=== PATIENT | female | born 1970 | race Caucasian/White ===

== ENCOUNTER → 2018-06-28 06:48 | Outpatient (CLI) | payer OTHER, SELFPAY ==
[2018-04-17 06:26] VITALS: BMI 39.7
--- NOTE | 2018-06-28 06:52 | CT_ITS ---
STUDY: CT ABDOMEN AND PELVIS WITH AND WITHOUT CONTRAST REASON FOR EXAM: Female, 47 years old. Microscopic hematuria for several years, negative bladder cystoscopy. RADIATION DOSAGE (If Supplied By Facility): CTDIvol = ( 20.19 ) mGy, DLP = ( 1966.22 ) mGycm TECHNIQUE: Transaxial images were obtained from the dome of the diaphragm to the symphysis pubis without oral contrast. 100CC ml of Isovue 300 contrast was administered following noncontrast imaging of the abdomen. Sagittal and coronal images were reconstructed. Individualized dose optimization techniques were used for this CT. COMPARISON: None. FINDINGS: The visualized lung bases are unremarkable. The visualized portions of the heart are within normal limits. Normal liver. There are surgical clips in the gallbladder fossa consistent with a prior cholecystectomy. Normal spleen. Normal pancreas. Normal bilateral adrenal glands. Normal right kidney. Normal left kidney. Normal visualized stomach. Normal small intestine. Normal colon. The appendix is visualized and appears normal. Normal abdominal aorta. Normal inferior vena cava. Normal retroperitoneum. Normal urinary bladder. There is a metallic density in the right posterior pelvis that may be related to prior tubal ligation. Of note, there is a surgical clip in the left upper abdomen (image 32) dictated represent a dislodged fallopian tube ligation clip (or sequela other surgery. The uterus is enlarged with a 3.6 x 1.9 cm slightly hypodense mass along the anterior uterine body compatible with a myometrial fibroid. There is mild fluid distention of the upper endometrial canal (image 91). There is a small umbilical hernia containing fat. Normal osseous structures. CT/CT Abd/Pelvis W/WO Contrast IMPRESSION: 1. No solid renal masses or hydronephrosis. No urinary tract calcifications. 2. Uterine fibroid. Upper endometrial canal indistinctness and fluid, limited detail on CT. Further evaluation with ultrasound and/or MRI may be useful. In the setting of vaginal bleeding, endometrial hyperplasia/neoplasm should be considered. 3. Surgical surgical clip in the left upper abdomen (and posterior hemipelvis) could represent dislodged fallopian tube ligation clips (or sequela of other surgery). Correlation with surgical history suggested. 4. Cholecystectomy. Electronically Signed: Jarod De Leon MD at 22:28 EST , Service support ,
== END ==
PROVIDERS: Family Provider Family Medicine; PCP Family Medicine; Referring Provider Urology; Visit Provider Urology
DX: R31.0 Gross hematuria (principal)
CPT/HCPCS: 74178; Q9967

== ENCOUNTER → 2018-07-03 16:53 | Outpatient (CLI) | payer OTHER, SELFPAY ==
--- NOTE | 2018-07-03 | EMB_PTH ---
PATIENT: NESSA CUMMINGS LOC: [facility] U#:[id number] AGE/SX: 54/F ROOM: RE07/03/[address]: Dr. Tina Bridges MD : 1970 BED: DIS: SPEC #: [id number] RECD: 07/03/18 16:51 STATUS: FRANDY DARIANA #: [id number] IMTIAZ: 07/03/18 00:[address]: Tina Bridges DEPT: SURGICAL PATHOLOGY RECD BY: Joseph Recinos ENTERED: 07/04/18 11:47 SP TYPE: ENDOM BX/C SPRING DR: Dr. Pato Rodriguez MD Tissues: Endometrium, NOS Procedures: Surgery Specimen Level IV HEADER OPERATION: Endometrial biopsy PRE-OP DIAGNOSIS: Abnormal uterine bleeding TISSUE SUBMITTED: Endometrial biopsy MICROSCOPIC DIAGNOSIS Endometrium, biopsy: Proliferative endometrium with focal glandular breakdown. Mild chronic endometritis. AM:miquel 07/05/18 MICROSCOPIC DESCRIPTION Slides are reviewed. GROSS DESCRIPTION Received in fixative is one container labeled with the patient's name and designated endometrial biopsy. The specimen consists of multiple fragments of hemorrhagic soft tissue that in aggregate measure 2.5 x 2 x 0.2 cm. The specimen is totally submitted in one cassette. / SJ:miquel 07/04/18 TC:3 CPT: 17776
[2018-07-03 10:58] VITALS: BMI 39.7
[2018-07-09 04:08] LABS: HPV Genotype 16, Aptima Negative (Negative)
[2018-07-10 11:04] LABS: HPV APTIMA, High Risk Positive (Negative); HPV Genotype 18,45 Aptima Negative (Negative)
== END ==
PROVIDERS: Family Provider Family Medicine; PCP Family Medicine; Referring Provider Obstetrics & Gynecology; Visit Provider Obstetrics & Gynecology
DX: Z12.4 Encounter for screening for malignant neoplasm of cervix (principal); N93.9 Abnormal uterine and vaginal bleeding, unspecified
CPT/HCPCS: 87624; 88175; 88305; G0145

== ENCOUNTER → 2018-07-11 07:25 | Outpatient (CLI) | payer OTHER, SELFPAY ==
[2018-07-03 10:58] VITALS: BMI 39.7
[2018-07-08 09:29] VITALS: BMI 39.7
--- NOTE | 2018-07-11 07:00 | BI_ITS ---
MAMMOGRAPHY - BILATERAL SCREENING REASON FOR EXAM: Female, 47 years old. Routine annual screening examination. PERTINENT HISTORY: Non-contributory. Comparison is made with prior study dated June 20, 2012 and May 03, 2011. TECHNIQUE: Digital bilateral breast juan diego (3D mammographic acquisition) in the CC and MLO projections. 2-D mediolateral oblique (MLO) and craniocaudad (CC) views of both breasts were obtained. CAD: Full Field Digital Mammography with Computer Added Detection was performed. COMPARISON: . Comparison is made with prior study dated June 20, 2012 and May 03, 2011. FINDINGS: Breast Composition: There are scattered areas of fibroglandular density. There are no dominant masses or suspicious calcifications. Stable small bilateral axillary lymph nodes. No other significant abnormalities are identified. There has been no significant change since the prior study. BI/SCREEN MAMM (CAD) W/JUAN DIEGO BILAT IMPRESSION: Stable bilateral screening mammogram. Yearly follow-up mammogram recommended. (A) ASSESSMENT CATEGORY: BIRADS Category 2: Benign. A letter regarding these results will be sent to the patient by the facility within 30 days. Approximately 10% of breast cancers are not detected by mammography. A normal mammogram should not delay biopsy of a clinically suspicious abnormality. [id number] Electronically Signed: Arslan Carreon MD at 8:54 EST , Service support ,
== END ==
PROVIDERS: Family Provider Family Medicine; PCP Family Medicine; Referring Provider Obstetrics & Gynecology; Visit Provider Obstetrics & Gynecology
DX: Z12.31 Encounter for screening mammogram for malignant neoplasm of breast (principal)
CPT/HCPCS: 77063; 77067

== ENCOUNTER → 2018-07-17 07:47 | Outpatient (CLI) | payer OTHER, SELFPAY ==
[2018-07-03 10:58] VITALS: BMI 39.7
[2018-07-08 09:29] VITALS: BMI 39.7
--- NOTE | 2018-07-17 07:49 | US_ITS ---
STUDY: ULTRASOUND OF THE FEMALE PELVIS - COMPLETE REASON FOR EXAM: Female, 47 years old. Pelvic pain. LMP: June 21, 2018. TECHNIQUE: Transabdominal and Transvaginal TECHNICAL QUALITY: Adequate. COMPARISON: CT of the abdomen and pelvis, June 28, 2018. FINDINGS: The uterus is anteverted and is in a midline position. The uterus measures 13.8 x 7.1 x 5.4 cm. Normal uterine cervix. The endometrium measures 15.6 mm in thickness, and is . There is no demonstrated endometrial mass. There is a 5.1 x 4.7 x 4.6 cm fibroid in the right anterior lower uterine segment. There is a 2.4 x 2.9 x 1.9 cm fibroid in the posterior left fundus. I.U.D. - The patient does not have an I.U.D. The right ovary is visualized. The right ovary measures 2.7 x 2.2 x 1.0 cm. There is no right ovarian cyst or ovarian mass. There is no visualized right adnexal mass or complex lesion. There is normal arterial and normal venous vascularity. The left ovary is visualized. The left ovary measures 2.7 x 2.3 x 1.9 cm. There is a 1.3 cm dominant follicle versus small cyst. There is no visualized left adnexal mass or complex lesion. There is normal arterial and normal venous vascularity. There is no fluid in the cul-de-sac. The pre void volume of the bladder was ml. The post void volume of the bladder was ml. Polycystic ovary disease: No. US/Pelvic (Non ) IMPRESSION: 1. Fibroid uterus. Largest fibroid correlates with that seen on CT. 2. Prominent endometrium. Correlate with menstrual cycle. 3. Normal ovaries. Electronically Signed: Abelardo Galvan DO at 18:10 EST Tel [phone], Service support ,
--- NOTE | 2018-07-17 07:49 | US_ITS ---
STUDY: ULTRASOUND OF THE FEMALE PELVIS - COMPLETE REASON FOR EXAM: Female, 47 years old. Pelvic pain. LMP: June 21, 2018. TECHNIQUE: Transabdominal and Transvaginal TECHNICAL QUALITY: Adequate. COMPARISON: CT of the abdomen and pelvis, June 28, 2018. FINDINGS: The uterus is anteverted and is in a midline position. The uterus measures 13.8 x 7.1 x 5.4 cm. Normal uterine cervix. The endometrium measures 15.6 mm in thickness, and is . There is no demonstrated endometrial mass. There is a 5.1 x 4.7 x 4.6 cm fibroid in the right anterior lower uterine segment. There is a 2.4 x 2.9 x 1.9 cm fibroid in the posterior left fundus. I.U.D. - The patient does not have an I.U.D. The right ovary is visualized. The right ovary measures 2.7 x 2.2 x 1.0 cm. There is no right ovarian cyst or ovarian mass. There is no visualized right adnexal mass or complex lesion. There is normal arterial and normal venous vascularity. The left ovary is visualized. The left ovary measures 2.7 x 2.3 x 1.9 cm. There is a 1.3 cm dominant follicle versus small cyst. There is no visualized left adnexal mass or complex lesion. There is normal arterial and normal venous vascularity. There is no fluid in the cul-de-sac. The pre void volume of the bladder was ml. The post void volume of the bladder was ml. Polycystic ovary disease: No. US/Transvaginal Non- IMPRESSION: 1. Fibroid uterus. Largest fibroid correlates with that seen on CT. 2. Prominent endometrium. Correlate with menstrual cycle. 3. Normal ovaries. Electronically Signed: Abelardo Galvan DO at 18:10 EST Tel [phone], Service support ,
== END ==
PROVIDERS: Family Provider Family Medicine; PCP Family Medicine; Referring Provider Obstetrics & Gynecology; Visit Provider Obstetrics & Gynecology
DX: R10.2 Pelvic and perineal pain (principal)
CPT/HCPCS: 76830; 76856; 93976

== ENCOUNTER 2018-07-25 06:29 | Day surgery (SDC) | payer OTHER, SELFPAY ==
[2018-07-03 10:58] VITALS: BMI 39.7
[2018-07-18 15:48] VITALS: BMI 39.7
[2018-07-22 09:47] LABS: Thyroid Stim Hormone (TSH) 1.95 uIU/mL (0.358-3.74)
[2018-07-22 12:24] LABS: Hematocrit 36.3 % (37-47); Mean Corpuscular Volume 80.5 fL (81-99); Red Blood Count 4.51 M/mm3 (4.2-5.4); White Blood Count 8.4 K/mm3 (4.4-11.0)
[2018-07-22 12:25] LABS: Mean Corp Hgb Conc 30.3 g/gl (32-36); Mean Corpuscular Hgb 24.4 pg (27.0-32.0); Mean Platelet Vol. 9.9 fl (6.2-12.0); Platelet Count 326 K/mm3 (150-450); RBC Distribution Width CV 16.2 % (11.6-14.6); RBC Distribution Width SD 47.6 fl (35.1-43.9)
[2018-07-22 12:30] LABS: Basophil% 0.1 % (0-1); Eosinophils% 1.3 % (0-5); Lymphocyte % 22.5 % (19-41); Monocyte% 3.2 % (0-10); Neutrophil % 72.8 % (47-70); POSITIVE COUNT NO; POSITIVE DIFFERENTIAL NO; POSITIVE MORPHOLOGY NO
--- NOTE | 2018-07-24 10:51 | HP.PCM_ITS ---
- Problem List (1) Abnormal uterine bleeding Status: Acute Comment: discussed options, bloodwork and US ordered, EMB, plan LAVH BS cysto History and Physical Date of Admission: 07/25/18 Intake Vital Signs 07/03/18 Body Mass Index (BMI) 39.7 07/03/18 Height 5 ft 4 in 07/03/18 Weight: 230 lb 07/03/18 Body Mass Index (BMI) 39.4 07/03/18 Blood Pressure 108/72 Intake Visit Reasons: annual Chief Complaint: NEW annual Manager [employer] Required: No Is patient in pain?: Yes Allergies meperidine [From Demerol] Allergy (Verified 07/03/18 10:52) Swelling morphine Allergy (Verified 07/03/18 10:52) Swelling promethazine [From Phenergan] Allergy (Verified 07/03/18 10:52) Swelling Medications mirabegron ER 50 mg tablet,extended release 24 hr 50 mg PO DAILY 07/03/18 [History Confirmed 07/03/18] Is last menstrual period known: No Post menopausal: No Patient : No : No [facility] Medical History History of rheumatic fever (Acute) Surgical History delivery delivered (Acute) H/O tubal ligation (Acute) History of cholecystectomy (Acute) brain tumor removed (Acute) Family History Father CAD (coronary artery disease) PVD (peripheral vascular disease) Bladder cancer Mother Colon cancer Cancer uterine Other Diabetes Social History Smoking Status: Never smoker alcohol intake: never substance use type: does not use caffeine: Yes what type of physical activity do you participate in: walking seatbelt use: always do you feel safe at home: Yes additional social history: Naty Michelle 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 Date Name GA/Weeks Outcome Route Bth Weight Infant Gen Labor Lgth Anesthesia Del Locatn Provider FOB Unknown 1996 Forrest live - full term Unknown 2001 Martinez live - full term HPI annual: Details: NESSA CUMMINGS is a 47 year old who presents for annual exam. she has been having irregular bleeding. she has had bleeding most days. she has seen lakesha jordan for urinary issues- mixed incontiennce and pelvic floor weakness. Last PAP: due History of abnormal PAP: no Last mammogram: due Female Reproductive History Cycle Length: <21 Bleeding Duration: 10 Menopausal Symptoms: No hot flashes, No night sweats, No weight change, No mood changes, No difficulty concentrating, No sleep problems, No change in libido ROS Const Constitutional: Denies night sweats Cardio Card: Denies chest pain Resp Resp: Denies cough or dyspnea GI GI: Reports as per HPI; denies abdominal pain, bloating, constipation, nausea or vomiting : Denies hot flashes or nipple discharge Skin Skin/Breast: Denies changing lesions, breast lump, breast pain, breast skin changes or nipple discharge Psych Psych: Denies change in sex drive or difficulty concentrating Exam Const General: cooperative, healthy appearing, comfortable, no acute distress, well developed, well groomed [facility] Head: normal to inspection, normocephalic Ears: hearing grossly normal bilaterally, external ears normal Nose: external nose normal Face and sinus: normal facial exam Neck Neck: normal visual inspection, full ROM, no lymphadenopathy Thyroid: thyroid normal Chest Chest palpation & inspection: normal inspection of the chest Breast inspection: normal inspection of the breasts, normal inspection of the axillae Breast palpation: normal palpation of the breasts, normal palpation of the axillae, no axillary lymphadenopathy Resp Effort & Inspection: normal respiratory effort GI Inspection: normal to inspection, non-distended Palpation: soft, no hepatosplenomegaly, no guarding General: bladder normal to palpation External Female Exam: normal external appearance, normal appearance of the urethra, no lesions Urethra: normal appearance of the urethra, normal palpation Speculum Exam - Vagina: normal appearance of the vagina, normal vaginal discharge Speculum Exam - Cervix: normal appearance of the cervix, no cervical discharge, no lesions, nontender Bimanual Exam- Vagina & Uterus: normal bimanual exam, uterine size normal, bladder normal to palpation, No cervical tenderness, uterine mobility normal, uterine consistency normal, uterus non-tender, no cervical motion tenderness Bimanual Exam- Adnexa, other: normal adnexae, no adnexal masses, adnexae non- tender Skin General: no rashes or lesions noted Neuro General: alert, moves all extremities, no focal motor deficits Extrem General: normal to inspection, no pedal edema Psych Appearance: grossly normal Mental Status: mental status grossly normal Affect: normal affect Speech and Movement: speech and movement normal Attitude: cooperative Office Procedures Endometrial Biopsy Endometrial Biopsy Test: Yes declined Consent Signed: Yes Time out checklist: patient, procedure, site marked/identified, positioning of patient, supplies available, allergies confirmed, team agrees on procedure Time out time: 15:00 tenaculum used: Yes dilator used: No Details: Cervix prepped with betadine and pipelle inserted into uterus without complication. Specimen obtained and sent to lab for analysis. All instruments removed from vagina without complications. Excellent hemostasis noted. Assessment & Plan Problems 1. Abnormal uterine bleeding N93.9 discussed options, bloodwork and US ordered, EMB, plan LAVH BS cysto 2. Intramural leiomyoma of uterus D25.1 discussed options, bloodwork and US ordered, EMB, plan LAVH BS cysto Plan see problem list. emb done. discussed surgical risks including risks of anesthesia, infection, bleeding, injury to bowel, bladder or blood vessels, and patient wishes to proceed with surgery. Orders Orders: PAP IG HPV APTIMA /18,45 07/03/18 Endometrial Biopsy 07/03/18 R10.2 SCREEN MAMM (CAD) W/JUAN DIEGO BILAT 07/03/18 Thyroid Stim Hormone (TSH) 07/03/18 H66.90 CBC W/Diff, Automated 07/03/18 R10.2 Pelvic (Non ) 07/03/18 R10.2 Transvaginal Non- 07/03/18 R10.2 Coding Level of Care Code Off vis,new,prev 40-64yrs Diagnoses Abnormal uterine bleeding N93.9 Intramural leiomyoma of uterus D25.1 ??Uterine leiomyoma location: intramural Additional Codes Endometrial Biopsy (98166) UPDATE- I have seen the patient and performed any clinically relevant updates to the history and physical exam. Tina Bridges MD
[2018-07-25] VITALS (11 sets, daily range): BP systolic 96–124; BP diastolic 60–88; PULSE 65–83; RESP 14–18; TEMP 36.4–36.8; O2SAT 94–100; BMI 39.5
[2018-07-25] MEDS: Bupivacaine 0.25% 30 ML Vial (06:50)
[2018-07-25 06:55] LABS: Bedside Glucose 68 mg/dL (70-110)
[2018-07-25] MEDS: Phenazopyridine 95 MG Tablet 190 MG PO (06:57)
[2018-07-25] MEDS: Scopolamine 1mg/72hr Patch 1 PATCH TRANSDERM. (06:58)
[2018-07-25] MEDS: Celecoxib 200 MG Capsule 400 MG PO (06:58)
[2018-07-25] MEDS: Acetaminophen 500 MG Tablet 1000 MG PO ×2 (06:58→14:34)
[2018-07-25] MEDS: Enoxaparin 40 MG/0.4 ML Syringe SC (06:59)
[2018-07-25] MEDS: Gabapentin 600 MG Tablet PO ×2 (06:59)
[2018-07-25] MEDS: Lactated Ringers 1,000 ML 40 ML IV (07:24)
[2018-07-25] MEDS: Magnesium Sulfate 4gm/100mL 4 GM/100 ML IV.SOLN. IV (07:27)
--- NOTE | 2018-07-25 08:30 | HYST_PTH ---
PATIENT: NESSA CUMMINGS LOC: [facility] [place] U#:[id number] AGE/SX: 48/F ROOM: RE07/25/[address]: Dr. Tina Bridges MD : 1970 BED: DIS: 07/25/2018 SPEC #: [id number] RECD: 07/25/18 14:10 STATUS: FRANDY DARIANA #: [id number] IMTIAZ: 07/25/18 08:[address]: Tina Bridges DEPT: SURGICAL PATHOLOGY RECD BY: Joseph Recinos ENTERED: 07/25/18 14:42 SP TYPE: HYSTERECT OTHR DR: Dr. Pato Rodriguez MD Tissues: Uterus, NOS Procedures: Surgery Specimen Level V HEADER OPERATION: Total laparoscopic hysterectomy, bilateral salpingectomy PRE-OP DIAGNOSIS: Intramural leiomyoma of uterus TISSUE SUBMITTED: Uterus, cervix, bilateral tubes MICROSCOPIC DIAGNOSIS Uterus, hysterectomy: Cervix - nabothian cysts. Endometrial polyp - simple hyperplasia without atypia. Endometrium - mildly disordered proliferative endometrium. Myometrium - leiomyomas and focal superficial adenomyosis. Right fallopian tube - benign paratubal cysts. Left fallopian tube - no pathologic change. AM:miquel 07/26/18 MICROSCOPIC DESCRIPTION Slides are reviewed. GROSS DESCRIPTION Received in fixative is one container labeled with the patient's name and designated uterus. The specimen consists of a uterus with attached cervix, detached right fallopian tube and attached left fallopian tube. The uterus with cervix measures 11 x 7.5 x 6.5 cm and weighs 238 gm. The ectocervix is oval in contour and free of mass lesions. The endocervical canal measures 4 cm in length and is grossly unremarkable. The triangular endometrial cavity measures 5.5 x 3.5 cm. The posterior endometrial surface contains a smooth, glistening, fleshy polyp measuring 3 cm in greatest dimension. The myometrium immediately beneath the polyp is not indurated. The myometrium measures 2.3 cm in average thickness and contains two rubbery nodules ranging in size from 1 to 4.5 cm. The nodules are intramural in location. On cut sections, the nodules have a whorled appearance without areas of cyst formation, necrosis or hemorrhage. The right and left fallopian tubes are similar in appearance. The right fallopian tube measures 4 cm in length and left fallopian tube measures 6 cm in length. The soft tissue adjacent to the mid portion of the right fallopian tube contains a smooth, glistening cyst measuring 1.5 cm in greatest dimension and containing clear fluid. Needle Setter sections are submitted in 13 cassettes as follows: 1 - anterior cervix, 2 - posterior cervix, 3 & 4 - endometrial polyp, 5 & 6 - anterior uterine wall, 7 & 8 - posterior uterine wall, 9 - smaller myometrial mass, 10 & 11 - largest myometrial mass, 12 - right fallopian tube and paratubal cyst, 13 - left fallopian tube. / AM:miquel 07/25/18 TC:1 CPT: 56478
[2018-07-25] MEDS: Lubricating Jelly 60 GM Tube 30 GM TOPICAL (08:39)
--- NOTE | 2018-07-25 08:46 | OP.PCM_ITS ---
Problem List (1) Abnormal uterine bleeding Status: Acute Comment: discussed options, bloodwork and US ordered, EMB, plan [facility] BS cysto Report of Operation Date of Procedure: 07/25/18 Pre-Operative Diagnosis: aub Post-Operative Diagnosis: same Surgery/Procedure Performed:: h bs cysto Description of Surgical Findings:: enlarged uterus with fibroid and limited vaginal access minimal uterine descent box toe maker: Yaneth Rae Type of Anesthesia:: General Special Medications: none Specimen's removed: uterus tubes Drains: cruz Estimated Blood Loss (mL): 350 Fluids Replaced: crystalloid Description of Procedure: Patient received preoperative antibiotics and SCDs were on preoperatively. Patient was taken back to the operating room and placed in the dorsal lithotomy position. General anesthesia was induced and patient was prepped and draped in normal sterile fashion. Uterine manipulator was placed inside the uterus and Cruz catheter placed in the bladder. The umbilicus was grasped with towel clamps and an intraumbilical incision was made after injecting with quarter percent Marcaine and a Veress needle entered into the abdomen confirmed to be intra-abdominal with a low opening pressure. Abdomen was insufflated with CO2 gas and the Veress needle removed and the 5 mm trocar was placed under direct visualization without complication. Right and left lower quadrants were transilluminated and injected with quarter percent Marcaine and 5 mm ports placed under direct visualization. Pelvis was well visualized see operative findings for additional information. Bilateral fallopian tubes were identified and transected with the LigaSure device across the mesosalpinx to the level of the utero-ovarian ligament which was also transected with the LigaSure device. The broad ligament was opened up by transecting the round ligament bilaterally and skeletonizing the uterine vessels bilaterally and creating a bladder flap using the LigaSure device. The uterine arteries were transected bilaterally with good visualization of the bladder and the ureters were seen to be inferior lateral to the operative area. Attention was then paid to the vaginal portion of the procedure and the cervix was grasped with Emerita clamps and very minimal descent and limited uterine axis was noted so the decision to convert to a total laparoscopic hysterectomy was made. A different uterine manipulator was inserted into the uterus with the vaginal ring for manipulation. Attention was then paid to the microscopic portion again and the anterior and posterior colpotomies were made with monopolar scissors and carried through bilaterally to detach the uterus from the vaginal cuff with good visualization of lateralization of the ureters. Attention was then paid to the vaginal portion of the procedure and after the uterus was removed without complication the vaginal mucosa was reapproximated incorporating the posterior peritoneum. This was reapproximated using 0 Vicryl [id number] sutures. Excellent hemostasis was noted. The cystoscopy was then performed and bilateral ureteral strong spray was noted and the bladder was noted to have no abnormality or lesions seen. Cruz catheter was replaced and then attention paid to the abdominal portion of the procedure again. The pelvis and cul-de-sac was well visualized and no significant active bleeding noted but some raw areas were seen on the peritoneum and therefore Kelly was applied. Pressure was taken down and the areas visualized and noted of excellent hemostasis. All ports were removed under direct visualization without complication and the abdomen was desufflated of air. The instruments removed from the abdomen and the vagina vaginal sweep was negative. Port sites on the abdomen were closed with 4-0 Monocryl interrupted sutures and Steri's and windows were applied. She was awoken and taken recovery in stable condition. Grafts/Implants Used: none - Complications none - Admit VTE Documentation VTE Present on Admission: No VTE Mechan Device Prophylaxis: SCD's VTE Pharm Prophylaxis ordered?: Yes
--- NOTE | 2018-07-25 08:49 | PCM.DC.VHY ---
Discharge Diet: No Restrictions Discharge Activity: Return to Normal Activity, May Not Drive, May Shower May resume sexual activity in: 6-8 weeks Call your doctor if your incision/area has: Continuous Slow Oozing, Sudden Increased Bleeding, Increased Pain/ Swelling, Increased Redness, Foul Smelling Discharge Call your doctor if you observe: Fever of 101 or Higher, Inability to urinate, Inability to have a bowel movement, Using more than one pad per hour Allergies/Adverse Reactions: Allergies meperidine [From Demerol] Allergy (Verified 07/18/18 15:48) Swelling morphine Allergy (Verified 07/18/18 15:48) Swelling promethazine [From Phenergan] Allergy (Verified 07/18/18 15:48) Swelling oxycodone [From Percocet] Adverse Reaction (Severe, Verified 07/18/18 15:48) Nausea/Vom/Diarrhea Medications to take at Discharge mirabegron ER 50 mg tablet,extended release 24 hr 50 mg PO DAILY 07/03/18 Escitalopram Oxalate [Lexapro] 10 mg PO DAILY 07/18/18 Hydrocodone/Acetaminophen [[place] 5-325 Tablet] 1 each PO Q4H PRN PRN 4 Days #15 tablet 07/25/18 Ibuprofen [Motrin] 600 mg PO Q6H PRN PRN #30 tablet 07/25/18 The following prescriptions were given: Hydrocodone/Acetaminophen [[place] 5-325 Tablet] 1 each PO Q4H PRN PRN 4 Days #15 tablet PRN Reason: Pain Ibuprofen [Motrin] 600 mg PO Q6H PRN PRN #30 tablet PRN Reason: Pain Primary Care Physician: Pato Rodriguez MD [Primary Care Provider] - Test Results: Test results from this visit will be discussed in further detail at your follow-up appointment, if applicable. Please Follow Up With: Tina Bridges MD - [phone]
[2018-07-25] MEDS: Lactated Ringers 1,000 ML 70 ML IV (11:47)
[2018-07-25] MEDS: Ketorolac 30 MG/ML Syringe IV (12:08)
[2018-07-25] MEDS: Lactated Ringers 1,000 ML 100 ML IV (12:12)
[2018-07-25] MEDS: Docusate Sodium 100 MG Capsule PO (14:34)
--- NOTE | 2018-07-25 17:29 | PCM.PN.OB ---
Subjective: doing wll no cp sob n v tolerating po ambulating, needs to void more - Physical Exam General: Alert, Oriented x3 Vital Signs Temp Pulse Resp BP Pulse Ox 98 F 83 16 103/69 98 07/25/18 16:26 07/25/18 16:26 07/25/18 16:26 07/25/18 16:26 07/25/18 16:30 Oxygen Flow Rate (L/min) 2 Oxygen Delivery Method Room Air Weight: 230 lb 9.656 oz Body Mass Index (BMI) 39.5 Intake and Output for Last 24 Hours 07/23/18 07/24/18 07/25/18 23:59 23:59 23:59 Intake Total 2656 / 2656 Output Total 740 / 740 Balance 1916 / 1916 POC Glucose 07/25/18 06:52 POC Glucose 68 L Medical Necessity - Tobacco Use Smoking Status: Never smoker Tobacco Use: Non-smoker Assessment/Plan All Active Problems (Last Reviewed 07/18/18 @ 15:48 by Cristiana Navarro) HPV test positive (Acute) Abnormal uterine bleeding (Acute) Otitis media (Acute) Uterine fibroid (Resolved) s/p TLH BS cysto ready for dc home when voiding
== END 2018-07-25 18:17 | disposition home or self-care (01) ==
LOC: SDC 06:30 → AC 06:31 → MS3 09:13
PROVIDERS: Family Provider Family Medicine; PCP Family Medicine; Referring Provider Obstetrics & Gynecology; Visit Provider Obstetrics & Gynecology
PROC: 0UT9FZZ Resection of Uterus, Via Natural or Artificial Opening With Percutaneous Endoscopic Assistance (ICD-10-PCS; CPT 58571; principal; 2018-07-25 08:05)
DX: N93.9 Abnormal uterine and vaginal bleeding, unspecified (principal); D25.1 Intramural leiomyoma of uterus; N88.8 Other specified noninflammatory disorders of cervix uteri; N84.0 Polyp of corpus uteri; N80.0 Endometriosis of uterus; N83.8 Other noninflammatory disorders of ovary, fallopian tube and broad ligament; Z90.49 Acquired absence of other specified parts of digestive tract; N32.81 Overactive bladder
CPT/HCPCS: 00840; 58571; 36415; 82962; 84443; 85025; 86850; 86900; 88307; J7120; J2405

== ENCOUNTER → 2018-12-17 07:42 | Outpatient (CLI) | payer SELFPAY ==
[2018-09-10 13:45] VITALS: BMI 39.5
--- NOTE | 2018-12-17 07:52 | CT_ITS ---
STUDY: CARDIAC CALCIUM SCORING - CT CHEST REASON FOR EXAM: Female, 48 years old. Family history of heart disease. Rheumatic fever as a child. RADIATION DOSAGE (If Supplied By Facility): CTDIvol = ( 12.19 ) mGy, DLP = ( 170.66 ) mGycm TECHNIQUE: Axial non-enhanced images were acquired through the heart for the sole purpose of measuring coronary artery calcium. Individualized dose optimization techniques were used for this CT. COMPARISON: None. FINDINGS: This portion of the report is being generated solely for the evaluation of noncoronary artery structures which have been assessed on plain another report. The visualized lungs are well-expanded and free of mass or infiltrate. Normal heart. Normal pericardium. Bilateral mediastinum and mansi. Normal pulmonary arteries. There is minimal atherosclerotic changes of the visualized thoracic aorta. There are degenerative changes of the thoracic spine. Splenomegaly. CT/Limited Chest CT w/CCTA IMPRESSION: 1. Minimal atherosclerotic changes of the aortic arch. 2. Degenerative changes of the thoracic spine. 3. Splenomegaly. Electronically Signed: Abelardo Galvan DO at 22:27 EDT Tel [phone], Service support ,
[2018-12-17 07:56] VITALS: BP 115/82; PULSE 70; RESP 16; O2SAT 99; BMI 38.9
--- NOTE | 2018-12-17 12:31 | CA.SCORE ---
Calcium Scoring Date of Study:: 12/17/18 Coronary Calcium Scoring: High-resolution Computed Tomographic imaging of the chest was performed on [12/17/2018], with particular attention paid to the coronary arteries. Images from the examination were analyzed for the presence and extent of coronary artery calcification , using coronary calcium quantification software. The patient tolerated the procedure well and there were no complications. The results of the coronary calcification analysis are provided below. - Findings Left Main (LM): 0 Left Anterior Descending (LAD): 0 Left Circumflex (LCX): 0 Right Coronary Artery (RCA): 0 Total Agatston Score: 0 Percentile Rankin - Conclusion Calcium Scoring Interpretation: 0 No identifiable atherosclerotic plaque. Very low cardiovascular disease risk. <5% chance of presence coronary artery disease A Negative Examination 1-10 Minimal Plaque burden. Significant coronary artery disease very unlikely. 11-100 Mild plaque burden. Likely mild or minimal coronary atherosclerosis. 101-400 Moderate plaque burden Moderate non-obstructive coronary artery disease highly likely. Over 400 Extensive plaque burden. High likelihood of at least one significant coronary stenosis (>50% diameter) Calcium Score: 0 Negative Examination - The above suggests no evidence of atherosclerotic plaquing. A full evaluation of cardiac risk should include assessment of all conventional risk factors, and the scores and percentiles reported herein should be evaluated in this context.
== END ==
PROVIDERS: Family Provider Family Medicine; PCP Family Medicine; Referring Provider Internal Medicine Cardiovascular Disease; Visit Provider Internal Medicine Cardiovascular Disease
DX: Z82.49 Family history of ischemic heart disease and other diseases of the circulatory system (principal); Z86.19 Personal history of other infectious and parasitic diseases
CPT/HCPCS: 75571; 76380

== ENCOUNTER → 2019-06-13 14:22 | Outpatient (CLI) | payer OTHER, BC, SELFPAY ==
[2019-06-11 16:14] VITALS: BMI 39.1
--- NOTE | 2019-06-13 14:23 | RAD_ITS ---
STUDY: X-RAY - LEFT KNEE REASON FOR EXAM: Female, 48 years old. PATIENT FELT A PAIN AND A POP IN KNEE 4 DAYS AGO TECHNIQUE: 4 view(s) of the knee. COMPARISON: None. FINDINGS: Normal visualized distal femur. Normal visualized proximal tibia and fibula. Normal proximal tibiofibular articulation. There is mild degenerative arthrosis of the medial femorotibial compartment. There is mild degenerative arthrosis of the lateral femorotibial compartment. There is mild degenerative arthrosis of the patellofemoral articulation. There is a soft tissue prominence in the suprapatellar region suggesting a small volume joint effusion. The soft tissue structures are unremarkable. RAD/Knee 4 or More Views IMPRESSION: Degenerative arthrosis with effusion. Electronically Signed: Harry Madrigal MD at 15:22 EST Tel , Service support ,
== END ==
PROVIDERS: PCP Family Medicine; Referring Provider Physician Assistant; Visit Provider Physician Assistant
DX: M25.562 Pain in left knee (principal)
CPT/HCPCS: 73564

== ENCOUNTER → 2019-06-19 12:36 | Outpatient (CLI) | payer OTHER, BC, SELFPAY ==
[2019-06-13 14:35] VITALS: BMI 39.1
--- NOTE | 2019-06-19 12:38 | MRI_ITS ---
STUDY: MRI LEFT KNEE REASON FOR EXAM: Left knee pain 1.5 weeks, question tibial plateau injury. TECHNIQUE: Standardized fat and water weighted pulse sequences were obtained in all 3 orthogonal planes. COMPARISON: Radiographs 06/13/2019. FINDINGS: Normal medial meniscus. There is arthrosis of the medial femorotibial compartment with small marginal osteophytes and partial thickness chondral loss of the medial femoral condyle (T2 sagittal image 9). Normal medial femoral condyle and tibial plateau. Normal medial collateral ligamentous complex (MCL). Normal distal semimembranosus, gracilis and semitendinosus tendons. Normal lateral meniscus. There is mild arthrosis of the lateral femorotibial compartment with mild irregularity of the articular cartilage of the lateral femoral condyle (T2 sagittal image 19). Normal lateral femoral condyle and tibial plateau. Normal proximal tibiofibular articulation. Normal lateral collateral (fibular) ligament. Normal popliteus tendon. Normal biceps femoris tendon. Normal anterior cruciate ligament (ACL). Normal posterior cruciate ligament (PCL). Normal congruent patellofemoral articulation. There is arthrosis of the patellofemoral compartment with partial thickness chondral loss (T2 sagittal image 13). Normal medial and lateral patellar retinaculum. Normal visualized quadriceps tendon. Normal patellar tendon. Normal Hoffa''s fat pad. There is a small joint effusion. There is an intra-articular body posterior to the distal posterior cruciate ligament (proton density sagittal images 18, 19) measuring 1 cm in length. There is mild edema in the subcutis adipose space. There is mild cystic change in the proximal tibia near the insertion site of the posterior cruciate ligament. MRI/Lower Ext Joint Only (Routine) IMPRESSION: Tricompartmental arthrosis. Small joint effusion. Posterior intra-articular body. No demonstrated tibial plateau fracture. Electronically Signed: Zac Whittington MD at 13:44 EST Tel , Service support ,
== END ==
PROVIDERS: PCP Family Medicine; Referring Provider Physician Assistant; Visit Provider Physician Assistant
DX: M23.92 Unspecified internal derangement of left knee (principal)
CPT/HCPCS: 73721

== ENCOUNTER → 2019-12-05 09:42 | Outpatient (CLI) | payer OTHER, BC, SELFPAY ==
[2019-12-05 06:13] VITALS: BMI 39.1
== END ==
PROVIDERS: PCP Family Medicine; Referring Provider Physician Assistant Surgical; Visit Provider Physician Assistant Surgical
DX: J02.9 Acute pharyngitis, unspecified (principal)
CPT/HCPCS: 87070

== ENCOUNTER → 2020-01-19 06:02 | Outpatient (CLI) | payer OTHER, BC, SELFPAY ==
[2019-12-05 06:13] VITALS: BMI 39.1
[2020-01-19 07:47] LABS: Ferritin 41 ng/mL (8-252); Iron Binding Capacity,Total 364 ug/dL (250-450)
== END ==
PROVIDERS: PCP Family Medicine; Referring Provider Family Medicine; Visit Provider Family Medicine
DX: D64.9 Anemia, unspecified (principal)
CPT/HCPCS: 36415; 82728; 83550

== ENCOUNTER 2020-03-30 06:56 | Day surgery (SDC) | payer OTHER, BC, SELFPAY ==
[2020-02-27 13:11] VITALS: BMI 39.1
--- NOTE | 2020-03-30 | COLBX_PTH ---
PATIENT: NESSA CUMMINGS LOC: EN U#:[id number] AGE/SX: 49/F ROOM: RE03/30/[address]: Dr. Ed Douglas MD : 1970 BED: DIS: 03/30/2020 SPEC #: [id number] RECD: 03/30/20 10:58 STATUS: FRANDY WESTBROOK #: [id number] IMTIAZ: 03/30/20 00:[address]: Ed Douglas DEPT: SURGICAL PATHOLOGY RECD BY: Trent Bonilla ENTERED: 03/30/20 10:59 SP TYPE: COLON BX OTHR DR: Dr. Ptao Longoria MD Tissues: Transverse colon Procedures: Surgery Specimen Level IV HEADER OPERATION: Colonoscopy (MAC) PRE-OP DIAGNOSIS: Screen for colon cancer Z12.11 TISSUE SUBMITTED: Transverse polyp MICROSCOPIC DIAGNOSIS Transverse colon polyp, biopsy: Fragments of tubulovillous adenoma. SJ:miquel 11/11/20 MICROSCOPIC DESCRIPTION Slides are reviewed. GROSS DESCRIPTION Received in fixative is one container labeled with the patient's name and designated transverse polyp. The specimen consists of a piece of penny-pink polyp measuring 1 x 1 x 0.8 cm. This piece is bisected. Also present in the container are multiple pieces of penny-pink soft tissue measuring in aggregate 2 x 1 x 0.3 cm. The entire specimen is submitted in one cassette. / SJ:miquel 03/30/20 TC:1 CPT: 91368
--- NOTE | 2020-03-30 06:00 | HP_ITS ---
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 The patient reports her last colonoscopy was over 10 years ago. She does have a family history of colon cancer in her mother at age under 60. Patient is not having any abdominal pain or blood in her stool. Her last colonoscopy was normal. ROS General General: No weight change or fatigue Cardio Cardiovascular: No murmur, pacemaker, heart disease, atrial fibrillation, high blood pressure, heart attack, heart stent, palpitations, shortness of breat with exertion or chest pain Psych Psychiatric: Yes depression; no anxiety Resp Respiratory: No shortness of breath, No sleep apnea, No cough, No COPD, No asthma, No emphysema, No wheezing Gastro Gastrointestinal: No abdominal pain, No nausea or vomiting, No diarrhea, Yes constipation, No blood in stool, Yes acid reflux, No hemorrhoids, No ulcers, No gallbladder problem, No black,tarry stools Alex Hematologic: No blood thinners, Yes anemia Exam Const General: cooperative Orientation: alert, oriented x3 Resp Effort & Inspection: normal respiratory effort Auscultation: clear to auscultation bilaterally Cardio Rate: regular rate Rhythm: regular rhythm Heart Sounds: no murmurs GI Inspection: non-distended Palpation: soft, nontender Assessment & Plan Problems 1. Family history of malignant neoplasm of colon in first degree relative diagnosed when younger than 60 years of age Z80.0 2. Screen for colon cancer Z12.11 Plan Patient requires screening colonoscopy. Her family member was diagnosed with colon cancer under age 60 so I would recommend that she has them every 5 years instead of 10. I explained endoscopy in detail to the patient. I explained the risks including but not limited to stroke or heart attack with anesthesia, perforation of the GI tract, bleeding, infection. I explained that any of these could necessitate further emergency surgery. The patient understands and all questions were answered sufficiently. The patient wishes to proceed with procedure. We discussed the current risks associated with COVID-19. While it is understood that there is a community spread of COVID-19, the risk of chuy COVID-19 while at [facility] ([facility]) is very low; however, the risk cannot be completely mitigated because of the community spread of the disease. We discussed in detail the risk of exposure to and/or potential harm posed by the COVID-19 virus with having a surgery/procedure at this time versus the risk of delaying the surgery/procedure. It is not possible to know either the risk of delaying the surgery or procedure or chance of getting an infection with perfect accuracy, but a joint decision was made to proceed at this time with the scheduled surgery/procedure as indicated on the consent form. Patient was notified that we will need to comply with any screening or testing [facility] wishes to perform or that surgery may be delayed for any positive results. Ed Douglas MD Pager: [facility] [address] [place] [address], [address] [place] [address] Office: Orders Orders: Colonoscopy Today Z12.11 Coding Level of Care Code Off vis,new,level 3 Diagnoses Family history of malignant neoplasm of colon in first degree relative diagnosed when younger than 60 years of age Z80.0 Screen for colon cancer Z12.11 I have re-examined the patient. There are no clinical changes since date of exam.
[2020-03-30 07:34] VITALS: BP 139/70; PULSE 75; RESP 18; TEMP 36.5; O2SAT 99; BMI 44.0
[2020-03-30] MEDS: Lactated Ringers 1,000 ML 100 ML IV (07:46)
--- NOTE | 2020-03-30 08:44 | OP.COLON_ITS ---
Patient Name: Yasmeen Jiménez Procedure Date: 03/30/2020 8:14 AM Date of : 1970 Age: 49 Procedure: Colonoscopy Indications: Screening for colorectal malignant neoplasm Providers: Ed Douglas MD Referring MD: Pato Longoria Md Medicines: Monitored Anesthesia Care Patient Profile: This is a 49 year old female. Refer to note in patient chart for documentation of history and physical. Last Colonoscopy: several years ago. Complications: No immediate complications. Estimated blood loss: Minimal. Procedure: Pre-Anesthesia Assessment: - Prior to the procedure, a History and Physical was performed, and patient medications and allergies were reviewed. The patient's tolerance of previous anesthesia was also reviewed. The risks and benefits of the procedure and the sedation options and risks were discussed with the patient. All questions were answered, and informed consent was obtained. Prior Anticoagulants: The patient has taken no previous anticoagulant or antiplatelet agents. After reviewing the risks and benefits, the patient was deemed in satisfactory condition to undergo the procedure. After I obtained informed consent, the scope was passed under direct vision. Throughout the procedure, the patient's blood pressure, pulse, and oxygen saturations were monitored continuously. The pediatric colonoscope was introduced through the anus and advanced to the cecum, identified by appendiceal orifice and ileocecal valve. The colonoscopy was performed without difficulty. The patient tolerated the procedure well. The quality of the bowel preparation was good. Scope In: 8:22:22 AM Scope Withdrawal Time 0 hours 6 minutes 17 seconds Scope Out: 8:41:10 AM Total Procedure Duration Time 0 hours 18 minutes 48 seconds Findings: A medium polyp was found in the transverse colon. The polyp was pedunculated. The polyp was removed with a hot snare. Resection and retrieval were complete. Verification of patient identification for the specimen was done. The exam was otherwise without abnormality on direct and retroflexion views. Impression: - One medium polyp in the transverse colon, removed with a hot snare. Resected and retrieved. - The examination was otherwise normal on direct and retroflexion views. Recommendation: - Await pathology results. - Repeat colonoscopy in 3 years for surveillance based on pathology results. - Discharge patient to home. - Resume previous diet. - Continue present medications. Procedure Code(s): --- Professional --- 35752, Colonoscopy, flexible; with removal of tumor(s), polyp(s), or other lesion(s) by snare technique Diagnosis Code(s): --- Professional --- Z12.11, Encounter for screening for malignant neoplasm of colon D12.3, Benign neoplasm of transverse colon (hepatic flexure or splenic flexure) CPT copyright 2017 [employer]. All rights reserved. The codes documented in this report are preliminary and upon powertrain calibration engineer review may be revised to meet current compliance requirements. Ed Douglas MD 03/30/2020 8:44:00 AM This report has been signed electronically. Number of Addenda: 0 Note Initiated On: 03/30/2020 8:14 AM
--- NOTE | 2020-03-30 08:44 | OP.CCLET_ITS ---
03/30/2020 Pato Longoria Md Re : Colonoscopy procedure for Yasmeen Jiménez Dear Von This procedure was performed on Monday, March 30, 2020. My impressions and recommendations are as follows: Impressions : - One medium polyp in the transverse colon, removed with a hot snare. Resected and retrieved. - The examination was otherwise normal on direct and retroflexion views. Recommendations : - Await pathology results. - Repeat colonoscopy in 3 years for surveillance based on pathology results. - Discharge patient to home. - Resume previous diet. - Continue present medications. My findings are described in the full procedure note, which is enclosed. If I can be of further assistance, please feel free to contact me at Doctor phone number(s): , Work: . Sincerely, Ed Douglas MD 03/30/2020 8:44:00 AM This report has been signed electronically.
[2020-03-30 08:45] VITALS: BP 114/83; PULSE 83; RESP 20; TEMP 36.5; O2SAT 97
[2020-03-30 08:50] VITALS: BP 112/86; BP 114/83; PULSE 79; RESP 16; O2SAT 97
[2020-03-30 08:55] VITALS: BP 114/83; BP 124/91; PULSE 74; RESP 16; O2SAT 99
[2020-03-30 09:00] VITALS: BP 114/83; BP 126/92; PULSE 70; RESP 16; TEMP 36.1; O2SAT 97
[2020-03-30 09:28] VITALS: BP 114/83
== END 2020-03-30 09:30 | disposition home or self-care (01) ==
LOC: EN 06:56 → AC 06:56
PROVIDERS: PCP Family Medicine; Referring Provider Family Medicine; Visit Provider Surgery
PROC: 0DJD8ZZ Inspection of Lower Intestinal Tract, Via Natural or Artificial Opening Endoscopic (ICD-10-PCS; CPT 45378; principal; 2020-03-30 08:25)
DX: Z12.11 Encounter for screening for malignant neoplasm of colon (principal); D12.3 Benign neoplasm of transverse colon; Z80.0 Family history of malignant neoplasm of digestive organs; Z88.5 Allergy status to narcotic agent; Z88.8 Allergy status to other drugs, medicaments and biological substances
CPT/HCPCS: 45385; 87426; 88305; C9803; J7120

== ENCOUNTER → 2020-09-03 10:49 | Outpatient (CLI) | payer OTHER, BC, SELFPAY ==
[2020-09-03 12:34] LABS: Hematocrit 41.1 % (37-47); Hemoglobin 12.4 g/dL (12.0-15.0); Mean Corp Hgb Conc 30.2 g/dL (32-36); Mean Corpuscular Hgb 25.9 pg (27.0-32.0); Mean Corpuscular Volume 85.8 fL (81-99); Mean Platelet Vol. 9.9 fl (6.2-12.0); Platelet Count 367 K/mm3 (150-450); RBC Distribution Width SD 43.5 fl (35.1-43.9); Red Blood Count 4.79 M/mm3 (4.2-5.4); White Blood Count 8.5 K/mm3 (4.4-11.0)
[2020-09-03 12:48] LABS: ALB/GLOB Ratio 0.8 RATIO (0.9-2.4); AST(SGOT) 14 U/L (15-37); Alanine Aminotransfer ALT/SGPT 29 U/L (13-56); Albumin, Serum 3.3 g/dL (3.2-5.0); Alkaline Phosphatase 105 U/L (45-117); Anion Gap 5 (5-15); BUN 10 mg/dL (7-18); BUN/Creat Ratio 13.1 RATIO (10-20); Calcium,Total 8.9 mg/dL (8.5-10.1); Chloride 104 mmol/L (98-107); Cholesterol 209 mg/dL (200); Creatinine, Serum 0.77 mg/dL (0.55-1.02); EST Glomerular Filtration Rate 85 mL/min (>60); Est Glom Filt Rate - Afr Amer 102 mL/min (>60); Globulin 4.2 g/dL (2.2-4.2); Glucose 100 mg/dL (74-106); High Density Lipoprotein 46 mg/dL; Potassium 3.8 mmol/L (3.5-5.1); Protein, Total 7.5 g/dL (6.4-8.2); Sodium Level 140 mmol/L (136-145); Triglycerides 204 mg/dL; Very Low Density Lipoprotein 41 mg/dL (5-40)
[2020-09-03 12:50] LABS: Mucous, Urine 0 SEEN /hpf (<or=2+); Red Blood Cells-Urine 0 SEEN /hpf (0-5); White Blood Cells 0 SEEN /hpf (0-5)
[2020-09-03 13:07] LABS: Color, Urine Yellow (Yellow); Glucose, Dipstick Normal (Normal); Ketone-Dipstick Negative (Negative); Leukocyte Esterase-Dipstick Negative /ul (Negative); Nitrite-Dipstick Negative (Negative); Occult Blood-Urine Negative /ul (Negative); Protein-Dipstick Negative (Negative); Specific Gravity, Urine 1.015 (1.002-1.030); Urine Bilirubin Dipstick Negative (Negative); Urine Clarity Clear (Clear); Urine Urobilinogen Normal (Normal)
[2020-09-03 13:13] LABS: Bacteria 1+ /hpf (None Seen); Squamous Epithelial Cells - UA 0-5 SEEN /hpf (5-10)
== END ==
PROVIDERS: PCP Family Medicine; Referring Provider Family Medicine; Visit Provider Family Medicine
DX: R10.9 Unspecified abdominal pain (principal); E66.9 Obesity, unspecified
CPT/HCPCS: 36415; 80053; 80061; 81001; 85027; 87086; 87088

== ENCOUNTER → 2020-11-17 12:09 | Outpatient (CLI) | payer OTHER, BC, SELFPAY ==
--- NOTE | 2020-11-17 12:12 | RAD_ITS ---
STUDY: X-RAY - LEFT SHOULDER REASON FOR EXAM: Female, 50 years old. PAIN TECHNIQUE: 5 view(s) of the shoulder. COMPARISON: None. FINDINGS: Normal glenohumeral articulation. Normal acromioclavicular joint. Normal acromion. Normal humeral head and visualized proximal humerus. The soft tissue structures are unremarkable. There is no demonstrated fracture. Normal visualized pulmonary apex. RAD/Shoulder min 2 Views IMPRESSION: Normal x-ray examination of the shoulder. Electronically Signed: Joshua Hilario MD at 23:59 EDT , Service support ,
== END ==
PROVIDERS: PCP Family Medicine; Referring Provider Family Medicine; Visit Provider Family Medicine
DX: M25.512 Pain in left shoulder (principal)
CPT/HCPCS: 73030

== ENCOUNTER → 2021-01-25 11:02 | Outpatient (CLI) | payer OTHER, BC, SELFPAY ==
--- NOTE | 2021-01-25 11:13 | RAD_ITS ---
STUDY: X-RAY - CERVICAL SPINE REASON FOR EXAM: Female, 50 years old. neck pain TECHNIQUE: 3 view(s) of the cervical spine were obtained. COMPARISON: None FINDINGS: Normal anterior atlantoaxial articulation. Normal odontoid process. Normal cervical lordosis. Normal vertebral bodies and endplates. Normal disc space heights. The soft tissue structures are unremarkable. There is no demonstrated fracture of the cervical spine. RAD/Cerv Spine 2 or 3 Views IMPRESSION: Unremarkable x-ray examination of the visualized cervical spine. Electronically Signed: Adela Langley MD at 0:24 EDT , Service support ,
== END ==
PROVIDERS: PCP Family Medicine; Referring Provider Chiropractor; Visit Provider Chiropractor
DX: M99.01 Segmental and somatic dysfunction of cervical region (principal)
CPT/HCPCS: 72040

== ENCOUNTER → 2021-04-11 12:39 | Outpatient (CLI) | payer OTHER, BC, SELFPAY ==
--- NOTE | 2021-04-11 12:43 | CT_ITS ---
INDICATION: ABD PAIN EXAMINATION: CT ABDOMEN AND PELVIS WITH CONTRAST - CT Abdomen And Pelvis W/ Contrast Injection TECHNIQUE: Helically acquired images were obtained of the abdomen and pelvis following IV contrast. A radiation dose optimization technique was used for this scan. Oral contrast: Enteric contrast administered. COMPARISON: None. FINDINGS: LOWER CHEST: Lung bases are clear. LIVER: Homogeneous. No focal mass. GALLBLADDER AND BILIARY TREE: Patient is status post cholecystectomy. There is mild prominence of central intrahepatic ducts likely postcholecystectomy distention. PANCREAS: No focal cystic or solid mass. SPLEEN: Normal size without focal cystic or solid mass. ADRENAL GLANDS: No nodules. KIDNEYS AND URETERS: Normal renal size and position. No hydronephrosis. PERITONEUM: No ascites or free air. No other fluid collection. BOWEL: No evidence of acute appendicitis. There is soft tissue attenuation at the cecum and ascending colon which extends along a craniocaudal length of 5.4 cm. This could represent incomplete distention. There is no surrounding inflammatory stranding to suggest colitis. The referring surgeon had performed a colonoscopy within the year which was reported normal. Tiny hiatal hernia. LYMPH NODES: No enlarged mesenteric or retroperitoneal lymph nodes. VESSELS: Aorta is non-dilated. URINARY BLADDER: Unremarkable. REPRODUCTIVE ORGANS: Ovaries within normal limits. Uterus is not visualized. ABDOMINAL WALL: Fat-containing umbilical hernia noted. BONES: Moderate degenerative changes at the facets lower lumbar spine. CT/Abdomen/Pelvis WITH Contrast IMPRESSION: No CT evidence for appendicitis. There is soft tissue attenuation along the wall of the descending colon could relate to incomplete distention as there is no surrounding inflammatory change and there is reported normal colonoscopy within the year. Tiny hiatal hernia noted. Tiny fat-containing ventral hernia at the umbilicus. Electronically Signed: Reji Harley MD at 15:49 EST Tel , Service support ,
[2021-04-11 15:10] LABS: Absolute Lymphocyte Count 1.68 X10^3/uL (0.83-4.51); Absolute Neutrophil Count 6.4 X10^3/uL (2.0-7.7); Basophil# 0.01 X10^3/uL; Basophil% 0.1 % (0-1); Eosinophil# 0.04 X10^3/uL; Eosinophils% 0.5 % (0-5); Hematocrit 44.5 % (37-47); Hemoglobin 13.9 g/dL (12.0-15.0); Lymphocyte # 1.68 X10^3/ul (0.83-4.51); Mean Corp Hgb Conc 31.2 g/dL (32-36); Mean Corpuscular Hgb 26.5 pg (27.0-32.0); Mean Corpuscular Volume 84.8 fL (81-99); Mean Platelet Vol. 9.9 fl (6.2-12.0); Monocyte% 3.6 % (0-10); NRBC Flagged by Analyzer 0 % (0-5); Neutrophil # 6.36 X10^3/uL (2.7-7.7); Neutrophil % 75.6 % (47-70); Platelet Count 373 K/mm3 (150-450); RBC Distribution Width CV 13.2 % (11.6-14.6); RBC Distribution Width SD 41.1 fl (35.1-43.9); Red Blood Count 5.25 M/mm3 (4.2-5.4); White Blood Count 8.4 K/mm3 (4.4-11.0)
[2021-04-11 15:24] LABS: ALB/GLOB Ratio 0.7 RATIO (0.9-2.4); AST(SGOT) 14 U/L (15-37); Alanine Aminotransfer ALT/SGPT 25 U/L (13-56); Albumin, Serum 3.5 g/dL (3.2-5.0); Alkaline Phosphatase 95 U/L (45-117); Anion Gap 6 (5-15); BUN 10 mg/dL (7-18); BUN/Creat Ratio 10.1 RATIO (10-20); Calcium,Total 9.7 mg/dL (8.5-10.1); Chloride 100 mmol/L (98-107); Creatinine, Serum 0.99 mg/dL (0.55-1.02); EST Glomerular Filtration Rate 63 mL/min (>60); Est Glom Filt Rate - Afr Amer 76 mL/min (>60); Globulin 4.9 g/dL (2.2-4.2); Glucose 87 mg/dL (74-106); Lipase 76 U/L (73-393); Potassium 3.8 mmol/L (3.5-5.1); Protein, Total 8.4 g/dL (6.4-8.2); Sodium Level 136 mmol/L (136-145)
== END ==
PROVIDERS: PCP Family Medicine; Referring Provider Family Medicine; Visit Provider Family Medicine
DX: R10.9 Unspecified abdominal pain (principal)
CPT/HCPCS: 36415; 74177; 80053; 83690; 85025; Q9967; A4216

== ENCOUNTER 2021-04-11 15:12 | Emergency (ER) | payer OTHER, BC, SELFPAY ==
[2021-04-11 15:12] VITALS: BP 158/99; PULSE 69; RESP 14; TEMP 36.4; O2SAT 99; BMI 40.8
--- NOTE | 2021-04-11 16:05 | EDS_ITS ---
HPI HPI - GI History of Present Illness Chief Complaint: Abd Pain Informant: patient Narrative Narrative: Patient presents with abdominal pain nausea and vomiting. She went out to eat on Sunday night. Her mother ate the same thing and has never had symptoms. At about 3 AM she awoke with pain around the umbilicus. The pain has started and stayed there. It has not moved. At about 10 in the morning she started with nausea vomiting. No hematemesis. No fever. Since then she really has not been able to keep anything down. The pain has stayed in the exact same spot. She has had constipation problems in the past but this does not at all feel like that. No fevers or chills. No back or flank pain. No urinary symptoms. She has had cholecystectomy, hysterectomy and tubal ligation. No appendectomy. She was seen prior to arrival here. She has outpatient blood work and a CT scan that was just completed. I have reviewed this information. I have brought up the images myself also. [facility] History History of arm fracture History of frequent headaches History of rheumatic fever Home Medications escitalopram oxalate 10 mg PO DAILY 07/18/18 [History Last Taken Unknown] hydrocodone-acetaminophen 1 tab PO Q6H PRN 3 Days #10 tab 04/11/21 [Rx Last Taken Unknown] ondansetron 4 mg PO Q8H PRN #10 tab 04/11/21 [Rx Last Taken Unknown] Allergy/AdvReac Type Severity Reaction Status Date / Time meperidine [From Demerol] Allergy Swelling Verified 04/11/21 15:15 morphine Allergy Swelling Verified 04/11/21 15:15 promethazine [From Phenergan] Allergy Swelling Verified 04/11/21 15:15 oxycodone [From Percocet] AdvReac Severe Nausea/Vom/ Verified 04/11/21 15:15 Diarrhea Family History Father CAD (coronary artery disease) PVD (peripheral vascular disease) Bladder cancer Heart disease Mother Colon cancer Cancer uterine Arthritis Other Diabetes Surgical History brain tumor removed delivery delivered H/O tubal ligation History of cholecystectomy S/P laparoscopic assisted vaginal hysterectomy ([facility]) (~07/25/18) Social History Smoking Status: Never smoker alcohol intake: never substance use type: does not use caffeine: Yes what type of physical activity do you participate in: walking seatbelt use: always do you feel safe at home: Yes additional social history: Anthonyeileen Michelle 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 is [employer]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 [employer] on [employer] ROS ROS ED Constitutional Constitutional ED: Denies chills or fever(s) ENT ENT ED: Denies rhinorrhea or sore throat Cardiovascular Cardiovascular: Denies chest pain Respiratory/Chest Respiratory/Chest: Denies cough or dyspnea Gastrointestinal Gastrointestinal: Reports abdominal pain, nausea and vomiting; Denies diarrhea Genitourinary Genitourinary ED: Denies dysuria, hematuria or urinary frequency Musculoskeletal Musculoskeletal: Denies back pain or myalgias Integumentary Denies rash Neurologic Neurologic: Denies headache(s) Endocrine Endocrinology: Denies polydipsia or polyuria Hematologic/Lymphatic Hematologic/Lymphatic: Denies easy bleeding or easy bruising Allergic/Immunologic Allergic/Immunologic ED: Denies mouth swelling or urticaria EXAM Physical Exam Const Vital Signs: 04/11/21 15:12 Temperature 97.6 F L Temperature Source Temporal Pulse Rate 69 Respiratory Rate 14 Blood Pressure 158/99 H Blood Pressure Mean 118 Pulse Ox 99 Oxygen Delivery Method Room Air Positive well nourished and well developed General Appearance ED: well developed and NAD HEENT Reports dry mucous membranes Mouth ED: Yes dry mucous membranes Mouth: dry mucous membranes Eyes General Eye ED: Negative for pale conjunctiva or scleral icterus Neck no JVD Cardio regular rate, regular rhythm and no murmurs GI non-distended GI Narrative: Patient does have some mild tenderness with deeper palpation around the umbilicus. But soft focal palpation does not hurt. Although there is a small hernia with fat on the scan, I do not feel herniation. When I have her sit up and strain I do not feel a change in herniation. There is no erythema or skin changes. Auscultation: normoactive bowel sounds Palpation: soft Extremity General Extremety ED: Negative for edema or tenderness General Extremity: Negative for edema Neuro Sensorium / Orientation: alert; Negative for confused or lethargic Psych mental status grossly normal Skin Lesions: no lesions Rashes: no rashes MDM MDM MDM Narrative Medical decision making narrative: I reviewed the patient's labs done prior to her visit. I also looked at her CT images and the CT reading. Patient got minimal improvement with Toradol. Although the nausea was improved with Zofran. Urine shows no sign of acute process. We then gave her some Vicodin. She s eemed to be resting quieter but still has discomfort. I did not talk to her about options. She would like to go home. I will write her for some meds for pain and nausea. I did do online prescribing report. I feel this patient has true discomfort and is not at all seeking pain meds. We did talk about returning. Even though her studies look normal now, things can change and if she has worsening symptoms, change in symptoms, fever or any other concerns she should return. Lab Data Attestation: I reviewed the patient's lab results. Labs: Laboratory Results - last 24 hr 04/11/21 17:25 Urine Color Yellow Urine Clarity Clear Urine pH 6.5 Ur Specific [place] 1.005 Urine Protein 15 H Urine Glucose (UA) Normal Urine Ketones 15 H Urine Occult Blood Negative Urine Nitrite Negative Urine Bilirubin Negative Urine Urobilinogen Normal Ur Leukocyte Esterase Negative Urine RBC 0 SEEN Urine WBC 0 SEEN Ur Squamous Epith Cells 0 SEEN Urine Bacteria RARE Urine Mucus 0 SEEN Discharge Plan Triage Chief Complaint: Abd Pain ED Provider: Akira Olmos Dx/Rx/DC Orders Clinical Impression: Abdominal pain, Nausea & vomiting Instructions: Abdominal Pain Prescriptions: New ondansetron 4 mg tablet,disintegrating 4 mg PO Q8H PRN (Reason: nausea and vomiting) Qty: 10 RF: 0 hydrocodone-acetaminophen 5-325 mg tablet 1 tab PO Q6H PRN (Reason: pain) 3 Days Qty: 10 RF: 0 No Action escitalopram oxalate 10 MG tablet 10 mg PO DAILY RF: 0 Primary Care Provider: Donta Negrete Referrals: Donta Negrete MD [Primary Care Provider] - 1-2 Days if not improving Disposition Disposition: Home, Self Care
[2021-04-11] MEDS: Ondansetron 4 MG/2 ML Vial IV (16:26)
[2021-04-11] MEDS: 0.9% Normal Saline 1,000 ML 1000 ML IV (16:26)
[2021-04-11] MEDS: Ketorolac 15 MG/ML Vial IV (16:27)
[2021-04-11 17:34] LABS: Mucous, Urine 0 SEEN /hpf (<or=2+); Red Blood Cells-Urine 0 SEEN /hpf (0-5); Squamous Epithelial Cells - UA 0 SEEN /hpf (5-10); White Blood Cells 0 SEEN /hpf (0-5)
[2021-04-11 17:42] LABS: Color, Urine Yellow (Yellow); Glucose, Dipstick Normal (Normal); Ketone-Dipstick 15 mg/dl (Negative); Leukocyte Esterase-Dipstick Negative /ul (Negative); Nitrite-Dipstick Negative (Negative); Occult Blood-Urine Negative /ul (Negative); Protein-Dipstick 15 mg/dl (Negative); Specific Gravity, Urine 1.005 (1.002-1.030); Urine Bilirubin Dipstick Negative (Negative); Urine Clarity Clear (Clear); Urine Urobilinogen Normal (Normal); Urine pH 6.5 (5.0 - 8.0)
[2021-04-11 17:54] LABS: Bacteria RARE /hpf (None Seen)
[2021-04-11] MEDS: HYDROcodone Bitartrate/Apap 5/325 Tablet PO (18:03)
[2021-04-11 19:11] VITALS: BP 145/89; PULSE 67; RESP 16; O2SAT 100
== END 2021-04-11 19:13 | disposition home or self-care (01) ==
PROVIDERS: Emergency Provider Emergency Medicine; PCP Family Medicine
DX: R10.33 Periumbilical pain (principal); R11.2 Nausea with vomiting, unspecified
CPT/HCPCS: 81001; 96361; 96374; 96375; 99284; J7030; J2405

== ENCOUNTER → 2022-02-06 | Outpatient (CLI) | payer OTHER, SELFPAY ==
[2022-02-06 08:16] LABS: Hemoglobin A1c 5.6 % (3.8-5.6)
[2022-02-06 08:27] LABS: Ferritin 50 ng/mL (8-252); Thyroid Stim Hormone (TSH) 3.45 uIU/mL (0.358-3.74)
[2022-02-06 08:38] LABS: Vitamin B12 516 pg/mL (211-911); Vitamin D,25 Hydroxy 18.9 ng/mL
== END | disposition home or self-care (01) ==
PROVIDERS: PCP Family Medicine; Visit Provider Family Medicine
DX: R53.83 Other fatigue (principal)
CPT/HCPCS: 36415; 82306; 82607; 82728; 83036; 84443

== ENCOUNTER → 2023-02-02 | Outpatient (CLI) | payer OTHER, SELFPAY ==
[2023-02-02 09:04] LABS: Absolute Lymphocyte Count 2.54 X10^3/uL (0.83-4.51); Absolute Neutrophil Count 4.7 X10^3/uL (2.0-7.7); Basophil# 0.03 X10^3/uL; Basophil% 0.4 % (0-1); Eosinophil# 0.08 X10^3/uL; Eosinophils% 1.1 % (0-5); Hematocrit 38.8 % (37-47); Lymphocyte # 2.54 X10^3/ul (0.83-4.51); Lymphocyte % 33.4 % (19-41); Mean Corp Hgb Conc 30.9 g/dL (32-36); Mean Corpuscular Hgb 26.8 pg (27.0-32.0); Mean Corpuscular Volume 86.8 fL (81-99); Mean Platelet Vol. 9.8 fl (6.2-12.0); Monocyte# 0.24 X10^3/uL; Monocyte% 3.2 % (0-10); NRBC Flagged by Analyzer 0 % (0-5); Neutrophil # 4.67 X10^3/uL (2.7-7.7); Neutrophil % 61.4 % (47-70); Platelet Count 356 K/mm3 (150-450); RBC Distribution Width CV 13.2 % (11.6-14.6); RBC Distribution Width SD 41.6 fl (35.1-43.9); Red Blood Count 4.47 M/mm3 (4.2-5.4); White Blood Count 7.6 K/mm3 (4.4-11.0)
[2023-02-02 10:08] LABS: Vitamin D,25 Hydroxy 25.9 ng/mL
[2023-02-02 10:12] LABS: ALB/GLOB Ratio 0.8 RATIO (0.9-2.4); AST(SGOT) 14 U/L (15-37); Alanine Aminotransfer ALT/SGPT 25 U/L (13-56); Albumin, Serum 3.4 g/dL (3.2-5.0); Alkaline Phosphatase 98 U/L (45-117); Anion Gap 4 (5-15); BUN 18 mg/dL (7-18); BUN/Creat Ratio 23.9 RATIO (10-20); Calcium,Total 9.1 mg/dL (8.5-10.1); Chloride 106 mmol/L (98-107); Cholesterol 202 mg/dL (200); Creatinine, Serum 0.75 mg/dL (0.55-1.02); EST Glomerular Filtration Rate 86 mL/min (>60); Est Glom Filt Rate - Afr Amer 103 mL/min (>60); Globulin 4.1 g/dL (2.2-4.2); Glucose 101 mg/dL (74-106); High Density Lipoprotein 51 mg/dL; Potassium 4.5 mmol/L (3.5-5.1); Protein, Total 7.5 g/dL (6.4-8.2); Sodium Level 138 mmol/L (136-145); Thyroid Stim Hormone (TSH) 1.76 uIU/mL (0.358-3.74); Triglycerides 80 mg/dL; Very Low Density Lipoprotein 16 mg/dL (5-40)
== END | disposition home or self-care (01) ==
LOC: LAB 08:19
PROVIDERS: PCP Family Medicine; Referring Provider Family Medicine; Visit Provider Family Medicine
DX: Z00.00 Encounter for general adult medical examination without abnormal findings (principal); E78.5 Hyperlipidemia, unspecified; Z13.1 Encounter for screening for diabetes mellitus; E55.9 Vitamin D deficiency, unspecified
CPT/HCPCS: 36415; 80053; 80061; 82306; 84443; 85025

== ENCOUNTER → 2023-03-20 | Outpatient (CLI) | payer OTHER, SELFPAY ==
--- NOTE | 2023-03-20 15:40 | RAD_ITS ---
INDICATION: Right knee pain EXAMINATION/TECHNIQUE: X-RAY - RIGHT XR Knee Complete 4 Views or More COMPARISON: None. FINDINGS: No acute fracture or malalignment. Severe, patellofemoral compartment predominant, tricompartmental joint space narrowing and osteophytosis. Small joint effusion. The soft tissues are unremarkable. RAD/Knee 4 or More Views IMPRESSION: Severe, patellofemoral compartment predominant, tricompartmental degenerative arthrosis of the knee. Small joint effusion. Electronically Signed: Pineda Fontaine MD at 23:22 EDT ,
== END | disposition home or self-care (01) ==
LOC: RAD 15:34
PROVIDERS: PCP Family Medicine; Referring Provider Family Medicine; Visit Provider Family Medicine
DX: M25.561 Pain in right knee (principal)
CPT/HCPCS: 73564

== ENCOUNTER → 2023-04-05 | Outpatient (CLI) | payer OTHER, SELFPAY ==
--- NOTE | 2023-04-05 16:11 | BI_ITS ---
MAMMOGRAPHY - BILATERAL SCREENING REASON FOR EXAM: Female, 52 years old. Routine annual screening examination. PERTINENT HISTORY: Non-contributory. TECHNIQUE: Digital bilateral breast juan [place]go (3D mammographic acquisition) in the CC and MLO projections. 2-D mediolateral oblique (MLO) and craniocaudad (CC) views of both breasts were obtained. CAD: Full Field Digital Mammography with Computer Added Detection was performed. COMPARISON: Comparison is made with prior study dated July 11, 2018 and June 20, 2012. FINDINGS: Breast Composition: There are scattered areas of fibroglandular density. There are no dominant masses or suspicious calcifications. Stable small benign-appearing bilateral axillary lymph nodes. No other significant abnormalities are identified. There has been no significant change since the prior study. BI/SCRN MAMM (CAD)W/JUAN DIEGO BILAT IMPRESSION: Stable bilateral screening mammogram. Yearly follow-up mammogram recommended. (A) ASSESSMENT CATEGORY: BIRADS Category 2: Benign. A letter regarding these results will be sent to the patient by the facility within 30 days. Approximately 10% of breast cancers are not detected by mammography. A normal mammogram should not delay biopsy of a clinically suspicious abnormality. [id number] Electronically Signed: Arslan Carreon MD at 8:42 EST ,
== END | disposition home or self-care (01) ==
LOC: OPBI 16:10
PROVIDERS: PCP Family Medicine; Referring Provider Family Medicine; Visit Provider Family Medicine
DX: Z12.31 Encounter for screening mammogram for malignant neoplasm of breast (principal)
CPT/HCPCS: 77063; 77067

== ENCOUNTER → 2024-05-01 | Outpatient (CLI) | payer OTHER, SELFPAY ==
--- NOTE | 2024-05-01 12:13 | BI_ITS ---
MAMMOGRAPHY - BILATERAL SCREENING REASON FOR EXAM: Female, 53 years old. Routine annual screening examination. PERTINENT HISTORY: Non-contributory. TECHNIQUE: Digital bilateral breast jua ndiego (3D mammographic acquisition) in the CC and MLO projections. 2-D mediolateral oblique (MLO) and craniocaudad (CC) views of both breasts were obtained. CAD: Full Field Digital Mammography with Computer Added Detection was performed. COMPARISON: Comparison is made with prior study dated April 05, 2023 and July 11, 2018. FINDINGS: Breast Composition: There are scattered areas of fibroglandular density. There are no dominant masses or suspicious calcifications. Stable small benign-appearing bilateral axillary lymph nodes. No other significant abnormalities are identified. There has been no significant change since the prior study. BI/SCRN MAMM (CAD)W/JUAN DIEGO BILAT IMPRESSION: Stable bilateral screening mammogram. Yearly follow-up mammogram recommended. (A) ASSESSMENT CATEGORY: BIRADS Category 2: Benign. A letter regarding these results will be sent to the patient by the facility within 30 days. Approximately 10% of breast cancers are not detected by mammography. A normal mammogram should not delay biopsy of a clinically suspicious abnormality. [id number] Electronically Signed: Arslan Carreon MD at 12:44 EST ,
== END | disposition home or self-care (01) ==
LOC: OPBI 12:11
PROVIDERS: PCP Family Medicine; Referring Provider Family Medicine; Visit Provider Family Medicine
DX: Z12.31 Encounter for screening mammogram for malignant neoplasm of breast (principal)
CPT/HCPCS: 77063; 77067

== ENCOUNTER → 2025-02-02 | Outpatient (CLI) | payer OTHER, SELFPAY ==
--- OUTSIDE RECORDS SUMMARY | 2025-02-02 06:52 | XMS RPT_ITS | CCD ---
Author Organization [facility] Care Team Providers Care Chimney Sweeper Name Role Phone Dr. Donta Negrete Primary Care Provider Dr. Donta Negrete Referring Provider PARIS Lopez Attending Provider DO Janine Miranda Referring Provider Dr. Giovanni Interiano Attending Provider MD Alfie Laura Primary Care Provider [phone] Valentín ANDERS, Alfie Primary Care Provider Valentín ANDERS, Alfie Referring Provider [phone] Leland Lopez Attending Provider Valentín, Chalon Primary Care Unavailable Leland Lopez Attending Unavailable Valentín, Chalon Referring Unavailable Assessment, Health Risk Attending Unavaila ble Assessment, Health Risk Referring Unavaila ble Valentín, Chalon Primary Care Unavailable Valentín, Chalon Primary Care Unavailable Migel Merchant Attending Unavailable Valentín, Chalon Referring Unavailable Leland Lopez Attending Unavailable Valentín, Chalon Referring Unavailable Valentín, Chalon Primary Care Unavailable Valentín, Chalon Primary Care Unavailable Migel Merchant Attending Unavailable Valentín, Chalon Referring Unavailable Valentín, Chalon Primary Care Unavailable Valentín, Chalon Attending Unavailable Valentín, Chalon Referring Unavailable Allergies Allergy Classification Reported Allergen(s) Allergy Type Date of Onset Reaction(s) Facility (6 sources) Meperidine Drug Allergy 1 Swelling [facility] (6 sources) Morphine Drug Allergy 1 [facility] (6 sources) oxyCODONE Drug Allergy 1 Nausea/Vom/Diar munir [facility] (6 sources) Promethazine Drug Allergy 1 Swelling [facility] (1 source) Meperidine Drug Allergy 5 [facility] (1 source) Morphine Drug Allergy 5 [facility] (1 source) oxyCODONE Drug Allergy 5 [facility] (1 source) Promethazine Drug Allergy 5 [facility] Medications Current Medications Medication Drug Class(es) Dates Sig (Normalized) Sig (Original) benzonatate 200 mg oral capsule (2 sources) Non-narcotic Antitussive Start: 5 take 1 capsule by mouth three times daily as needed for cough Benzonatate 200 mg capsule Active 200 mg PO THREE TIMES A DAY as needed for cough January 26, 2025 12:00am ergocalciferol 1.25 mg oral capsule (3 sources) Provitamin D2 Compound Start: 3 Ergocalciferol (Vitamin D2) (Vitamin D2) 1,250 mcg (50,000 unit) capsule Active PO April 02, 2023 1:00am escitalopram 10 mg oral tablet (6 sources) Serotonin Reuptake Inhibitor Start: 9 take 1 tablet by mouth once daily Escitalopram Oxalate 10 MG tablet Active 10 mg PO DAILY July 18, 2018 1:00am methylPREDNISolone 4 mg oral tablet (2 sources) Corticosteroid Start: 5 take 1 tablet by mouth once Methylprednisolone (Medrol (Sidney)) 4 mg tablets,dose pack Active 0 PO per package directions 21 January 26, 2025 12:00am PO PER PKG DIR Completed/Discontinued Medications Medication Drug Class(es) Dates Sig (Normalized) Sig (Original) acetaminophen 325 mg / HYDROcodone bitartrate 5 mg oral tablet (12 sources) Opioid Agonist Start: 04-11-2021 End: 04-02-2023 Hydrocodone-Acetami nophen 5-325 mg tablet Discontinued 1 {tbl} PO EVERY 6 HOURS as needed for pain 10 3 0 April 11, 2021 April 02, 2023 3:56pm Abdominal pain Unspecified abdominal pain Start: 04-11-2021 End: 04-02-2023 take 1 tablet by mouth every six hours Hydrocodone-Acetaminophen Discontinued 1 TABLET PO EVERY 6 HOURS 10 3 April 11, 2021 April 02, 2023 2:56pm Start: 07-25-2018 End: 07-29-2018 Hydrocodone-Acetaminophen (N orco 5-325 Tablet) 1 EACH tablet Discontinued 1 NMA PO EVERY 4 HOURS NEEDED as needed for Pain 15 4 0 July 25, 2018 1:00am July 28, 2018 1:00am July 29, 2018 12:10am Other acute postprocedural pain amoxicillin 500 mg oral capsule (12 sources) Penicillin-class Antibacterial Start: 03-27-2019 End: 04-06-2019 take 2 capsules by mouth twice daily Amoxicillin 500 mg capsule Discontinued 1000 mg PO TWICE A DAY 40 10 March 27, 2019 1:00am April 05, 2019 1:00am April 06, 2019 1:08am recommend not starting until 04/01/2019, and only if still symptomatic at that time Start: 03-27-2019 End: 04-06-2019 take 1000 mg by mouth twice daily Amoxicillin Discontinued 1000 MG PO TWICE A DAY 40 March 27, 2019 12:00am April 06, 2019 12:08am recommend not starting until 04/01/2019, and only if still symptomatic at that time Start: 04-17-2018 End: 04-27-2018 take 2 capsules by mouth twice daily Amoxicillin 500 mg capsule Discontinued 1000 mg PO TWICE A DAY 40 10 April 17, 2018 1:00am April 26, 2018 1:00am April 27, 2018 1:16am Start: 04-17-2018 End: 04-27-2018 take 1000 mg by mouth twice daily Amoxicillin Discontinued 1000 MG PO TWICE A DAY 40 April 17, 2018 12:00am April 27, 2018 12:16am amoxicillin 875 mg / clavulanate 125 mg oral tablet (6 sources) Penicillin-class Antibacterial Start: 12-05-2019 End: 12-15-2019 Amoxicillin-Pot Clavulanate (Augmentin) 875-125 mg tablet Discontinued 1 {tbl} PO Q12H 20 10 December 05, 2019 12:00am December 14, 2019 12:00am December 15, 2019 12:02am Acute sinusitis, unspecified cyclobenzaprine hydrochloride 10 mg oral tablet (6 sources) Muscle Relaxant Start: 01-30-2017 End: 04-17-2018 take 1 tablet by mouth three times daily as needed for muscle spasms Cyclobenzaprine 10 MG tablet Discontinued 10 mg PO THREE TIMES A DAY as needed for Muscle Spasm 20 0 January 30, 2017 12:00am April 17, 2018 7:27am dexamethasone 6 mg oral tablet (2 sources) Corticosteroid Start: 06-26-2024 End: 01-26-2025 take 1 tablet by mouth once daily Dexamethasone 6 mg tablet Discontinued 6 mg PO DAILY 7 0 June 26, 2024 1:00am January 26, 2025 7:17am ibuprofen 600 mg oral tablet (6 sources) Nonsteroidal Anti-inflammatory Drug Start: 07-25-2018 End: 08-07-2018 take 1 tablet by mouth every six hours as needed for pain Ibuprofen 600 MG tablet Discontinued 600 mg PO EVERY 6 HOURS NEEDED as needed for Pain 30 0 July 25, 2018 1:00am August 07, 2018 8:30am 24 hr mirabegron 50 mg extended release oral tablet (6 sources) beta3-Adrenergic Agonist Start: 07-03-2018 End: 02-27-2020 take 1 tablet by mouth once daily Mirabegron (Myrbetriq) 50 mg tablet extended release 24 hr Discontinued 50 mg PO DAILY July 03, 2018 1:00am February 27, 2020 1:10pm naproxen 500 mg oral tablet (6 sources) Nonsteroidal Anti-inflammatory Drug Start: 01-30-2017 End: 04-17-2018 take 1 tablet by mouth twice daily Naproxen 500 MG tablet Discontinued 500 mg PO TWICE A DAY January 30, 2017 12:00am April 17, 2018 7:28am ondansetron 4 mg disintegrating oral tablet (6 sources) Serotonin-3 Receptor Antagonist Start: 04-11-2021 End: 04-02-2023 take 1 tablet by mouth every eight hours as needed for nausea and vomiting Ondansetron 4 mg tablet,disintegrati ng Discontinued 4 mg PO Q8H as needed for nausea and vomiting 10 April 11, 2021 1:00am April 02, 2023 3:57pm phentermine hydrochloride 37.5 mg oral capsule (9 sources) Sympathomimetic Amine Anorectic Start: 04-02-2023 End: 08-08-2023 take 1 capsule by mouth once daily 30 minutes after breakfast Phentermine (Adipex-P) 37.5 mg capsule Discontinued 37.5 mg PO DAILY April 02, 2023 1:00am March 20th, 2024 2:03pm must administer 30 minutes before or 1-2 hours after breakfast Start: 09-10-2018 End: 02-27-2020 take 1 tablet by mouth once daily Phentermine (Adipex-P) 37.5 mg tablet Discontinued 37.5 mg PO daily 30 0 September 10, 2018 12:00am February 27, 2020 1:10pm Problems Active Problems Problem Classification Problem Date Documented Da te Episodic/Chronic Abdominal pain (6 sources) Abdominal pain; Translations: [Unspecified abdominal pain] 04-19-2021 Episodic Benign neoplasm of uterus (6 sources) Uterine leiomyoma; Translations: [Leiomyoma of uterus, unspecified] 07-25-2018 Episodic Comment on above: discussed options, b loodwork and US ordered, EMB, plan LAVH BS cysto Genitourinary symptoms and ill-defined conditions (6 sources) Genuine stress incontinence; Translations: [Stress incontinence (female) (male)] 07-04-2019 Chronic Nausea and vomiting (6 sources) Nausea and vomiting; Translations: [Nausea with vomiting, unspecified] 04-19-2021 Episodic Osteoarthritis (3 sources) Unilateral primary osteoarthritis, right knee; Translations: [Osteoarthrosis, unspecified whether generalized or localized, lower leg] 04-02-2023 Chronic Other bone disease and musculoskeletal deformities (20 sources) Segmental and somatic dysfunction; Translations: [Segmental and somatic dysfunction of cervical region] 01-18-2021 Episodic Other female genital disorders (6 sources) Abnormal uterine bleeding; Translations: [Abnormal uterine and vaginal bleeding, unspecified] 07-25-2018 Chronic Comment on above: discussed options, b loodwork and US ordered, EMB, plan LAVH BS cysto Other nutritional; endocrine; and metabolic disorders (6 sources) Body mass index 30+ - obesity; Translations: [Obesity, unspecified] 09-10-2018 Chronic Comment on above: beach body with coac h, adipex, [address], 1m-, 2m- Other upper respiratory infections (6 sources) Sinusitis; Translations: [Chronic sinusitis, unspecified] 03-27-2019 Chronic Other upper respiratory infections (12 sources) Upper respiratory infection; Translations: [Acute upper respiratory infection, unspecified] 03-27-2019 Episodic Otitis media and related conditions (6 sources) Otitis media; Translations: [Otitis media, unspecified, unspecified ear] 07-25-2018 Episodic Residual codes; unclassified (6 sources) Positive measurement finding; Translations: [Positive test for human papillomavirus (HPV)] 07-25-2018 Episodic Residual codes; unclassified (2 sources) History of headache 01-18-2021 Episodic Spondylosis; intervertebral disc disorders; other back problems (6 sources) Neck pain; Translations: [Cervicalgia] 01-18-2021 Episodic Sprains and strains (6 sources) Shoulder strain; Translations: [Strain of unspecified muscle, fascia and tendon at shoulder and upper arm level, right arm, initial encounter] 01-31-2017 Episodic Unclassified (4 sources) History of headache; Translations: [History of frequent headaches] 01-18-2021 Viral infection (2 sources) Disease caused by 2019-nCoV; Translations: [COVID-19] 06-26-2024 Episodic Viral infection (1 source) COVID-19; Translations: [COVID-19] Onset: 06-26-2024 Past or Other Problems Problem Classification Problem Date Documented Da te Episodic/Chronic Other screening for suspected conditions (not mental disorders or infectious disease) (1 source) Encounter for screening mammogram for malignant neoplasm of breast; Translations: [Encounter for screening mammogram for malignant neoplasm of breast] Onset: 06-03-2024 Episodic Unclassified (6 sources) brain tumor removed 12-07-2021 Comment on above: age 2 Results Test Name Value Interpretation Reference Range Facility Urgent Care Visit Reporton 0 01-26-2025 Urgent Care Visit Report [facility] [address], [address] [place] [id number] OFFICE VISIT Date of Service: 01/26/25 MR#: [id number] Acct: [id number] Name: NESSA CUMMINGS Rep #: [id number] : 1970 Provider: PARIS Borden Age/Sex: 54/F Location: [facility] Status: Signed Intake Vital Signs 08/08/23 14:02 01/26/25 07:17 Height 5 ft 4 in 5 ft 4 in Weight: 239 lb BMI 41.0 BP 116/82 H Blood Pressure Location Lt brachial Position Sitting Pulse 104 H Pulse Source Monitor Temp 98.3 F Temp Source Oral Pulse Oximetry (%) 98 Oxygen Delivery Method room air Intake Visit Reasons: SORE THROAT, FEVER, COUGH, ACHES Chief Complaint: Sore Throat, fever, cough Accompanied by: Self Allergies meperidine (From Demerol) Allergy (Verified 01/26/25 07:17) Swelling morphine Allergy (Verified 01/26/25 07:17) Swelling promethazine (From Phenergan) Allergy (Verified 01/26/25 07:17) Swelling oxycodone (From Percocet) Adverse Reaction (Severe, Verified 01/26/25 07:17) Nausea/Vom/Diarrhea Medications ???Medication ???Instructions ???Recorded ???Confirmed ???Type escitalopram oxalate 10 mg tablet 10 mg PO DAILY 07/18/18 01/26/25 History ergocalciferol (vitamin D2) 1,250 PO 04/02/23 01/26/25 History mcg (50,000 unit) capsule (Vitamin D2) benzonatate 200 mg capsule 200 mg PO TID PRN cough #20 caps 0 01/26/25 01/26/25 Rx methylprednisolone 4 mg tablets in See Rx Instructions PO PER PKG D IR 01/26/25 01/26/25 Rx a dose pack (Medrol (Isdney)) #21 tabs Nurse's Note: sore throat, fever, body aches, cough. X 4 days [facility] Medical History History of arm fracture History of frequent headaches History of rheumatic fever Surgical History brain tumor removed delivery delivered H/O tubal ligation History of cholecystectomy S/P laparoscopic assisted vaginal hysterectomy (LAVH) ( 07/25/18) Family History Father CAD (coronary artery disease) PVD (peripheral vascular disease) Bladder cancer Heart disease Mother Colon cancer Cancer uterine Arthritis Other Diabetes Social History Smoking Status: Never smoker alcohol intake: never substance use type: does not use caffeine: Yes what type of physical activity do you participate in: walking seatbelt use: always do you feel safe at home: Yes additional social history: Naty Michelle 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 Patient notes no complaints of chest pain or shortness of breath or dyspnea on exertion. Several close contacts recently dx???d w/ similar URI complaints. No lqlv-[id number] taken to assist. No other associated symptoms and no other alleviating/aggravat ing factors. ROS Const Constitutional: No other (As above) Exam Const General: cooperative, healthy appearing and no acute distress Orientation: alert, awake and oriented x3 HENMT Head: normal to inspection Ears: hearing grossly normal bilaterally, external ears normal, TM's normal bilaterally and EAC's normal Nose: external nose normal, nares normal, septum normal and no nasal discharge Face and sinus: normal facial exam, sinuses nontender and face symmetric Mouth: oral mucosae normal, lip normal, tongue normal and oropharynx normal Throat: posterior oropharynx trace erythema without exudate or hypertrophy, uvula midline and no postnasal drainage Eyes General: appearance normal, both eyes and all related structures Neck Neck: normal visual inspection, full ROM, no lymphadenopathy, no meningeal signs and supple Neck mass: No Thyroid: thyroid normal Lymphatic: no lymphadenopathy noted Chest Chest palpation inspection: normal inspection of the chest Resp Effort Inspection: normal respiratory effort, able to speak in complete sentences and cough Quality of cough: wet (nonproductive in office today) Auscultation: Bilateral: Clear to Auscultation Cardio Palpation: normal PMI Rate: tachycardic Rhythm: regular rhythm Heart Sounds: S1 normal, S2 normal, no gallops, no murmurs and no rubs Pulses: radial pulses present Skin General: no rashes or lesions noted Neuro General: patient alert, patient awake and patient oriented x3 Cognition: normal cognition Speech: speech normal Psych Appearance: grossly normal Mental Status: me (more content not included)... 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 COVID/ [facility] Chief Complaint: ST, fever, JAMA, BA Allergies meperidine (From Demerol) Allergy (Verified 06/26/24 10:14) Swelling morphine Allergy (Verified 06/26/24 10:14) Swelling promethazine (From Phenergan) Allergy (Verified 06/26/24 10:14) Swelling oxycodone (From Percocet) Adverse Reaction (Severe, Verified 06/26/24 10:14) Nausea/Vom/Diarrhea Office Procedures [facility] Billing Sheet Covid Covid Swab-Rapid: Yes Results POC CEPH COV,FluAB,RSV PCR CEPHEID COVID PCR DETECTED Last Edit by Tanisha Centeno on 06/26/24 10:50 CEPHEID FLU AB PCR NOT DETECTED FLU A B Last Edit by Tanisha Centeno on 06/26/24 10:50 CEPHEID RSV PCR NOT DETECTED Last Edit by Tanisha Centeno on 06/26/24 10:50 Assessment and Plan Plan Details Goals Barriers: Goals Decrease spasm Decrease inflammation Reduce pain 11/06/24 0812 Date Migel Joseph Signature: Date (if applicable) CC: Normal [facility] Office Visit Reporton 2024 Office Visit Report [facility] [address] [place] [address] OFFICE VISIT Date of Service: 06/26/24 MR#: [id number] Acct: [id number] Patient: NESSA CUMMINGS Rep #: [id number] : 1970 Provider: PARIS Fernandez Age/Sex: 53/F Location: [facility] Status: Signed Employer Purchased Covid Test Note: Patient here today for Covid Testing, requested by their Employer. Assessment and Plan Assessment and Plan Orders: Orders POC Cepheid Covid, FluAB, RSV Today Plan Details Goals Barriers: Goals Decrease spasm Decrease inflammation Reduce pain 06/26/24 1024 Date Migel TOLEDO Cosigner Signature: Date (if applicable) CC: Normal [facility] Urgent Care Visit Reporton 0 06-26-2024 Urgent Care Visit Report [facility] [address], [address] [place] [address] OFFICE VISIT Date of Service: 06/26/24 MR#: [id number] Acct: [id number] Name: NESSA CUMMINGS Rep #: [id number] : 1970 Provider: PARIS Fernandez Age/Sex: 53/F Location: [facility] Status: Signed Intake Vital Signs 08/08/23 14:02 06/26/24 10:13 Height 5 ft 4 in Weight: 216 lb 4 oz BMI 37.0 BP 130/84 H Blood Pressure Location Lt brachial Position Sitting Respiration 16 Pulse 88 Pulse Source NIBP Temp 99.3 F H Temp Source Oral Pulse Oximetry (%) 98 Oxygen Delivery Method room air Intake Visit Reasons: SORE THROAT, FEVER Chief Complaint: ST, fever, JAMA, 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 denies cough, congestion. concern for URI or sinus infection PFSH Medical History History of arm fracture History of frequent headaches History of rheumatic fever Surgical History brain tumor removed delivery delivered H/O tubal ligation History of cholecystectomy S/P laparoscopic assisted vaginal hysterectomy (LAVH) ( 07/25/18) Family History Father CAD (coronary artery disease) PVD (peripheral vascular disease) Bladder cancer Heart disease Mother Colon cancer Cancer uterine Arthritis Other Diabetes Social History Smoking Status: Never smoker alcohol intake: never substance use type: does not use caffeine: Yes what type of physical activity do you participate in: walking seatbelt use: always do you feel safe at home: Yes additional social history: Naty Michelle 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 Patient reports a fever with a Tmax of 101.5 ???F. No nausea, vomiting or diarrhea. No hemoptysis, shortness of breath or difficulty breathing. No loss of taste or smell. No other associated symptoms or alleviating/aggravat ing factors. ROS Const Constitutional: No other (6 system ROS completed with pertinent findings in the HPI otherwise normal.) Exam Const General: cooperative and well developed HENOK Head: normal to inspection and atraumatic Ears: hearing grossly normal bilaterally Nose: nasal discharge clear Face and sinus: normal facial exam Mouth: oral mucosae normal Throat: abnormal tonsil bilaterally hypertrophy 1+ Resp Effort Inspection: normal respiratory effort and no audible wheezes Auscultation: Bilateral: Clear to Auscultation Cardio Palpation: normal PMI Rate: regular rate Rhythm: regular rhythm Neuro General: patient alert and CN's II-XI intact bilaterally Psych Appearance: grossly normal Mental Status: mental status grossly normal Results POC CEPH COV,FluAB,RSV PCR CEPHEID COVID PCR DETECTED Last Edit by Tanisha Centeno on 06/26/24 10:50 CEPHEID FLU AB PCR NOT DETECTED FLU A B Last Edit by Tanisha Centeno on 06/26/24 10:50 CEPHEID RSV PCR NOT DETECTED Last Edit by Tanisha Centeno on 06/26/24 10:50 Coding Level of Care Code Off vis,new,level 3 Diagnoses COVID-19 U07.1 Assessment and Plan Assessment and Plan (1) COVID-19: Status: Acute Plan: Patient tested positive for COVID in the office today. Decadron as prescribed today. Encouraged to get plenty of rest, drink lots of clear liquids, and use Tylenol or Ibuprofen (unless contraindicated) for fever and comfort. Patient also educated on other symptomatic management techniques. To be seen in 7-10 days if no improvement; sooner if worsening of symptoms. Patient advised of potential red flags and when appropriate to report to the ED. Patient verbalized understanding and agreement with all the above. Orders: Orders POC Cepheid Covid, FluAB, RSV Today Medications: New dexamethasone 6 mg PO DAILY 7 tabs 0RF Plan Details Goals Barriers: Goals Decrease spasm Decrease inflammation Reduce pain Clinical Quality Measures Falls Risk Screening/Assistive Devices Have you fallen in the pas (more content not included)... Normal [facility] SCRN MAMM (CAD)W/JUAN DIEGO BILATo n 05-01-2024 SCRN MAMM (CAD)W/JUAN DIEGO BILAT [facility] Imaging Services [address], [place] [id number] SCRN MAMM (CAD)W/JUAN DIEGO BILAT MR#: [id number] Acct: [id number] Name: NESSA CUMMINGS Rep #: [id number] : 1970 F 53 From: Arslan wyatt MD PCP: Dr. Alfie Laura MD Status: REG CLI Study: SCRN MAMM (CAD)W/JUAN DIEGO BILAT Date of Exam: 04/20 07/14 Exam# [id number] Ordering Dr: Alfie Laura MD [id number] MAMMOGRAPHY - BILATERAL SCREENING REASON FOR EXAM: Female, 53 years old. Routine annual screening examination. PERTINENT HISTORY: Non-contributory. TECHNIQUE: Digital bilateral breast juan diego (3D mammographic acquisition) in the CC and MLO projections. 2-D mediolateral oblique (MLO) and craniocaudad (CC) views of both breasts were obtained. CAD: Full Field Digital Mammography with Computer Added Detection was performed. COMPARISON: Comparison is made with prior study dated April 05, 2023 and July 11, 2018. FINDINGS: Breast Composition: There are scattered areas of fibroglandular density. There are no dominant masses or suspicious calcifications. Stable small benign-appearing bilateral axillary lymph nodes. No other significant abnormalities are identified. There has been no significant change since the prior study. BI/SCRN MAMM (CAD)W/JUAN DIEGO BILAT IMPRESSION: Stable bilateral screening mammogram. Yearly follow-up mammogram recommended. (A) ASSESSMENT CATEGORY: BIRADS Category 2: Benign. A letter regarding these results will be sent to the patient by the facility within 30 days. Approximately 10% of breast cancers are not detected by mammography. A normal mammogram should not delay biopsy of a clinically suspicious abnormality. [id number] Electronically Signed: Arslan Carreon MD at 12:44 EST , CC: Dr. Alfie Laura MD Web Content Director: Signed Normal [facility] 02-25-2024 Absolute Lymph 2.66 X10 3/uL Normal 0.83-4.51 [facility] [facility] Comment on above: Performed By: #### L 100.0200, L500.2900, L400.0100 #### [facility] [address] [place], [address] Absolute Neut 5.4 X10 3/uL Normal 2.0-7.7 [facility] Comment on above: Performed By: #### L 100.0200, L500.2900, L400.0100 #### [facility] [address] [place], [address] Basophils/100 WBC (Bld) 0.2 % Normal 0-1 [facility] Comment on above: Performed By: #### L 100.0200, L500.2900, L400.0100 #### [facility] [address] [place], [address] Eosinophils/100 WBC (Bld) 1.1 % Normal 0-5 [facility] Comment on above: Performed By: #### L 100.0200, L500.2900, L400.0100 #### [facility] [address] [place], [address] Erythrocyte distribution width (RBC) [Ratio] 12.8 % Normal 11.6-14.6 [facility] Comment on above: Performed By: #### L 100.0200, L500.2900, L400.0100 #### [facility] [address] [place], [address] Hematocrit (Bld) [Volume fraction] 40.1 % Normal 37-47 [facility] Comment on above: Performed By: #### L 100.0200, L500.2900, L400.0100 #### [facility] [address] [place], [address] Hemoglobin (Bld) [Mass/Vol] 12.5 g/dL Normal 12.0-15.0 [facility] Comment on above: Performed By: #### L 100.0200, L500.2900, L400.0100 #### [facility] [address] [place], [address] Lymphocytes/100 WBC (Bld) 31.3 % Normal 19-41 [facility] Comment on above: Performed By: #### L 100.0200, L500.2900, L400.0100 #### [facility] [address] [place], [address] MCH (RBC) [Entitic mass] 27.6 pg Normal 27.0-32.0 [facility] Comment on above: Performed By: #### L 100.0200, L500.2900, L400.0100 #### [facility] [address] [place], [address] MCHC (RBC) [Mass/Vol] 31.2 g/dL Low 32-36 [facility] Comment on above: Performed By: #### L 100.0200, L500.2900, L400.0100 #### [facility] [address] [place], [address] MCV (RBC) [Entitic vol] 88.5 fL Normal 81-99 [facility] Comment on above: Performed By: #### L 100.0200, L500.2900, L400.0100 #### [facility] [address] [place], [address] Monocytes/100 WBC (Bld) 3.6 % Normal 0-10 [facility] Comment on above: Performed By: #### L 100.0200, L500.2900, L400.0100 #### [facility] [address] [place], [address] Neutrophils/100 WBC (Bld) 63.4 % Normal 47-70 [facility] Comment on above: Performed By: #### L 100.0200, L500.2900, L400.0100 #### [facility] [address] [place], [address] NRBC # 0.00 10 3/uL Normal 0-5 [facility] Comment on above: Performed By: #### L 100.0200, L500.2900, L400.0100 #### [facility] [address] [place], [address] Nucleated RBC (Bld) [#/Vol] 0 10*3/uL Normal 0-5 [facility] Comment on above: Performed By: #### L 100.0200, L500.2900, L400.0100 #### [facility] [address] [place], [address] Platelet mean volume (Bld) [Entitic vol] 9.7 fL Normal 6.2-12.0 [facility] Comment on above: Performed By: #### L 100.0200, L500.2900, L400.0100 #### [facility] [address] [place], [address] Platelets (Bld) [#/Vol] 327 10*3/uL Normal 150-450 [facility] Comment on above: Performed By: #### L 100.0200, L500.2900, L400.0100 #### [facility] [address] [place], [address] RBC (Bld) [#/Vol] 4.53 10*6/uL Normal 4.2-5.4 [facility] Comment on above: Performed By: #### L 100.0200, L500.2900, L400.0100 #### [facility] [address] [place], [address] RDW SD 41.7 fl Normal 35.1-43.9 [facility] Comment on above: Performed By: #### L 100.0200, L500.2900, L400.0100 #### [facility] [address] [place], [address] WBC (Bld) [#/Vol] 8.5 10*3/uL Normal 4.4-11.0 [facility] Comment on above: Performed By: #### L 100.0200, L500.2900, L400.0100 #### [facility] [address] [place], [address] [employer] 4 Albumin [Mass/Vol] 3.5 g/dL Normal 3.2-5.0 [facility] Comment on above: Performed By: #### L 100.0200, L500.2900, L400.0100 #### [facility] [address] [place], [address] Albumin/Globulin [Mass ratio] 0.9 {ratio} Normal 0.9-2.4 [facility] Comment on above: Performed By: #### L 100.0200, L500.2900, L400.0100 #### [facility] [address] [place], [address] ALK P 95 U/L Normal 45-117 [facility] Comment on above: Performed By: #### L 100.0200, L500.2900, L400.0100 #### [facility] [address] [place], [address] ALT [Catalytic activity/Vol] 17 U/L Normal 13-56 [facility] Comment on above: Performed By: #### L 100.0200, L500.2900, L400.0100 #### [facility] [address] [place], [address] AST [Catalytic activity/Vol] 15 U/L Normal 15-37 [facility] Comment on above: Performed By: #### L 100.0200, L500.2900, L400.0100 #### [facility] [address] [place], [address] Bilirubin [Mass/Vol] 0.70 mg/dL Normal 0.20-1.00 [facility] Comment on above: Result Comment: For patients on eltrombopag therapy, use of Dimension [place] TBIL is not recommended. Performed By: #### L 100.0200, L500.2900, L400.0100 #### [facility] [address] [place], [address] Bilirubin.direct [Mass/Vol] 0.13 mg/dL Normal 0.00-0.30 [facility] Comment on above: Performed By: #### L 100.0200, L500.2900, L400.0100 #### [facility] [address] [place], [address] BUN/CRE 21.3 RATIO High 10-20 [facility] Comment on above: Performed By: #### L 100.0200, L500.2900, L400.0100 #### [facility] [address] [place], [address] CA,Total 9.3 mg/dL Normal 8.5-10.1 [facility] Comment on above: Performed By: #### L 100.0200, L500.2900, L400.0100 #### [facility] [address] [place], [address] Chloride [Moles/Vol] 104 mmol/L Normal 98-107 [facility] Comment on above: Performed By: #### L 100.0200, L500.2900, L400.0100 #### [facility] [address] [place], [address] CHOL:HDL 3.70 Normal [facility] Comment on above: Performed By: #### L 100.0200, L500.2900, L400.0100 #### [facility] [address] [place], [address] Cholesterol [Mass/Vol] 196 mg/dL Normal 200 [facility] Comment on above: Result Comment: <200 mg/dL Desirable 200-240 mg/dL Borderline >240 mg/dL High Risk Performed By: #### L 100.0200, L500.2900, L400.0100 #### [facility] [address] [place], [address] Cholesterol in HDL [Mass/Vol] 53 mg/dL Normal [facility] Comment on above: Result Comment: The drugs N-Acetylcysteine and Metamizole may falsely depress this assay. Reference Range HDL <40 mg/dL Low HDL Cholesterol HDL >or= 60 mg/dL High HDL Cholesterol Performed By: #### L 100.0200, L500.2900, L400.0100 #### [facility] [address] [place], [address] Cholesterol in LDL [Mass/Vol] 119 mg/dL Normal 0-130 [facility] Comment on above: Performed By: #### L 100.0200, L500.2900, L400.0100 #### [facility] [address] [place], [address] Cholesterol in VLDL [Mass/Vol] 24 mg/dL Normal 5-40 [facility] Comment on above: Performed By: #### L 100.0200, L500.2900, L400.0100 #### [facility] [address] [place], [address] CO2 [Moles/Vol] 30.0 mmol/L Normal 21.0-32.0 [facility] Comment on above: Performed By: #### L 100.0200, L500.2900, L400.0100 #### [facility] [address] [place], [address] Creatinine [Mass/Vol] 0.75 mg/dL Normal 0.55-1.02 [facility] Comment on above: Result Comment: The validity of the calculated GFR GFRAA in patients over 70 years has not been determined. Clinical correlation is essential. Performed By: #### L 100.0200, L500.2900, L400.0100 #### [facility] [address] [place], [address] EST GFR - AA 103 mL/min Normal >60 [facility] Comment on above: Result Comment: Afri can [place] GFR Calc Performed By: #### L 100.0200, L500.2900, L400.0100 #### [facility] [address] [place], [address] GAP 6 Normal 5-15 [facility] Comment on above: Performed By: #### L 100.0200, L500.2900, L400.0100 #### [facility] [address] [place], [address] GFR/1.73 sq M.predicted among non-blacks MDRD (S/P/Bld) [Vol rate/Area] 85 mL/min/{1.73_m2} Normal >60 [facility] Comment on above: Result Comment: Non- GFR Calc Performed By: #### L 100.0200, L500.2900, L400.0100 #### [facility] [address] [place], [address] Globulin (S) [Mass/Vol] 3.9 g/dL Normal 2.2-4.2 [facility] Comment on above: Performed By: #### L 100.0200, L500.2900, L400.0100 #### [facility] [address] [place], [address] Glucose [Mass/Vol] 94 mg/dL Normal 74-106 [facility] Comment on above: Performed By: #### L 100.0200, L500.2900, L400.0100 #### [facility] [address] [place], [address] LDH 170 U/L Normal 84-246 [facility] Comment on above: Performed By: #### L 100.0200, L500.2900, L400.0100 #### [facility] [address] [place], [address] Phosphate [Mass/Vol] 3.6 mg/dL Normal 2.5-4.9 [facility] Comment on above: Performed By: #### L 100.0200, L500.2900, L400.0100 #### [facility] [address] [place], [address] Potassium [Moles/Vol] 3.7 mmol/L Normal 3.5-5.1 [facility] Comment on above: Performed By: #### L 100.0200, L500.2900, L400.0100 #### [facility] [address] [place], [address] Sodium [Moles/Vol] 140 mmol/L Normal 136-145 [facility] Comment on above: Performed By: #### L 100.0200, L500.2900, L400.0100 #### [facility] [address] [place], [address] T PROT 7.4 g/dL Normal 6.4-8.2 [facility] Comment on above: Performed By: #### L 100.0200, L500.2900, L400.0100 #### [facility] [address] [place], [address] Triglyceride [Mass/Vol] 120 mg/dL Normal [facility] Comment on above: Result Comment: The drugs N-Acetylcysteine and Metamizole may falsely depress this assay. Serum Triglycerides Reference Interval Normal <150 mg/dL Borderline high 150 - 199 mg/dL High 200 - 499 mg/dL Very High > or = 500 mg/dL Performed By: #### L 100.0200, L500.2900, L400.0100 #### [facility] [address] [place], [address] Urea nitrogen [Mass/Vol] 16 mg/dL Normal 7-18 [facility] Comment on above: Performed By: #### L 100.0200, L500.2900, L400.0100 #### [facility] [address] [place], [address] URIC 4.3 mg/dL Normal 2.6-6.0 [facility] Comment on above: Result Comment: The drugs N-Acetylcysteine and Metamizole may falsely depress this assay. Performed By: #### L 100.0200, L500.2900, L400.0100 #### [facility] [address] [place], [address] Urinalysis, Employeeon 02-24 LEUK ESTERASE Negative Normal Negative [facility] Comment on above: Order Comment: CLEAN CATCH Performed By: #### L 100.0200, L500.2900, L400.0100 #### [facility] [address] [place], [address] BILIRUBIN URINE Negative Normal Negative [facility] Comment on above: Order Comment: CLEAN CATCH Performed By: #### L 100.0200, L500.2900, L400.0100 #### [facility] [address] [place], [address] Clarity (U) Clear Normal Clear [facility] Comment on above: Order Comment: CLEAN CATCH Performed By: #### L 100.0200, L500.2900, L400.0100 #### [facility] [address] [place], [address] Color (U) Yellow Normal Yellow [facility] Comment on above: Order Comment: CLEAN CATCH Performed By: #### L 100.0200, L500.2900, L400.0100 #### [facility] [address] [place], [address] GLUCOSE, UR Normal Normal Normal [facility] Comment on above: Order Comment: CLEAN CATCH Performed By: #### L 100.0200, L500.2900, L400.0100 #### [facility] [address] [place], [address] KETONE UR Negative Normal Negative [facility] Comment on above: Order Comment: CLEAN CATCH Performed By: #### L 100.0200, L500.2900, L400.0100 #### [facility] [address] [place], [address] Nitrite Ql (U) Negative Normal Negative [facility] Comment on above: Order Comment: CLEAN CATCH Performed By: #### L 100.0200, L500.2900, L400.0100 #### [facility] [address] [place], [address] OCCULT BLOOD-UR Negative Normal Negative [facility] Comment on above: Order Comment: CLEAN CATCH Performed By: #### L 100.0200, L500.2900, L400.0100 #### [facility] [address] [place], [address] pH UR 6.0 Normal 5.0 - 8.0 [facility] Comment on above: Order Comment: CLEAN CATCH Performed By: #### L 100.0200, L500.2900, L400.0100 #### [facility] [address] [place], [address] PROT DIPSTX Negative Normal Negative [facility] Comment on above: Order Comment: CLEAN CATCH Performed By: #### L 100.0200, L500.2900, L400.0100 #### [facility] [address] [place], [address] SP.GR. DIPSTX 1.010 Normal 1.002-1.030 [facility] Comment on above: Order Comment: CLEAN CATCH Performed By: #### L 100.0200, L500.2900, L400.0100 #### [facility] [address] [place], [address] UROBILI Normal Normal Normal [facility] Comment on above: Order Comment: CLEAN CATCH Performed By: #### L 100.0200, L500.2900, L400.0100 #### [facility] [address] [place], [address] Absolute lymphocyte countOrd ered By: Janine Miranda on 02-02-2023 Lymphocytes Auto (Unsp spec) [#/Vol] 2.54 10*3/uL 0.83-4.51 [facility] Basophil percentageOrdered B y: Janine Miranda on 02-02-2023 Basophils/100 WBC (Bld) 0.4 % 0-1 [facility] Bilirubin [Mass/Vol] 0.50 mg/dL 0.20-1.00 [facility] Comment on above: For patients on eltr ombopag therapy, use of Dimension [place] TBIL is not recommended. Chloride [Moles/Vol] 106 mmol/L 98-107 [facility] Cholesterol [Mass/Vol] 202 mg/dL <200 [facility] Comment on above: <200 mg/dL Desirable 200-240 mg/dL Borderline >240 mg/dL High Risk Eosinophils/100 WBC (Bld) 1.1 % 0-5 [facility] Glucose [Mass/Vol] 101 mg/dL 74-106 [facility] Comment on above: Fasting Glucose resu lt from 100 to 125 mg/dL suggests IMPAIRED HOMEOSTASIS per A.D.A. criteria. Neutrophils (Bld) [#/Vol] 4.7 10*3/uL 2.0-7.7 [facility] Neutrophils/100 WBC (Bld) 61.4 % 47-70 [facility] Potassium [Moles/Vol] 4.5 mmol/L 3.5-5.1 [facility] Protein [Mass/Vol] 7.5 g/dL 6.4-8.2 [facility] Sodium [Moles/Vol] 138 mmol/L 136-145 [facility] Triglyceride [Mass/Vol] 80 mg/dL <199 [facility] Comment on above: The drugs N-Acetylcy steine and Metamizole may falsely depress this assay.Serum Triglycerides Reference Interval Normal <150 mg/dL Borderline high 150 - 199 mg/dL High 200 - 499 mg/dL Very High > or = 500 mg/dL WBC (Bld) [#/Vol] 7.6 10*3/uL 4.4-11.0 [facility] Blood erythrocytes count (nu mber/volume)Ordered By: Janine Miranda on 02-02-2023 RBC (Bld) [#/Vol] 4.47 10*6/uL 4.2-5.4 [facility] Blood hemoglobin measurement (mass/volume)Ordered By: Janine Miranda on 02-02-2023 Hemoglobin (Bld) [Mass/Vol] 12.0 g/dL 12.0-15.0 [facility] Blood lymphocytes/100 leukoc ytesOrdered By: Janine Miranda on 02-02-2023 Lymphocytes/100 WBC (Bld) 33.4 % 19-41 [facility] Blood monocytes/100 leukocyt esOrdered By: Janine Miranda on 02-02-2023 Monocytes/100 WBC (Bld) 3.2 % 0-10 [facility] Blood platelet mean volumeOr dered By: Janine Miradna on 02-02-2023 Platelet mean volume (Bld) [Entitic vol] 9.8 fL 6.2-12.0 [facility] Determination of erythrocyte mean corpuscular volume (MCV)Ordered By: Janine Miranda on 02-02-2023 MCV (RBC) [Entitic vol] 86.8 fL 81-99 [facility] Hematocrit Auto (Bld) [Volum e fraction]Ordered By: Janine Miranda on 02-02-2023 Hematocrit (Bld) [Volume fraction] 38.8 % 37-47 [facility] - Chemistry and C hemistry - challengeOrdered By: Janine Miranda on 02-02-2023 ALP [Catalytic activity/Vol] 98 U/L 45-117 [facility] ALT [Catalytic activity/Vol] 25 U/L 13-56 [facility] CO2 [Moles/Vol] 28.0 mmol/L 21.0-32.0 [facility] Globulin (S) [Mass/Vol] 4.1 g/dL 2.2-4.2 [facility] Urea nitrogen/Creatinine [Mass ratio] 23.9 mg/mg 10-20 [facility] - Hematology and Cell countsOrdered By: Janine Miranda on 02-02-2023 Erythrocyte distribution width (RBC) [Entitic vol] 41.6 fL 35.1-43.9 [facility] Erythrocyte distribution width (RBC) [Ratio] 13.2 % 11.6-14.6 [facility] Immature granulocytes/100 WBC (Bld) 0.500 % 0.0-0.9 [facility] Comment on above: IG% - Immature Granu locytes (promyelocytes, myelocytes and metamyelocytes) > 1% indicates that a LEFT SHIFT is Present. MCH (RBC) [Entitic mass] 26.8 pg 27.0-32.0 [facility] Nucleated RBC/100 WBC (Bld) [Ratio] 0 % 0-5 [facility] MCHC Auto (RBC) [Mass/Vol]Or dered By: Janine Miranda on 02-02-2023 MCHC (RBC) [Mass/Vol] 30.9 g/dL 32-36 [facility] No Panel InformationOrdered By: Janine Miranda on 02-02-2023 Estimated GFR (MDRD) Amer 103 mL/min >60 [facility] Comment on above: GFR Calc Estimated GFR (MDRD) Non-Af Amer 86 mL/min >60 [facility] Comment on above: Non- GFR Calc Thyroid Stimulating Hormone (TSH) 1.76 uIU/mL 0.358-3.74 [facility] Vitamin D 25-Hydroxy 25.9 ng/mL [facility] Comment on above: Vitamin D 25(OH) Sta tus Range Deficiency <20 ng/mL (50nmol/L) Insufficiency 20 - 30 ng/mL (50 - 75 nmol/L) Sufficiency 30 - 100 ng/mL (75 - 250 nmol/L) Toxicity >100 ng/mL (>250 nmol/L) Platelets bldOrdered By: Kyle Miranda on 02-02-2023 Platelets (Bld) [#/Vol] 356 10*3/uL 150-450 [facility] Serum or plasma albumin crow urement (mass/volume)Ordered By: Janine Miranda on 02-02-2023 Albumin [Mass/Vol] 3.4 g/dL 3.2-5.0 [facility] Serum or plasma albumin/glob ulin mass ratioOrdered By: Janine Miranda on 02-02-2023 Albumin/Globulin [Mass ratio] 0.8 {ratio} 0.9-2.4 [facility] Serum or plasma calcium crow urement (mass/volume)Ordered By: Janine Miranda on 02-02-2023 Calcium [Mass/Vol] 9.1 mg/dL 8.5-10.1 [facility] Serum or plasma cholesterol in HDL measurement (mass/volume)Ordered By: Janine Miranda on 02-02-2023 Cholesterol in HDL [Mass/Vol] 51 mg/dL >40 [facility] Comment on above: The drugs N-Acetylcy steine and Metamizole may falsely depress this assay. Reference Range HDL <40 mg/dL Low HDL Cholesterol HDL >or= 60 mg/dL High HDL Cholesterol Serum or plasma cholesterol in VLDL measurement (mass/volume)Ordered By: Janine Miranda on 02-02-2023 Cholesterol in VLDL [Mass/Vol] 16 mg/dL 5-40 [facility] Serum or plasma creatinine m easurement (mass/volume)Ordered By: Janine Miranda on 02-02-2023 Creatinine [Mass/Vol] 0.75 mg/dL 0.55-1.02 [facility] Comment on above: The validity of the calculated GFR & GFRAA in patients over 70 years has not been determined. Clinical correlation is essential. Serum or plasma low density lipoprotein (LDL) cholesterol measurement (mass/volume)Ordered By: Janine Miranda on 02-02-2023 Cholesterol in LDL [Mass/Vol] 135 mg/dL 0-130 [facility] Serum or plasma urea nitroge n measurement (mass/volume)Ordered By: Janien Miranda on 02-02-2023 Urea nitrogen [Mass/Vol] 18 mg/dL 7-18 [facility] Thin prep Papanicolaou smear with manual screeningOrdered By: Janine Miranda on 02-02-2023 Thin prep Papanicolaou smear with manual screening 14 U/L 15-37 [facility] Thin prep Papanicolaou smear with manual screening 4 5-15 [facility] - Chemistry and C hemistry - challengeon 02-06-2022 Cobalamin (Vitamin B12) [Mass/Vol] 516 pg/mL 211-911 [facility] Work Phone: No Panel Informationon 02-06 Thyroid Stimulating Hormone (TSH) 3.45 uIU/mL 0.358-3.74 [facility] Work Phone: Vitamin D 25-Hydroxy 18.9 ng/mL [facility] Work Phone: Comment on above: Vitamin D 25(OH) Sta tus Range Deficiency <20 ng/mL (50nmol/L) Insufficiency 20 - 30 ng/mL (50 - 75 nmol/L) Sufficiency 30 - 100 ng/mL (75 - 250 nmol/L) Toxicity >100 ng/mL (>250 nmol/L) Serum or plasma ferritin lorena surement (mass/volume)on 02-06-2022 Ferritin [Mass/Vol] 50 ng/mL 8-252 [facility] Work Phone: Whole blood hemoglobin A1c/t otal hemoglobin ratio (mass fraction)on 02-06-2022 HbA1c (Bld) [Mass fraction] 5.6 % 3.8-5.6 [facility] Work Phone: Comment on above: Normal < 5.7 % Predi abetic 5.7 - 6.4 % Diabetic >or= 6.5 % Please note range changes. Absolute lymphocyte counton 01-11-2022 Lymphocytes Auto (Unsp spec) [#/Vol] 2.76 10*3/uL 0.83-4.51 [facility] Work Phone: [phone] Absolute reticulocyte counto n 01-11-2022 Reticulocytes (Bld) [#/Vol] 0.00 10*3/uL 0-5 [facility] Work Phone: [phone] Basophil percentageon 2021 Basophil percentage 3.7 mg/dL 2.5-4.9 [facility] Work Phone: Bilirubin [Mass/Vol] 0.60 mg/dL 0.20-1.00 [facility] Work Phone: [phone] Comment on above: For patients on eltr ombopag therapy, use of Dimension [place] TBIL is not recommended. Chloride [Moles/Vol] 103 mmol/L 98-107 [facility] [facility] Work Phone: Cholesterol [Mass/Vol] 199 mg/dL <200 [facility] Work Phone: Comment on above: <200 mg/dL Desirable 200-240 mg/dL Borderline >240 mg/dL High Risk Glucose [Mass/Vol] 94 mg/dL 74-106 [facility] Work Phone: Neutrophils (Bld) [#/Vol] 5.6 10*3/uL 2.0-7.7 [facility] Work Phone: [phone] Potassium [Moles/Vol] 4.2 mmol/L 3.5-5.1 [facility] Work Phone: Protein [Mass/Vol] 7.8 g/dL 6.4-8.2 [facility] Work Phone: [phone] Sodium [Moles/Vol] 138 mmol/L 136-145 [facility] Work Phone: Triglyceride [Mass/Vol] 81 mg/dL <199 [facility] Work Phone: [phone] Comment on above: The drugs N-Acetylcy steine and Metamizole may falsely depress this assay.Serum Triglycerides Reference Interval Normal <150 mg/dL Borderline high 150 - 199 mg/dL High 200 - 499 mg/dL Very High > or = 500 mg/dL WBC (Bld) [#/Vol] 8.9 10*3/uL 4.4-11.0 [facility] Work Phone: Blood erythrocytes count (nu mber/volume)on 01-11-2022 RBC (Bld) [#/Vol] 4.60 10*6/uL 4.2-5.4 [facility]: Blood hemoglobin measurement (mass/volume)on 01-11-2022 Hemoglobin (Bld) [Mass/Vol] 12.3 g/dL 12.0-15.0 [facility] Work Phone: Blood platelet mean volumeon 01-11-2022 Platelet mean volume (Bld) [Entitic vol] 9.8 fL 6.2-12.0 [facility] Work Phone: Determination of erythrocyte mean corpuscular volume (MCV)on 01-11-2022 MCV (RBC) [Entitic vol] 85.2 fL 81-99 [facility] Work Phone: Direct bilirubinon 2 Bilirubin.direct [Mass/Vol] 0.11 mg/dL 0.00-0.30 [facility] Work Phone: Hematocrit Auto (Bld) [Volum e fraction]on 01-11-2022 Hematocrit (Bld) [Volume fraction] 39.2 % 37-47 [facility] Work Phone: Laboratory - Chemistry and C hemistry - challengeon 01-11-2022 ALP [Catalytic activity/Vol] 96 U/L 45-117 [facility] Work Phone: ALT [Catalytic activity/Vol] 25 U/L 13-56 [facility] Work Phone: Cholesterol.total/Adele sterol in HDL [Mass ratio] 3.60 {ratio} [facility] Work Phone: CO2 [Moles/Vol] 29.0 mmol/L 21.0-32.0 [facility] Work Phone: Globulin (S) [Mass/Vol] 4.4 g/dL 2.2-4.2 [facility] Work Phone: Urea nitrogen/Creatinine [Mass ratio] 17.3 mg/mg 10-20 [facility] Work Phone: Laboratory - Hematology and Cell countson 01-11-2022 Erythrocyte distribution width (RBC) [Entitic vol] 43.2 fL 35.1-43.9 [facility] Work Phone: Erythrocyte distribution width (RBC) [Ratio] 13.9 % 11.6-14.6 [facility] Work Phone: MCH (RBC) [Entitic mass] 26.7 pg 27.0-32.0 [facility] Work Phone: Nucleated RBC/100 WBC (Bld) [Ratio] 0 % 0-5 [facility] Work Phone: MCHC Auto (RBC) [Mass/Vol]on 01-11-2022 MCHC (RBC) [Mass/Vol] 31.4 g/dL 32-36 [facility] Work Phone: No Panel Informationon 01-11 Estimated GFR (MDRD) Amer 104 mL/min >60 [facility] Work Phone: Comment on above: GFR Calc Estimated GFR (MDRD) Non-Af Amer 86 mL/min >60 [facility] Work Phone: Comment on above: Non- GFR Calc Platelets bldon 01-11-2022 Platelets (Bld) [#/Vol] 362 10*3/uL 150-450 [facility] Work Phone: Segmented neutrophils/100 WB C Auto (Bld)on 01-11-2022 Segmented neutrophils/100 WBC (Bld) 63.5 % 47-70 [facility] Work Phone: Serum or plasma albumin crow urement (mass/volume)on 01-11-2022 Albumin [Mass/Vol] 3.4 g/dL 3.2-5.0 [facility] Work Phone: Serum or plasma albumin/glob ulin mass ratioon 01-11-2022 Albumin/Globulin [Mass ratio] 0.8 {ratio} 0.9-2.4 [facility] Work Phone: Serum or plasma calcium crow urement (mass/volume)on 01-11-2022 Calcium [Mass/Vol] 9.1 mg/dL 8.5-10.1 [facility] Work Phone: Serum or plasma cholesterol in HDL measurement (mass/volume)on 01-11-2022 Cholesterol in HDL [Mass/Vol] 55 mg/dL >40 [facility] Work Phone: Comment on above: The drugs N-Acetylcy steine and Metamizole may falsely depress this assay. Reference Range HDL <40 mg/dL Low HDL Cholesterol HDL >or= 60 mg/dL High HDL Cholesterol Serum or plasma cholesterol in VLDL measurement (mass/volume)on 01-11-2022 Cholesterol in VLDL [Mass/Vol] 16 mg/dL 5-40 [facility] Work Phone: Serum or plasma creatinine m easurement (mass/volume)on 01-11-2022 Creatinine [Mass/Vol] 0.75 mg/dL 0.55-1.02 [facility] Work Phone: Comment on above: The validity of the calculated GFR & GFRAA in patients over 70 years has not been determined. Clinical correlation is essential. Serum or plasma low density lipoprotein (LDL) cholesterol measurement (mass/volume)on 01-11-2022 Cholesterol in LDL [Mass/Vol] 128 mg/dL 0-130 [facility] Work Phone: Serum or plasma urea nitroge n measurement (mass/volume)on 01-11-2022 Urea nitrogen [Mass/Vol] 13 mg/dL 7-18 [facility] Work Phone: Serum or plasma uric acid me asurement (mass/volume)on 01-11-2022 Urate [Mass/Vol] 4.7 mg/dL 2.6-6.0 [facility] Work Phone: Comment on above: The drugs N-Acetylcy steine and Metamizole may falsely depress this assay. Thin prep Papanicolaou smear with manual screeningon 01-11-2022 Thin prep Papanicolaou smear with manual screening 17 U/L 15-37 [facility] Work Phone: Thin prep Papanicolaou smear with manual screening 6 5-15 [facility] Work Phone: Thin prep Papanicolaou smear with manual screening 168 U/L 84-246 [facility] Work Phone: Laboratory - Microbiology an d Antimicrobial susceptibilityon 12-08-2021 SARS-CoV-2 (COVID-19) RNA ALENA+probe Ql (Unsp spec) Detected [facility] Work Phone: No Panel Informationon 12-08 POC Nasal Swab Influenza A,B Not detected [facility] Work Phone: POC Nasal Swab RSV Not detected [facility] Work Phone: Vital Signs Date Time Vital Sign Value Performing Clinician Faci lity 01-26-2025 07:17-0400 Body height 162.56 cm Alfie Laura MD Work Phone: [facility] 01-26-2025 07:17-0400 Body mass index (BMI) [Ratio] 41 kg/m2 Alfie Laura MD Work Phone: [facility] 01-26-2025 07:17-0400 Body temperature 98.3 [degF] Alfie Laura MD Work Phone: [facility] 01-26-2025 07:17-0400 Body weight 108.4 kg Alfie Laura MD Work Phone: [facility] 01-26-2025 07:17-0400 Diastolic blood pressure 82 mm[Hg] Alfie Laura MD Work Phone: [facility] 01-26-2025 07:17-0400 Heart rate 104 /min Alfie Laura MD Work Phone: [facility] 01-26-2025 07:17-0400 SaO2% (BldA) [Mass fraction] 98 % Alfie Laura MD Work Phone: [facility] 01-26-2025 07:17-0400 Systolic blood pressure 116 mm[Hg] Alfie Laura MD Work Phone: [facility] 04-02-2023 14:54-0500 Body height 162.56 cm DO Janine Miranda Work Phone: [facility] 04-02-2023 14:54-0500 Body mass index (BMI) [Ratio] 41.3 kg/m2 DO Janine Miranda Work Phone: [facility] 04-02-2023 14:54-0500 Body weight 109.37 kg DO Janine Miranda Work Phone: [facility] Encounters Encounter Date Encounter Type Care Provider Facility Start: 01-26-2025 End: 01-26-2025 Patient encounter procedure [facility]alante [facility] Work Phone: Start: 01-26-2025 End: 01-26-2025 ambulatory Alfie Laura MD [facility] Start: 01-26-2025 End: 01-26-2025 Patient encounter procedure Leland TOLEDO [facility] Work Phone: Start: 01-26-2025 End: 01-26-2025 ambulatory Alfie Laura MD Work Phone: [facility] Start: 06-26-2024 End: 06-26-2024 ambulatory Alfie Laura Facility[place] Start: 05-01-2024 End: 05-01-2024 ambulatory Chalon Valentín Facility:[facility] Start: 02-25-2024 ambulatory Health Risk Assessment Facility:[facility] Start: 04-05-2023 End: 04-05-2023 ambulatory DO Janine Miranda Work Phone: [facility] Work Phone: Start: 04-05-2023 End: 04-05-2023 Patient encounter procedure DO Janine Carnger Work Phone: [facility]-Outpatient Breast Imaging Work Phone: Start: 04-02-2023 End: 04-02-2023 Patient encounter procedure DO Janine Carnger Work Phone: [facility] Work Phone: Start: 03-20-2023 End: 03-20-2023 ambulatory [facility] Work Phone: Start: 03-20-2023 End: 03-20-2023 Patient encounter procedure [facility]iology, [facility] Work Phone: Start: 02-02-2023 End: 02-02-2023 ambulatory [facility] Work Phone: Start: 02-02-2023 End: 02-02-2023 Patient encounter procedure [facility]-Laboratory Work Phone: Start: 02-06-2022 End: 02-06-[address] Donta Negrete Work Phone: [facility] Work Phone: Start: 02-06-2022 End: 02-06-[address] Donta Negrete Work Phone: [facility]Laboratory Start: 01-11-[address] Donta prakash Work Phone: [facility] Start: 12-08-2021 End: 12-08-[address] Donta Negrete Work Phone: [facility] Start: 12-07-[address] Donta prakash Work Phone: [facility] Procedures Date Procedure Procedure Detail Performing Clinician Start: 04-05-2023 Screening mammography D O Janine Miranda Work Phone: Start: 03-20-2023 Radiologic examinati on of knee Viral antigen assay Dr. Donta Negrete Work Phone: Plan of Treatment Date Care Activity Detail Author [facility] Immunizations Immunization Date Immunization Notes Care Provider Stephanie wells 03-06-2024 influenza, seasonal, injectable, preservative free Alfie Laura MD Work Phone: [facility] 03-08-2023 Covid (Spikevax) [facility] 02-15-2023 influenza, injectabl e, quadrivalent, preservative free [facility] 03-08-2022 influenza, injectabl e, quadrivalent, preservative free [facility] 12-02-2021 Covid (Pfizer) Dr. Donta moreira Work Phone: [facility] 03-15-2021 Covid (Moderna) Dr. Donta portillo Work Phone: [facility] 02-23-2021 influenza, injectabl e, quadrivalent, preservative free [facility] 02-23-2021 influenza, seasonal, injectable Dr. Donta Negrete Work Phone: [facility] Work Phone: 06-16-2020 Covid (Moderna) Dr. Donta portillo Work Phone: [facility] 05-19-2020 Covid (Moderna) Dr. Donta portillo Work Phone: [facility] 03-08-2020 influenza, injectabl e, quadrivalent, preservative free [facility] 03-08-2020 influenza, seasonal, injectable Dr. Donta Negrete Work Phone: [facility] Work Phone: 02-13-2019 influenza, injectabl e, quadrivalent, preservative free [facility] 02-13-2019 influenza, seasonal, injectable Dr. Donta Negrete Work Phone: [facility] Work Phone: 02-15-2018 influenza, injectabl e, quadrivalent, preservative free [facility] 02-15-2018 influenza, seasonal, injectable Dr. Donta Negrete Work Phone: [facility] Work Phone: 03-05-2017 influenza, injectabl e, quadrivalent, preservative free [facility] 03-05-2017 influenza, seasonal, injectable Dr. Donta Negrete Work Phone: [facility] Work Phone: 02-17-2016 influenza, injectabl e, quadrivalent, preservative free [facility] 02-17-2016 influenza, seasonal, injectable Dr. Donta Negrete Work Phone: [facility] Work Phone: 03-18-2015 influenza, injectabl e, quadrivalent, preservative free [facility] 03-18-2015 influenza, seasonal, injectable Dr. Donta Negrete Work Phone: [facility] Work Phone: 02-04-2014 influenza, injectabl e, quadrivalent, preservative free [facility] 02-04-2014 influenza, seasonal, injectable Dr. Donta Negrete Work Phone: [facility] Work Phone: 12-01-2013 hepatitis B vaccine, pediatric or pediatric/adolescent dosage Dr. Donta Negrete Work Phone: [facility] 07-01-2013 hepatitis B vaccine, pediatric or pediatric/adolescent dosage Dr. Donta Negrete Work Phone: [facility] Payers Date Payer Category Payer Unknown [id number] 2024 Self-pay [id number] Unknown [id number] [id number] Unknown [id number] [id number] [id number] Unknown [id number] [id number] [id number] Unknown [id number] 2.16.8 [id number] Unknown [id number] 2.16.8 [id number] Unknown [id number] 2.16.8 [id number] Unknown [id number] 2.16.8 [id number] Social History Date Type Detail Facility Start: 04-11-2021 End: 04-02-2023 Tobacco smoking status NHIS Unknown if ever smoked [facility] Start: 03-26-2020 Non-smoker [facility] Start: 1970 Sex Assigned At Female [facility] Start: 08-08-2023 Tobacco smoking stat us NHIS Never smoked tobacco (finding) [facility] Goals Date Patient Goal Desired Activity /State Chief complaint+Reason for visit Narrative Note Date & Type Note Facility Chief complaint+Reason for v isit Narrative [facility] Work Phone: Evaluation note Note Date & Type Note Facility Evaluation note No assessment information availa ble [facility] Work Phone: Evaluation note Note Date & Type Note Facility Evaluation note Diagnosis Onset Date Osteoarthritis of right knee noneactive [facility] Work Phone: Reason for referral (narrative) Note Date & Type Note Facility Reason for referral (narrative) No reason for referral information available [facility] Work Phone: Family History No Family History Records Found Relationship Condition Age at Onset Recorded Date/T tomasa Not Specified Diabetes mellitus Unknown father Coronary artery disease Unknown Peripheral vascular disease Unknown Malignant neoplasm of urinary bladder Unk nown Cardiac disease Unknown mother Malignant neoplasm of colon Unknown Malignant neoplasm Unknown Arthritis Unknown Advance Directives No Advanced Directives Records Found Advance Directive Response Recorded Date/ Time Living Will No April 11 4:28pm Power of Director Investor Relations No April 11, 2021 4:28pm Advance Directive Response Recorded Date/ Time Living Will No April 11 3:28pm Power of Director Investor Relations No April 11, 2021 3:28pm Chief Complaint and Reason for Visit Chief Complaint RIGHT KNEE PAIN Chief Complaint RIGHT KNEE PAIN RIGHT KNEE SCREENING Reason for Visit Osteoarthritis of ri ght knee Chief Complaint Admit Date SORE THROAT, FEVER, COUGH, ACHES Septemb er 2024 7:13am Chief Complaint Admit Date SORE THROAT, FEVER, COUGH, ACHES Septemb er 2024 7:13am 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 Pato Rodriguez MD Family Provider Active Janine Miranda DO Primary Care Provider Active Team Status: Inactive Member Role Status Dates Janine Miranda DO Primary Care Provider Active Alfie Laura MD Attending Provider, Referring Provide r Active Team Status: Active Member Role Status Dates Dr. Pato Rodriguez MD Family Provider Active Alfie Laura MD Primary Care Provider Active Team Status: Inactive Member Role Status Dates Janine Miranda DO Referring Provider Active Dr. Giovanni Interiano DO Attending Provider Active Alfie Laura MD Primary Care Provider Active Team Status: Inactive Member Role Status Dates Alfie Laura MD Primary Care Provide r, Attending Provider, Referring Provider Active Team Status: Active Member Role/Relationship Status Dates Dr. Pato Rodriguez MD Family Provider Active Alfie Laura MD Primary Care Provider Active Team Status: Inactive Member Role/Relationship Status Dates Alfie Laura MD Primary Care Provider Active St art: January 26, 2025 End: January 26, 2025 Alfie Laura MD Referring Provider Active Start : January 26, 2025 End: January 26, 2025 Leland Escalante PA, PA Attending Provider Active Start: January 26, 2025 End: January 26, 2025 Team Status: Inactive Member Role/Relationship Status Dates Alfie Laura MD Primary Care Provider Active St art: January 26, 2025 End: January 26, 2025 Alfie Laura MD Referring Provider Active Start : January 26, 2025 End: January 26, 2025 Leland TOLEDO PA Attending Provider Active Start: January 26, 2025 End: January 26, 2025 INFORMATION SOURCE (unrecogn ized section and content) DATE CREATED AUTHOR 01/27/2025 [facility] FOR RECORDS PERTAINING TO PATIENTS WHO ARE OR HAVE BEEN ENROLLED IN A CHEMICAL DEPENDENCY/SUBSTANCEABUSE PROGRAM, SOME INFORMATION MAY BE OMITTED. This clinical summary was aggregated from multiple sources. Caution should be exercised in using it in the provision of clinical care. This summary normalizes information from multiple sources, and as a consequence, information in this document may materially change the coding, format and clinical context of patient data. In addition, data may be omitted in some cases. CLINICAL DECISIONS SHOULD BE BASED ON THE PRIMARY CLINICAL RECORDS. [employer] provides no warranty or guarantee of the accuracy or completeness of information in this document.
[2025-02-02 08:16] LABS: Follicle Stimulating Hormone 53.9 mIU/mL
[2025-02-03 04:07] LABS: PROGESTERONE 0.3 ng/mL (.)
[2025-02-04 14:08] LABS: Estrogen, Total, Serum 67 pg/mL (40-244)
== END | disposition home or self-care (01) ==
LOC: LAB 06:43
PROVIDERS: PCP Family Medicine; Referring Provider Family Medicine; Visit Provider Family Medicine
DX: R23.2 Flushing (principal)
CPT/HCPCS: 36415; 82672; 83001; 83002; 84144

== ENCOUNTER → 2025-05-20 | Outpatient (CLI) | payer OTHER, SELFPAY ==
--- OUTSIDE RECORDS SUMMARY | 2025-05-20 07:46 | XMS RPT_ITS | CCD ---
Author Organization [facility] Inform ion Partnership 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 Donta Negrete Primary Care Provider Dr. Donta Negrete Referring Provider PARIS Lopez Attending Provider DO Janine Miranda Referring Provider Dr. Giovanni Interiano Attending Provider [phone] MD Alfie Laura Primary Care Provider Alfie Laura MD Primary Care Provider [phone] Alfie Laura MD Referring Provider Leland Lopez Attending Provider Valentín ANDERS, Alfie Primary Care Physician Leland Lopez Attending Physician Alfie Laura MD Attending Physician [phone] Assessment, Health Risk Attending Physician Unav ailable Assessment, Health Risk Referring Provider Unava ilable Valentín, Chalon Referring Unavailable Valentín, Chalon Primary Care Unavailable Valentín, Chalon Attending Unavailable Assessment, Health Risk Referring Unavaila ble Valentín, Chalon Primary Care Unavailable Assessment, Health Risk Attending Unavaila ble Assessment, Health Risk Attending Unavaila ble Assessment, Health Risk Referring Unavaila ble Valentín, Chalon Primary Care Unavailable Valentín, Chalon Referring Unavailable Leland Lopez Attending Unavailable Valentín, Chalon Primary Care Unavailable Valentín, Chalon Referring Unavailable Valentín, Chalon Primary Care Unavailable Migel Merchant Attending Unavailable Valentín, Chalon Referring Unavailable Leland Lopez Attending Unavailable Valentín, Chalon Primary Care Unavailable Valentín, Chalon Referring Unavailable Alfie Laura Primary Care Unavailable Migel Merchant Attending Unavailable Alfie Laura Referring Unavailable Alfie Laura Primary Care Unavailable Alfie Laura Attending Unavailable Allergies Allergy Classification Reported Allergen(s) Allergy Type Date of Onset Reaction(s) Facility (7 sources) Meperidine Drug Allergy 1 [facility] (7 sources) Morphine Drug Allergy 1 [facility] (7 sources) oxyCODONE Drug Allergy 1 Nausea/Vom/Diar munir [facility] (7 sources) Promethazine Drug Allergy 1 [facility] (1 source) Meperidine Drug Allergy 5 [facility] (1 source) Morphine Drug Allergy 5 [facility] (1 source) oxyCODONE Drug Allergy 5 [facility] (1 source) Promethazine Drug Allergy 5 [facility] Medications Current Medications Medication Drug Class(es) Dates Sig (Normalized) Sig (Original) benzonatate 200 mg oral capsule (3 sources) Non-narcotic Antitussive Start: 01-26-2025 take 1 capsule by mouth three times daily as needed for cough ergocalciferol 1.25 mg oral capsule (4 sources) Provitamin D2 Compound Start: 04-02-2023 escitalopram 10 mg oral tablet (7 sources) Serotonin Reuptake Inhibitor Start: 07-18-2018 take 1 tablet by mouth once daily methylPREDNISolone 4 mg oral tablet (3 sources) Corticosteroid Start: 01-26-2025 take 1 tablet by mouth once Completed/Discontinued Medications Medication Drug Class(es) Dates Sig (Normalized) Sig (Original) acetaminophen 325 mg / HYDROcodone bitartrate 5 mg oral tablet (14 sources) Opioid Agonist Start: 04-11-2021 End: 04-02-2023 Hydrocodone-Acetami nophen 5-325 mg tablet Discontinued 1 {tbl} PO EVERY 6 HOURS as needed for pain 10 3 April 11, 2021 April 02, 2023 3:56pm [...] postprocedural pain amoxicillin 500 mg oral capsule (14 sources) Penicillin-class Antibacterial Start: 03-27-2019 End: 04-06-2019 [...] mg / clavulanate 125 mg oral tablet (7 sources) Penicillin-class Antibacterial Start: 12-05-2019 End: 12-15-2019 Amoxicillin-Pot Clavulanate (Augmentin) 875-125 mg tablet Discontinued 1 {tbl} PO Q12H 20 10 December 05, 2019 12:00am December 14, 2019 12:00am December 15, 2019 12:02am Acute sinusitis, unspecified cyclobenzaprine hydrochloride 10 mg oral tablet (7 sources) Muscle Relaxant Start: 01-30-2017 End: 04-17-2018 take 1 tablet by mouth three times daily as needed for muscle spasms Cyclobenzaprine 10 MG tablet Discontinued 10 mg PO THREE TIMES A DAY as needed for Muscle Spasm 20 January 30, 2017 12:00am April 17, 2018 7:27am dexamethasone 6 mg oral tablet (3 sources) Corticosteroid Start: 06-26-2024 End: 01-26-2025 take 1 tablet by mouth once daily Dexamethasone 6 mg tablet Discontinued 6 mg PO DAILY 7 June 26, 2024 1:00am January 26, 2025 7:17am ibuprofen 600 mg oral tablet (7 sources) Nonsteroidal Anti-inflammatory Drug Start: 07-25-2018 End: 08-07-2018 take 1 tablet by mouth every six hours as needed for pain Ibuprofen 600 MG tablet Discontinued 600 mg PO EVERY 6 HOURS NEEDED as needed for Pain 30 July 25, 2018 1:00am August 07, 2018 8:30am 24 hr mirabegron 50 mg extended release oral tablet (7 sources) beta3-Adrenergic Agonist Start: 07-03-2018 End: 02-27-2020 take 1 tablet by mouth once daily Mirabegron (Myrbetriq) 50 mg tablet extended release 24 hr Discontinued 50 mg PO DAILY July 03, 2018 1:00am February 27, 2020 1:10pm naproxen 500 mg oral tablet (7 sources) Nonsteroidal Anti-inflammatory Drug Start: 01-30-2017 End: 04-17-2018 take 1 tablet by mouth twice daily Naproxen 500 MG tablet Discontinued 500 mg PO TWICE A DAY January 30, 2017 12:00am April 17, 2018 7:28am ondansetron 4 mg disintegrating oral tablet (7 sources) Serotonin-3 Receptor Antagonist Start: 04-11-2021 End: 04-02-2023 take 1 tablet by mouth every eight hours as needed for nausea and vomiting Ondansetron 4 mg tablet,disintegrati ng Discontinued 4 mg PO Q8H as needed for nausea and vomiting 10 April 11, 2021 1:00am April 02, 2023 3:57pm phentermine hydrochloride 37.5 mg oral capsule (11 sources) Sympathomimetic Amine Anorectic Start: 04-02-2023 End: 08-08-2023 take 1 capsule by mouth once daily 30 minutes after breakfast Phentermine (Adipex-P) 37.5 mg capsule Discontinued 37.5 mg PO DAILY April 02, 2023 1:00am August 08, 2023 2:03pm must administer 30 minutes before or 1-2 hours after breakfast Start: 09-10-2018 End: 02-27-2020 take 1 tablet by mouth once daily Phentermine (Adipex-P) 37.5 mg tablet Discontinued 37.5 mg PO daily 30 0 September 10, 2018 12:00am February 27, 2020 1:10pm Problems Active Problems Problem Classification Problem Date Documented Da te Episodic/Chronic Abdominal pain (7 sources) Abdominal pain; Translations: [Unspecified abdominal pain] 04-19-2021 Episodic Benign neoplasm of uterus (7 sources) Uterine leiomyoma; Translations: [Leiomyoma of uterus, unspecified] 07-25-2018 Episodic Comment on above: discussed options, b loodwork and US ordered, EMB, plan LAVH BS cysto Genitourinary symptoms and ill-defined conditions (7 sources) Genuine stress incontinence; Translations: [Stress incontinence (female) (male)] 07-04-2019 Chronic Nausea and vomiting (7 sources) Nausea and vomiting; Translations: [Nausea with vomiting, unspecified] 04-19-2021 Episodic Osteoarthritis (4 sources) Unilateral primary osteoarthritis, right knee; Translations: [Osteoarthrosis, unspecified whether generalized or localized, lower leg] 04-02-2023 Chronic Other bone disease and musculoskeletal deformities (20 sources) Segmental and somatic dysfunction; Translations: [Segmental and somatic dysfunction of cervical region] 01-18-2021 Episodic Other female genital disorders (7 sources) Abnormal uterine bleeding; Translations: [Abnormal uterine and vaginal bleeding, unspecified] 07-25-2018 Chronic Comment on above: discussed options, b loodwork and US ordered, EMB, plan LAVH BS cysto Other nutritional; endocrine; and metabolic disorders (7 sources) Body mass index 30+ - obesity; Translations: [Obesity, unspecified] 09-10-2018 Chronic Comment on above: beach body with coac h, adipex, [address], 1m-, 2m- Other upper respiratory infections (7 sources) Sinusitis; Translations: [Chronic sinusitis, unspecified] 03-27-2019 Chronic Other upper respiratory infections (14 sources) Upper respiratory infection; Translations: [Acute upper respiratory infection, unspecified] 03-27-2019 Episodic Otitis media and related conditions (7 sources) Otitis media; Translations: [Otitis media, unspecified, unspecified ear] 07-25-2018 Episodic Residual codes; unclassified (7 sources) Positive measurement finding; Translations: [Positive test for human papillomavirus (HPV)] 07-25-2018 Episodic Residual codes; unclassified (3 sources) History of headache 01-18-2021 Episodic Residual codes; unclassified (1 source) Flushing; Translations: [Flushing] Onset: 02-13-2025 Episodic Spondylosis; intervertebral disc disorders; other back problems (7 sources) Neck pain; Translations: [Cervicalgia] 01-18-2021 Episodic Sprains and strains (7 sources) Shoulder strain; Translations: [Strain of unspecified muscle, fascia and tendon at shoulder and upper arm level, right arm, initial encounter] 01-31-2017 Episodic Unclassified (4 sources) History of headache; Translations: [History of frequent headaches] 01-18-2021 Viral infection (3 sources) Disease caused by 2019-nCoV; Translations: [COVID-19] [...] neoplasm of breast] Onset: 06-03-2024 Episodic Unclassified (7 sources) brain tumor removed 12-07-2021 Comment on above: age 2 Results Test Name Value Interpretation Reference Range Facility Estrogen, Total, Serumon ESTROGENS,TOTAL 67 pg/mL Normal 40-244 [facility] Comment on above: Order Comment: Order Date: 11/20/24 Order Info: 2254-1 - EST N Result Comment: Prep ubertal < 40 Female Cycle: 1-10 Days 16 - 328 11-20 Days 34 - 501 21-30 Days 48 - 350 Post-Menopausal 40 - 244 Performed at: [facility] [address] [id number] Trust Manager: Alie Perez MD, Phone: [phone] Performed By: #### L 6989.5508, [id number] #### [facility] [address] [place], [address] Office Visit Reporton 2024 Office Visit Report [facility] [address] [place] [address] OFFICE VISIT Date of Service: 01/26/25 MR#: [id number] Acct: [id number] Patient: NESSA CUMMINGS Rep #: [id number] : 1970 Provider: PARIS Borden Age/Sex: 54/F Location: [facility] Status: Signed Intake Vital Signs 01/26/25 07:17 Height 5 ft 4 in Weight: 239 lb BMI 41.0 BP 116/82 H Blood Pressure Location Lt brachial Position Sitting Pulse 104 H Pulse Source Monitor Temp 98.3 F Temp Source Oral Pulse Oximetry (%) 98 Oxygen Delivery Method room air 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 COVID/ [facility] Chief Complaint: Sore Throat, fever, cough Allergies meperidine (From Demerol) Allergy (Verified 01/26/25 07:17) Swelling morphine Allergy (Verified 01/26/25 07:17) Swelling promethazine (From Phenergan) Allergy (Verified 01/26/25 07:17) Swelling oxycodone (From Percocet) Adverse Reaction (Severe, Verified 01/26/25 07:17) Nausea/Vom/Diarrhea Office Procedures [facility] Billing Sheet Covid Covid Swab-Rapid: Yes Results POC Sherif Rapid Strep POC Sherif Rapid Strep Negative Last Edit by Ayb Pinedo MA on 01/26/25 07:39 POC SHERIF Covid FluAB PCR POC Sherif Covid PCR Cancelled Last Edit by Michelle Worrell MA on 01/26/25 07:54 POC Sherif Covid PCR previously reported as Not Detected Michelle Worrell 01/26/25 07:54 POC SHERIF FLU Cancelled Last Edit by Michelle Worrell MA on 01/26/25 07:54 POC SHERIF FLU previously reported as NOT DETECTED FLU A B Michelle Worrell 01/26/25 07:54 CANCELLED wrong test POC CEPH COV,FluAB,RSV PCR CEPHEID COVID PCR DETECTED Last Edit by Aby Pinedo MA on 01/26/25 08:37 CEPHEID FLU AB PCR NOT DETECTED FLU A B Last Edit by Aby Pinedo MA on 01/26/25 08:37 CEPHEID RSV PCR NOT DETECTED Last Edit by Aby Pinedo MA on 01/26/25 08:38 CEPHEID RSV PCR previously reported as DETECTED Aby Pinedo 01/26/25 08:38 Assessment and Plan Plan Details Goals Barriers: Goals Decrease spasm Decrease inflammation Reduce pain 02/03/25 1527 Date Leland Joseph Signature: Date (if applicable) CC: Normal [facility] PROGESTERONE 4317on 02-04-20 PROGESTERONE 0.3 ng/mL Normal . [facility] Comment on above: Order Comment: N Result Comment: Foll icular phase 0.1 - 0.9 Luteal phase 1.8 - 23.9 Ovulation phase 0.1 - 12.0 First trimester 11.0 - 44.3 Second trimester 25.4 - 83.3 Third trimester 58.7 - 214.0 Postmenopausal 0.0 - 0.1 Performed at: [facility] [address] [id number] Trust Manager: Alan Coates PhD, Phone: [phone] Performed By: #### L 492.2623 #### [facility] [address] [place], [address] Absolute lymphocyte countOrd ered By: HEALTH ASSESSMENT on 02-02-2025 Lymphocytes Auto (Unsp spec) [#/Vol] 3.40 10*3/uL 0.83-4.51 [facility] Absolute neutrophil countOrd ered By: HEALTH ASSESSMENT on 02-02-2025 Neutrophils (Bld) [#/Vol] 6.2 10*3/uL 2.0-7.7 [facility] Absolute nucleated red blood cell countOrdered By: HEALTH ASSESSMENT on 02-02-2025 Nucleated RBC (Bld) [#/Vol] 0.00 10*3/uL 0-5 [facility] Anion gap in Serum or Plasma Ordered By: HEALTH ASSESSMENT on 02-02-2025 Anion gap [Moles/Vol] 9 mmol/L 5- [facility] BUN/creatinine ratioOrdered By: HEALTH ASSESSMENT on 02-02-2025 Urea nitrogen/Creatinine [Mass ratio] 17.3 mg/mg 10-20 [facility] Bilirubin Test strip Ql (U)O rdered By: HEALTH ASSESSMENT on 02-02-2025 Bilirubin Ql (U) Negative Negative [facility] Bilirubin directOrdered By: HEALTH ASSESSMENT on 02-02-2025 Bilirubin.direct [Mass/Vol] 0.20 mg/dL 0.00-0.30 [facility] Bilirubin, totalOrdered By: HEALTH ASSESSMENT on 02-02-2025 Bilirubin [Mass/Vol] 0.54 mg/dL 0.00-1.30 [facility] Blood band neutrophil count as percentage of total leukocytesOrdered By: HEALTH ASSESSMENT on 02-02-2025 Band form neutrophils/100 WBC (Bld) 60.7 % 47-70 [facility] CBC, Employeeon 02-02-2025 Absolute Lymph 3.40 X10 3/uL Normal 0.83-4.51 [facility] Comment on above: Performed By: #### L 100.0200, L400.0100, L500.2900 #### [facility] [address] [place], [address] Absolute Neut 6.2 X10 3/uL Normal 2.0-7.7 [facility] Comment on above: Performed By: #### L 100.0200, L400.0100, L500.2900 #### [facility] [address] [place], [address] Basophils/100 WBC (Bld) 0.3 % Normal 0-1 [facility] Comment on above: Performed By: #### L 100.0200, L400.0100, L500.2900 #### [facility] [address] [place], [address] Eosinophils/100 WBC (Bld) 1.7 % Normal 0-5 [facility] Comment on above: Performed By: #### L 100.0200, L400.0100, L500.2900 #### [facility] [address] [place], [address] Erythrocyte distribution width (RBC) [Ratio] 13.2 % Normal 11.6-14.6 [facility] Comment on above: Performed By: #### L 100.0200, L400.0100, L500.2900 #### [facility] [address] [place], [address] Hematocrit (Bld) [Volume fraction] 38.4 % Normal 37-47 [facility] Comment on above: Performed By: #### L 100.0200, L400.0100, L500.2900 #### [facility] [address] [place], [address] Hemoglobin (Bld) [Mass/Vol] 12.7 g/dL Normal 12.0-15.0 [facility] Comment on above: Performed By: #### L 100.0200, L400.0100, L500.2900 #### [facility] [address] [place], [address] Lymphocytes/100 WBC (Bld) 33.3 % Normal 19-41 [facility] Comment on above: Performed By: #### L 100.0200, L400.0100, L500.2900 #### [facility] [address] [place], [address] MCH (RBC) [Entitic mass] 28.1 pg Normal 27.0-32.0 [facility] Comment on above: Performed By: #### L 100.0200, L400.0100, L500.2900 #### [facility] [address] [place], [address] MCHC (RBC) [Mass/Vol] 33.1 g/dL Normal 32-36 [facility] Comment on above: Performed By: #### L 100.0200, L400.0100, L500.2900 #### [facility] [address] [place], [address] MCV (RBC) [Entitic vol] 85.0 fL Normal 81-99 [facility] Comment on above: Performed By: #### L 100.0200, L400.0100, L500.2900 #### [facility] [address] [place], [address] Monocytes/100 WBC (Bld) 3.7 % Normal 0-10 [facility] Comment on above: Performed By: #### L 100.0200, L400.0100, L500.2900 #### [facility] [address] [place], [address] Neutrophils/100 WBC (Bld) 60.7 % Normal 47-70 [facility] Comment on above: Performed By: #### L 100.0200, L400.0100, L500.2900 #### [facility] [address] [place], [address] NRBC # 0.00 10 3/uL Normal 0-5 [facility] Comment on above: Performed By: #### L 100.0200, L400.0100, L500.2900 #### [facility] [address] [place], [address] Nucleated RBC (Bld) [#/Vol] 0 10*3/uL Normal 0-5 [facility] Comment on above: Performed By: #### L 100.0200, L400.0100, L500.2900 #### [facility] [address] [place], [address] Platelet mean volume (Bld) [Entitic vol] 9.5 fL Normal 6.2-12.0 [facility] Comment on above: Performed By: #### L 100.0200, L400.0100, L500.2900 #### [facility] [address] [place], [address] Platelets (Bld) [#/Vol] 333 10*3/uL Normal 150-450 [facility] Comment on above: Performed By: #### L 100.0200, L400.0100, L500.2900 #### [facility] [address] [place], [address] RBC (Bld) [#/Vol] 4.52 10*6/uL Normal 4.2-5.4 [facility] Comment on above: Performed By: #### L 100.0200, L400.0100, L500.2900 #### [facility] [address] [place], [address] RDW SD 40.7 fl Normal 35.1-43.9 [facility] Comment on above: Performed By: #### L 100.0200, L400.0100, L500.2900 #### [facility] [address] [place], [address] WBC (Bld) [#/Vol] 10.2 10*3/uL Normal 4.4-11.0 [facility] Comment on above: Performed By: #### L 100.0200, L400.0100, L500.2900 #### [facility] [address] [place], [address] Calculated very low density lipoprotein (VLDL) cholesterol measurementOrdered By: HEALTH ASSESSMENT on 02-02-2025 Calculated very low density lipoprotein (VLDL) cholesterol measurement 25 mg/dL 5-40 [facility] Carbon dioxide, total [Moles /volume] in Central venous bloodOrdered By: HEALTH ASSESSMENT on 02-02-2025 CO2 [Moles/Vol] 27.9 mmol/L 21.0-32.0 [facility] Chloride assayOrdered By: HE ALTH ASSESSMENT on 02-02-2025 Chloride [Moles/Vol] 103 mmol/L 98-108 [facility] Employee Profileon LDH 193 U/L Normal 84-246 [facility] Comment on above: Performed By: #### L 100.0200, L400.0100, L500.2900 #### [facility] [address] [place], [address] Phosphate [Mass/Vol] 3.3 mg/dL Normal 2.7-4.5 [facility] Comment on above: Performed By: #### L 100.0200, L400.0100, L500.2900 #### [facility] [address] [place], [address] URIC 5.3 mg/dL Normal 2.6-6.0 [facility] Comment on above: Result Comment: The drugs N-Acetylcysteine and Metamizole may falsely depress this assay. Performed By: #### L 100.0200, L400.0100, L500.2900 #### [facility] [address] [place], [address] Erythrocyte distribution wid th ratioOrdered By: HEALTH ASSESSMENT on 02-02-2025 Erythrocyte distribution width (RBC) [Ratio] 13.2 % 11.6-14.6 [facility] Erythrocyte distribution wid th standard deviationOrdered By: HEALTH ASSESSMENT on 02-02-2025 Erythrocyte distribution width (RBC) [Ratio] 40.7 fl 35.1-43.9 [facility] FSH and LHon 02-02-2025 FSH 53.9 mIU/mL Normal [facility] Comment on above: Order Comment: Order Date: 11/20/24 Order Info: [id number] - FSHLH Result Comment: FEMA LE: Follicular: 1.4 - 18.1 mIU/mL Midcycle: 3.4 - 33.4 mIU/mL Luteal: 1.5 - 9.1 mIU/mL Post Menopause: 23.0 - 116.3 mIU/mL MALE: 1.4 - 18.1 mIU/mL Performed By: #### L 3400.0200, L3100.5055 #### [facility] [address] [place], [place], [address] LH 31.2 mIU/mL Normal [facility] Comment on above: Order Comment: Order Date: 11/20/24 Order Info: [id number] - FSHLH Result Comment: FEMA LE: Follicular: 1.9-12.5 mIU/mL Midcycle: 8.7-76.3 mIU/mL Luteal: 0.5-16.9 mIU/mL Post Menopause: 15.9-54.0 mIU/mL MALE: 20-70 Years: 1.5-9.3 mIU/mL >70 Years: 3.1-34.6 mIU/mL Performed By: #### L 3400.0200, L3100.5055 #### [facility] [address] [place], [place], [address] Glomerular filtration rate ( GFR) estimation/1.73 sq m using serum, plasma, or whole bOrdered By: HEALTH ASSESSMENT on 02-02-2025 GFR/1.73 sq M.predicted among non-blacks MDRD (S/P/Bld) [Vol rate/Area] 99 mL/min/{1.73_m2} >60 [facility] Comment on above: mL/min/1.73m2 CKD-EP I Creatinine Equation (2020) Hematocrit Auto (Bld) [Volum e fraction]Ordered By: HEALTH ASSESSMENT on 02-02-2025 Hematocrit (Bld) [Volume fraction] 38.4 % 37-47 [facility] Hemoglobin measurementOrdere d By: HEALTH ASSESSMENT on 02-02-2025 Hemoglobin (Bld) [Mass/Vol] 12.7 g/dL 12.0-15.0 [facility] Ketones Test strip Ql (U)Ord ered By: HEALTH ASSESSMENT on 02-02-2025 Ketones Ql (U) Negative Negative [facility] LDL calc ser/plasOrdered By: HEALTH ASSESSMENT on 02-02-2025 Cholesterol in LDL [Mass/Vol] 110 mg/dL [facility] Comment on above: Pvoqkqbzyv=556-262 m g/dL & Higher Gtvs=349 mg/dL or greaterFriedwald Equation for LDL-C LH ser/plasOrdered By: Javier Laura on 02-02-2025 Lutropin Qn 31.2 m[IU]/mL [facility] Comment on above: FEMALE:Follicular: 1 .9-12.5 mIU/mLMidcycle: 8.7-76.3 mIU/mLLuteal: 0.5-16.9 mIU/mLPost Menopause: 15.9-54.0 mIU/mLMALE:20-70 Years: 1.5-9.3 mIU/mL>70 Years: 3.1-34.6 mIU/mL Laboratory - Chemistry and C hemistry - challengeOrdered By: HEALTH ASSESSMENT on 02-02-2025 AST [Catalytic activity/Vol] 19 U/L <32 [facility] Lactate dehydrogenase (LDH) measurementOrdered By: HEALTH ASSESSMENT on 02-02-2025 LDH [Catalytic activity/Vol] 193 U/L 84-246 [facility] MCV (mean corpuscular volume ) determinationOrdered By: HEALTH ASSESSMENT on 02-02-2025 MCV (RBC) [Entitic vol] 85.0 fL 81-99 [facility] Mean corpuscular hemoglobin (MCH) determinationOrdered By: HEALTH ASSESSMENT on 02-02-2025 MCH (RBC) [Entitic mass] 28.1 pg 27.0-32.0 [facility] Mean corpuscular hemoglobin concentration (MCHC) determinationOrdered By: HEALTH ASSESSMENT on 02-02-2025 MCHC (RBC) [Mass/Vol] 33.1 g/dL 32-36 [facility] Mean platelet volume determi nationOrdered By: HEALTH ASSESSMENT on 02-02-2025 Platelet mean volume (Bld) [Entitic vol] 9.5 fL 6.2-12.0 [facility] Nitrite Test strip Ql (U)Ord ered By: HEALTH ASSESSMENT on 02-02-2025 Nitrite Ql (U) Negative Negative [facility] Nucleated red blood cell per centageOrdered By: HEALTH ASSESSMENT on 02-02-2025 Nucleated RBC/100 WBC (Bld) [Ratio] 0 % 0-5 [facility] Platelet countOrdered By: HE ALTH ASSESSMENT on 02-02-2025 Platelets (Bld) [#/Vol] 333 10*3/uL 150-450 [facility] Potassium measurement (mass/ volume)Ordered By: HEALTH ASSESSMENT on 02-02-2025 Potassium (Unsp spec) [Mass/Vol] 4.0 mmol/L 3.3-5.1 [facility] Protein Test strip Ql (U)Ord ered By: HEALTH ASSESSMENT on 02-02-2025 Protein Ql (U) 30 mg/dl High Negative [facility] RBC Auto (Bld) [#/Vol]Ordere d By: HEALTH ASSESSMENT on 02-02-2025 RBC (Bld) [#/Vol] 4.52 10*6/uL 4.2-5.4 [facility] Screening total cholesterol/ high density lipoprotein (HDL) cholesterol ratioOrdered By: HEALTH ASSESSMENT on 02-02-2025 Cholesterol.total/Cholest kati in HDL [Mass ratio] 4.29 {ratio} [facility] Serum creatinine measurement (mass/volume)Ordered By: HEALTH ASSESSMENT on 02-02-2025 Creatinine [Mass/Vol] 0.72 mg/dL 0.70-1.20 [facility] Serum globulin measurementOr dered By: HEALTH ASSESSMENT on 02-02-2025 Globulin (S) [Mass/Vol] 3.0 g/dL 2.2-4.2 [facility] Serum glucose measurement (m ass/volume)Ordered By: HEALTH ASSESSMENT on 02-02-2025 Glucose [Mass/Vol] 102 mg/dL High 70-[address] [facility] Serum or plasma alanine gagnon otransferase (ALT) measurementOrdered By: HEALTH ASSESSMENT on 02-02-2025 ALT [Catalytic activity/Vol] 19 U/L <35 [facility] Serum or plasma albumin crow urement (mass/volume)Ordered By: HEALTH ASSESSMENT on 02-02-2025 Albumin [Mass/Vol] 3.9 g/dL 3.5-5.[address] [facility] Serum or plasma albumin/glob ulin mass ratioOrdered By: HEALTH ASSESSMENT on 02-02-2025 Albumin/Globulin [Mass ratio] 1.3 {ratio} 0.9-2.4 [facility] Serum or plasma alkaline sulema sphatase measurementOrdered By: HEALTH ASSESSMENT on 02-02-2025 ALP [Catalytic activity/Vol] 95 U/L 35-104 [facility] Serum or plasma calcium crow urement (mass/volume)Ordered By: HEALTH ASSESSMENT on 02-02-2025 Calcium [Mass/Vol] 9.4 mg/dL 7.6-11.[address] [facility] Serum or plasma cholesterol in HDL measurement (mass/volume)Ordered By: HEALTH ASSESSMENT on 02-02-2025 Cholesterol in HDL [Mass/Vol] 41 mg/dL >40 [facility] Comment on above: National Cholesterol Education Program (NCEP) guidelines:<40 mg/dL: Low HDL-cholesterol (major risk factor for CHD)>= 60 mg/dL: High HDL-cholesterol (negative risk factor for CHD)HDL-cholesterol is affected by a number of factors, e.g. smoking, exercise, hormones, sex and age. Serum or plasma cholesterol measurement (mass/volume)Ordered By: HEALTH ASSESSMENT on 02-02-2025 Cholesterol [Mass/Vol] 176 mg/dL <201 [facility] Comment on above: Cholesterol level, D esirable <200 mg/dLBorderline high cholesterol 200-239 mg/dLHigh cholesterol >=240 mg/dLRecommendations of the NCEP Adult Treatment Panel for the following risk-cutoff thresholds for the [place] population. Serum or plasma estrogen lorena surement (mass/volume)Ordered By: Alfie Laura on 02-02-2025 Estrogen [Mass/Vol] 67 pg/mL 40-244 [facility] Comment on above: Prepubertal < 40 Fem christian Cycle: 1-10 Days 16 - 328 11-20 Days 34 - 501 21-30 Days 48 - 350 Post-Menopausal 40 - 244Performed at: [facility] Lab[address] [id number] Director: Alie Perez MD, Phone: [phone] Serum or plasma urea nitroge n measurement (mass/volume)Ordered By: HEALTH ASSESSMENT on 02-02-2025 Urea nitrogen [Mass/Vol] 12 mg/dL 4-19 [facility] Serum or plasma uric acid me asurement (mass/volume)Ordered By: HEALTH ASSESSMENT on 02-02-2025 Urate [Mass/Vol] 5.3 mg/dL 2.6-6.0 [facility] Comment on above: The drugs N-Acetylcy steine and Metamizole may falsely depress this assay. Sodium levelOrdered By: HEAL ASSESSMENT on 02-02-2025 Sodium [Moles/Vol] 140 mmol/L 133-[address] [facility] Total proteinOrdered By: A [facility] ASSESSMENT on 02-02-2025 Protein [Mass/Vol] 6.9 g/dL 5.9-8.[address] [facility] Triglycerides measurementOrd ered By: HEALTH ASSESSMENT on 02-02-2025 Triglyceride [Mass/Vol] 123 mg/dL <199 [facility] Comment on above: The drugs N-Acetylcy steine and Metamizole may falsely depress this assay. Normal range: <150 mg/dLBorderline High: 150-199 mg/dLHigh: 200-499 mg/dLVery High: >500 mg/dL Urinalysis, Employeeon 02-02 BILIRUBIN URINE Negative Normal Negative [facility] Comment on above: Order Comment: Urine , Random Performed By: #### L 100.0200, L400.0100, L500.2900 #### [facility] [address] [place], [address] Clarity (U) Clear Normal Clear [facility] Comment on above: Order Comment: Urine , Random Performed By: #### L 100.0200, L400.0100, L500.2900 #### [facility] [address] [place], [address] Color (U) Yellow Normal Yellow [facility] Comment on above: Order Comment: Urine , Random Performed By: #### L 100.0200, L400.0100, L500.2900 #### [facility] [address] [place], [address] GLUCOSE, UR Normal Normal Normal [facility] Comment on above: Order Comment: Urine , Random Performed By: #### L 100.0200, L400.0100, L500.2900 #### [facility] [address] [place], [address] KETONE UR Negative Normal Negative [facility] Comment on above: Order Comment: Urine , Random Performed By: #### L 100.0200, L400.0100, L500.2900 #### [facility] [address] [place], [address] LEUK ESTERASE 25 /ul Abnormal Negative [facility] Comment on above: Order Comment: Urine , Random Performed By: #### L 100.0200, L400.0100, L500.2900 #### [facility] [address] [place], [address] Nitrite Ql (U) Negative Normal Negative [facility] Comment on above: Order Comment: Urine , Random Performed By: #### L 100.0200, L400.0100, L500.2900 #### [facility] [address] [place], [address] OCCULT BLOOD-UR Negative Normal Negative [facility] Comment on above: Order Comment: Urine , Random Performed By: #### L 100.0200, L400.0100, L500.2900 #### [facility] [address] [place], [address] pH UR 6.0 Normal 5.0 - 8.0 [facility] Comment on above: Order Comment: Urine , Random Performed By: #### L 100.0200, L400.0100, L500.2900 #### [facility] [address] [place], [address] PROT DIPSTX 30 mg/dl Abnormal Negative [facility] Comment on above: Order Comment: Urine , Random Performed By: #### L 100.0200, L400.0100, L500.2900 #### [facility] [address] [place], [address] SP.GR. DIPSTX 1.015 Normal 1.002-1.030 [facility] Comment on above: Order Comment: Urine , Random Performed By: #### L 100.0200, L400.0100, L500.2900 #### [facility] [address] [place], [address] UROBILI Normal Normal Normal [facility] Comment on above: Order Comment: Urine , Random Performed By: #### L 100.0200, L400.0100, L500.2900 #### [facility] [address] [place], [address] Urine clarityOrdered By: Nazanin [facility] ASSESSMENT on 02-02-2025 Clarity (U) Clear Clear [facility] Urine color determinationOrd ered By: HEALTH ASSESSMENT on 02-02-2025 Color (U) Yellow Yellow [facility] Urine glucose detectionOrder ed By: HEALTH ASSESSMENT on 02-02-2025 Glucose Ql (U) Normal mg/dl Normal [facility] Urine leukocyte esterase det ection by dipstickOrdered By: HEALTH ASSESSMENT on 02-02-2025 Leukocyte esterase Test strip Ql (U) 25 /ul High Negative [facility] Urine pHOrdered By: HEALTH A SSESSMENT on 02-02-2025 pH (U) 6.0 [pH] 5.0 - 8.0 [facility] Urine specific gravity measu rementOrdered By: HEALTH ASSESSMENT on 02-02-2025 Specific gravity (U) [Rel density] 1.015 1.002-1.030 [facility] Urine urobilinogen measureme ntOrdered By: HEALTH ASSESSMENT on 02-02-2025 Urobilinogen Ql (U) Normal mg/dl Normal [facility] White blood cell (WBC) count Ordered By: HEALTH ASSESSMENT on 02-02-2025 WBC (Bld) [#/Vol] 10.2 10*3/uL 4.4-11.0 [facility] - Microbiology an d Antimicrobial susceptibilityOrdered By: Leland Escalante on 01-26-2025 SARS-CoV-2 (COVID-19) RNA ALENA+probe Ql (Unsp spec) Detected [facility] No Panel InformationOrdered By: Leland Escalante on 01-26-2025 POC Nasal Swab Influenza A,B Not detected [facility] POC Nasal Swab RSV Not detected [facility] Comment on above: CEPHEID RSV PCR prev iously reported as DETECTED Rapid group A Streptococcus antigen assay at point of careOrdered By: Leland Escalante on 01-26-2025 S. pyogenes Ag IA.rapid Ql (Throat) Negative [facility] Urgent Care Visit Reporton 0 01-26-2025 Urgent Care Visit Report [facility] [address] [place] [address] OFFICE VISIT Date of Service: 01/26/25 MR#: [id number] Acct: [id number] Name: NESSA CUMMINGS Rep #: [id number] : 1970 Provider: PARIS Borden Age/Sex: 54/F Location: [facility] Status: Signed Intake Vital Signs 08/08/23 14:02 [...] 01/26/25 01/26/25 Rx a dose pack (Medrol (Sidney)) #21 tabs Nurse's Note: sore throat, fever, body aches, cough. 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 No xpju-tom-wapswkt taken to assist. No other associated symptoms [...] Status: me (more content not included)... 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 Assessment and Plan Assessment and Plan Orders: Orders POC Cepheid Covid, FluAB, RSV Today Plan Details Goals Barriers: Goals Decrease spasm Decrease inflammation Reduce pain 06/26/24 1024 Date Migel TOLEDO Cosignazeb Signature: Date (if applicable) CC: Normal [facility] Urgent Care Visit Reporton 0 06-26-2024 Urgent Care Visit Report [facility] [address] [place] [address] OFFICE VISIT Date of Service: 06/26/24 MR#: [id number] Acct: [id number] Name: NESSA CUMMINGS Rep #: [id number] : 1970 Provider: PARIS Fernandez Age/Sex: 53/F Location: [facility] Status: Signed Intake Vital Signs 08/08/23 14:02 [...] FEVER Chief Complaint: ST, fever, JAMA, BA 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 Normal [facility] SCRN MAMM (CAD)W/JUAN DIEGO BILATo n 05-01-2024 SCRN MAMM (CAD)W/JUAN DIEGO BILAT [facility] Imaging Services [address] [place], [place] [id number] SCRN MAMM (CAD)W/JUAN DIEGO BILAT MR#: [id number] Acct: [id number] Name: NESSA CUMMINGS Rep #: [id number] : 1970 F 53 From: Arslan wyatt MD PCP: Dr. Alfie Laura MD Status: [facility] Study: SCRN MAMM (CAD)W/JUAN DIEGO BILAT Date of Exam: 04/20 07/14 Exam# [id number] Ordering Dr: Alfie Laura MD [id number] MAMMOGRAPHY - BILATERAL SCREENING REASON FOR EXAM: [...] delay biopsy of a clinically suspicious abnormality. [id number] Electronically Signed: Arslan Carreon MD at 12:44 EST Reading Location ID and State: [address] [place] [address] , Service support , CC: Dr. Alfie Laura MD Vp Human Resources: Signed Normal [facility] CBC, Employeeon 02-25-2024 Absolute Lymph 2.66 X10 3/uL Normal 0.83-4.51 [facility] Comment on above: Performed By: #### L 100.0200, L500.2900, L400.0100 ####[facility] [address] [place], [address] Absolute Neut 5.4 X10 3/uL Normal 2.0-7.7 [facility] Comment on above: Performed By: #### L 100.0200, L500.2900, L400.0100 ####[facility] [address] [place], [address] Basophils/100 WBC (Bld) 0.2 % Normal 0-1 [facility] Comment on above: Performed By: #### L 100.0200, L500.2900, L400.0100 ####[facility] [address] [place], [address] Eosinophils/100 WBC (Bld) 1.1 % Normal 0-5 [facility] Comment on above: Performed By: #### L 100.0200, L500.2900, L400.0100 ####[facility] [address] [place], [address] Erythrocyte distribution width (RBC) [Ratio] 12.8 % Normal 11.6-14.6 [facility] Comment on above: Performed By: #### L 100.0200, L500.2900, L400.0100 ####[facility] [address] [place], [address] Hematocrit (Bld) [Volume fraction] 40.1 % Normal 37-47 [facility] Comment on above: Performed By: #### L 100.0200, L500.2900, L400.0100 ####[facility] [address] [place], [address] Hemoglobin (Bld) [Mass/Vol] 12.5 g/dL Normal 12.0-15.0 [facility] Comment on above: Performed By: #### L 100.0200, L500.2900, L400.0100 ####[facility] [address] [place], [address] Lymphocytes/100 WBC (Bld) 31.3 % Normal 19-41 [facility] Comment on above: Performed By: #### L 100.0200, L500.2900, L400.0100 ####[facility] [address] [place], [address] MCH (RBC) [Entitic mass] 27.6 pg Normal 27.0-32.0 [facility] Comment on above: Performed By: #### L 100.0200, L500.2900, L400.0100 ####[facility] [address] [place], [address] MCHC (RBC) [Mass/Vol] 31.2 g/dL Low 32-36 [facility] Comment on above: Performed By: #### L 100.0200, L500.2900, L400.0100 ####[facility] [address] [place], [address] MCV (RBC) [Entitic vol] 88.5 fL Normal 81-99 [facility] Comment on above: Performed By: #### L 100.0200, L500.2900, L400.0100 ####[facility] [address] [place], [address] Monocytes/100 WBC (Bld) 3.6 % Normal 0-10 [facility] Comment on above: Performed By: #### L 100.0200, L500.2900, L400.0100 ####[facility] [address] [place], [address] Neutrophils/100 WBC (Bld) 63.4 % Normal 47-70 [facility] Comment on above: Performed By: #### L 100.0200, L500.2900, L400.0100 ####[facility] [address] [place], [address] NRBC # 0.00 10 3/uL Normal 0-5 [facility] Comment on above: Performed By: #### L 100.0200, L500.2900, L400.0100 ####[facility] [address] [place], [address] Nucleated RBC (Bld) [#/Vol] 0 10*3/uL Normal 0-5 [facility] Comment on above: Performed By: #### L 100.0200, L500.2900, L400.0100 ####[facility] [address] [place], [address] Platelet mean volume (Bld) [Entitic vol] 9.7 fL Normal 6.2-12.0 [facility] Comment on above: Performed By: #### L 100.0200, L500.2900, L400.0100 ####[facility] [address] [place], [address] Platelets (Bld) [#/Vol] 327 10*3/uL Normal 150-450 [facility] Comment on above: Performed By: #### L 100.0200, L500.2900, L400.0100 ####[facility] [address] [place], [address] RBC (Bld) [#/Vol] 4.53 10*6/uL Normal 4.2-5.4 [facility] Comment on above: Performed By: #### L 100.0200, L500.2900, L400.0100 ####[facility] [address] [place], [address] RDW SD 41.7 fl Normal 35.1-43.9 [facility] Comment on above: Performed By: #### L 100.0200, L500.2900, L400.0100 ####[facility] [address] [place], [address] WBC (Bld) [#/Vol] 8.5 10*3/uL Normal 4.4-11.[address] [facility] Comment on above: Performed By: #### L 100.0200, L500.2900, L400.0100 ####[facility] [address] [place], [address] Employee Profileon 4 Albumin [Mass/Vol] 3.5 g/dL Normal 3.2-5.[address] [facility] Comment on above: Performed By: #### L 100.0200, L500.2900, L400.0100 ####[facility] [address] [place], [address] Albumin/Globulin [Mass ratio] 0.9 {ratio} Normal 0.9-2.4 [facility] Comment on above: Performed By: #### L 100.0200, L500.2900, L400.0100 ####[facility] [address] [place], [address] ALK P 95 U/L Normal 45-117 [facility] Comment on above: Performed By: #### L 100.0200, L500.2900, L400.0100 ####[facility] [address] [place], [address] ALT [Catalytic activity/Vol] 17 U/L Normal 13-56 [facility] Comment on above: Performed By: #### L 100.0200, L500.2900, L400.0100 ####[facility] [address] [place], [address] AST [Catalytic activity/Vol] 15 U/L Normal 15-37 [facility] Comment on above: Performed By: #### L 100.0200, L500.2900, L400.0100 ####[facility] [address] [place], [address] Bilirubin [Mass/Vol] 0.70 mg/dL Normal 0.20-1.00 [facility] Comment on above: Result Comment: For patients on eltrombopag therapy, use of Dimension Sayre TBIL is not recommended. Performed By: #### L 100.0200, L500.2900, L400.0100 ####[facility] [address] [place], [address] Bilirubin.direct [Mass/Vol] 0.13 mg/dL Normal 0.00-0.30 [facility] Comment on above: Performed By: #### L 100.0200, L500.2900, L400.0100 ####[facility] [address] [place], [address] BUN/CRE 21.3 RATIO High 10-20 [facility] Comment on above: Performed By: #### L 100.0200, L500.2900, L400.0100 ####[facility] [address] [place], [address] CA,Total 9.3 mg/dL Normal 8.5-10.1 [facility] Comment on above: Performed By: #### L 100.0200, L500.2900, L400.0100 ####[facility] [address] [place], [address] Chloride [Moles/Vol] 104 mmol/L Normal 98-107 [facility] Comment on above: Performed By: #### L 100.0200, L500.2900, L400.0100 ####[facility] [address] [place], [address] CHOL:HDL 3.70 Normal [facility] Comment on above: Performed By: #### L 100.0200, L500.2900, L400.0100 ####[facility] [address] [place], [address] Cholesterol [Mass/Vol] 196 mg/dL Normal 200 [facility] Comment on above: Result Comment: <200 mg/dL Desirable 200-240 mg/dL Borderline >240 mg/dL High Risk Performed By: #### L 100.0200, L500.2900, L400.0100 ####[facility] [address] [place], [address] Cholesterol in HDL [Mass/Vol] 53 mg/dL Normal [facility] Comment on above: Result Comment: The drugs N-Acetylcysteine and Metamizole may falsely depress this assay. Reference Range HDL <40 mg/dL Low HDL Cholesterol HDL >or= 60 mg/dL High HDL Cholesterol Performed By: #### L 100.0200, L500.2900, L400.0100 ####[facility] [address] [place], [address] Cholesterol in LDL [Mass/Vol] 119 mg/dL Normal 0-130 [facility] Comment on above: Performed By: #### L 100.0200, L500.2900, L400.0100 ####[facility] [address] [place], [address] Cholesterol in VLDL [Mass/Vol] 24 mg/dL Normal 5-40 [facility] Comment on above: Performed By: #### L 100.0200, L500.2900, L400.0100 ####[facility] [address] [place], [address] CO2 [Moles/Vol] 30.0 mmol/L Normal 21.0-32.0 [facility] Comment on above: Performed By: #### L 100.0200, L500.2900, L400.0100 ####[facility] [address] [place], [address] Creatinine [Mass/Vol] 0.75 mg/dL Normal 0.55-1.02 [facility] Comment on above: Result Comment: The validity of the calculated GFR GFRAA in patients over 70 years has not been determined. Clinical correlation is essential. Performed By: #### L 100.0200, L500.2900, L400.0100 ####[facility] [address] [place], [address] EST GFR - AA 103 mL/min Normal >60 [facility] Comment on above: Result Comment: Afri can Vietnamese GFR Calc Performed By: #### L 100.0200, L500.2900, L400.0100 ####[facility] [address] [place], [address] GAP 6 Normal 5-15 [facility] Comment on above: Performed By: #### L 100.0200, L500.2900, L400.0100 ####[facility] [address] [place], [address] GFR/1.73 sq M.predicted among non-blacks MDRD (S/P/Bld) [Vol rate/Area] 85 mL/min/{1.73_m2} Normal >60 [facility] Comment on above: Result Comment: Non- GFR Calc Performed By: #### L 100.0200, L500.2900, L400.0100 ####[facility] [address] [place], [address] Globulin (S) [Mass/Vol] 3.9 g/dL Normal 2.2-4.2 [facility] Comment on above: Performed By: #### L 100.0200, L500.2900, L400.0100 ####[facility] [address] [place], [address] Glucose [Mass/Vol] 94 mg/dL Normal 74-[address] [facility] Comment on above: Performed By: #### L 100.0200, L500.2900, L400.0100 ####[facility] [address] [place], [address] LDH 170 U/L Normal 84-246 [facility] Comment on above: Performed By: #### L 100.0200, L500.2900, L400.0100 ####[facility] [address] [place], [address] Phosphate [Mass/Vol] 3.6 mg/dL Normal 2.5-4.9 [facility] Comment on above: Performed By: #### L 100.0200, L500.2900, L400.0100 ####[facility] [address] [place], [address] Potassium [Moles/Vol] 3.7 mmol/L Normal 3.5-5.1 [facility] Comment on above: Performed By: #### L 100.0200, L500.2900, L400.0100 ####[facility] [address] [place], [address] Sodium [Moles/Vol] 140 mmol/L Normal 136-[address] [facility] Comment on above: Performed By: #### L 100.0200, L500.2900, L400.0100 ####[facility] [address] [place], [address] T PROT 7.4 g/dL Normal 6.4-8.2 [facility] Comment on above: Performed By: #### L 100.0200, L500.2900, L400.0100 ####[facility] [address] [place], [address] Triglyceride [Mass/Vol] 120 mg/dL Normal [facility] Comment on above: Result Comment: The drugs N-Acetylcysteine and Metamizole may falsely depress this assay. Serum Triglycerides Reference Interval Normal <150 mg/dL Borderline high 150 - 199 mg/dL High 200 - 499 mg/dL Very High > or = 500 mg/dL Performed By: #### L 100.0200, L500.2900, L400.0100 ####[facility] [address] [place], [address] Urea nitrogen [Mass/Vol] 16 mg/dL Normal 7-18 [facility] Comment on above: Performed By: #### L 100.0200, L500.2900, L400.0100 ####[facility] [address] [place], [address] URIC 4.3 mg/dL Normal 2.6-6.0 [facility] Comment on above: Result Comment: The drugs N-Acetylcysteine and Metamizole may falsely depress this assay. Performed By: #### L 100.0200, L500.2900, L400.0100 ####[facility] [address] [place], [address] Urinalysis, Employeeon 02-24 LEUK ESTERASE Negative Normal Negative [facility] Comment on above: Order Comment: CLEAN CATCH Performed By: #### L 100.0200, L500.2900, L400.0100 ####[facility] [address] [place], [address] BILIRUBIN URINE Negative Normal Negative [facility] Comment on above: Order Comment: CLEAN CATCH Performed By: #### L 100.0200, L500.2900, L400.0100 ####[facility] [address] [place], [address] Clarity (U) Clear Normal Clear [facility] Comment on above: Order Comment: CLEAN CATCH Performed By: #### L 100.0200, L500.2900, L400.0100 ####[facility] [address] [place], [address] Color (U) Yellow Normal Yellow [facility] Comment on above: Order Comment: CLEAN CATCH Performed By: #### L 100.0200, L500.2900, L400.0100 ####[facility] [address] [place], [address] GLUCOSE, UR Normal Normal Normal [facility] Comment on above: Order Comment: CLEAN CATCH Performed By: #### L 100.0200, L500.2900, L400.0100 ####[facility] [address] [place], [address] KETONE UR Negative Normal Negative [facility] Comment on above: Order Comment: CLEAN CATCH Performed By: #### L 100.0200, L500.2900, L400.0100 ####[facility] [address] [place], [address] Nitrite Ql (U) Negative Normal Negative [facility] Comment on above: Order Comment: CLEAN CATCH Performed By: #### L 100.0200, L500.2900, L400.0100 ####[facility] [id number] [place], [address] OCCULT BLOOD-UR Negative Normal Negative [facility] Comment on above: Order Comment: CLEAN CATCH Performed By: #### L 100.0200, L500.2900, L400.0100 ####[facility] [id number] [place], [address] pH UR 6.0 Normal 5.0 - 8.0 [facility] Comment on above: Order Comment: CLEAN CATCH Performed By: #### L 100.0200, L500.2900, L400.0100 ####[facility] [address] [place], [address] PROT DIPSTX Negative Normal Negative [facility] Comment on above: Order Comment: CLEAN CATCH Performed By: #### L 100.0200, L500.2900, L400.0100 ####[facility] [address] [place], [address] SP.GR. DIPSTX 1.010 Normal 1.002-1.030 [facility] Comment on above: Order Comment: CLEAN CATCH Performed By: #### L 100.0200, L500.2900, L400.0100 ####[facility] [id number] [place], [address] UROBILI Normal Normal Normal [facility] Comment on above: Order Comment: CLEAN CATCH Performed By: #### L 100.0200, L500.2900, L400.0100 ####[facility] [address] [place], [address] Absolute lymphocyte countOrd ered By: Janinejoss Carnger on 02-02-2023 Lymphocytes Auto (Unsp spec) [#/Vol] 2.54 10*3/uL 0.83-4.51 [facility] Basophil percentageOrdered B y: Janine Carnger on 02-02-2023 Basophils/100 WBC (Bld) 0.4 % 0-1 [facility] Bilirubin [Mass/Vol] 0.50 mg/dL 0.20-1.00 [facility] Comment on above: For patients on eltr ombopag therapy, use of Dimension Sayre TBIL is not recommended. Chloride [Moles/Vol] 106 mmol/L 98-107 [facility] Cholesterol [Mass/Vol] 202 mg/dL <200 [facility] Comment on above: <200 mg/dL Desirable 200-240 mg/dL Borderline >240 mg/dL High Risk Eosinophils/100 WBC (Bld) 1.1 % 0-5 [facility] Glucose [Mass/Vol] 101 mg/dL 74-[address] [facility] Comment on above: Fasting Glucose resu lt from 100 to 125 mg/dL suggests IMPAIRED HOMEOSTASIS per A.D.A. criteria. Neutrophils (Bld) [#/Vol] 4.7 10*3/uL 2.0-7.7 [facility] Neutrophils/100 WBC (Bld) 61.4 % 47-70 [facility] Potassium [Moles/Vol] 4.5 mmol/L 3.5-5.1 [facility] Protein [Mass/Vol] 7.5 g/dL 6.4-8.[address] [facility] Sodium [Moles/Vol] 138 mmol/L 136-[address] [facility] Triglyceride [Mass/Vol] 80 mg/dL <199 [facility] Comment on above: The drugs N-Acetylcy steine and Metamizole may falsely depress this assay.Serum Triglycerides Reference Interval Normal <150 mg/dL Borderline high 150 - 199 mg/dL High 200 - 499 mg/dL Very High > or = 500 mg/dL WBC (Bld) [#/Vol] 7.6 10*3/uL 4.4-11.[address] [facility] Blood erythrocytes count (nu mber/volume)Ordered By: Janine Miranda on 02-02-2023 RBC (Bld) [#/Vol] 4.47 10*6/uL 4.2-5.4 [facility] Blood hemoglobin measurement (mass/volume)Ordered By: Janine Miranda on 02-02-2023 Hemoglobin (Bld) [Mass/Vol] 12.0 g/dL 12.0-15.0 [facility] Blood lymphocytes/100 leukoc ytesOrdered By: Janine Miradna on 02-02-2023 Lymphocytes/100 WBC (Bld) 33.4 % 19-41 [facility] Blood monocytes/100 leukocyt esOrdered By: Janine Miranda on 02-02-2023 Monocytes/100 WBC (Bld) 3.2 % 0-10 [facility] Blood platelet mean volumeOr dered By: Janine Miranda on 02-02-2023 Platelet mean volume (Bld) [Entitic vol] 9.8 fL 6.2-12.0 [facility] Determination of erythrocyte mean corpuscular volume (MCV)Ordered By: Janine Miranda on 02-02-2023 MCV (RBC) [Entitic vol] 86.8 fL 81-99 [facility] Hematocrit Auto (Bld) [Volum e fraction]Ordered By: Janine Miranda on 02-02-2023 Hematocrit (Bld) [Volume fraction] 38.8 % 37-47 [facility] Laboratory - Chemistry and C hemistry - challengeOrdered By: Janine Miranda on 02-02-2023 ALP [Catalytic activity/Vol] 98 U/L 45-117 [facility] ALT [Catalytic activity/Vol] 25 U/L 13-56 [facility] CO2 [Moles/Vol] 28.0 mmol/L 21.0-32.0 [facility] Globulin (S) [Mass/Vol] 4.1 g/dL 2.2-4.2 [facility] Urea nitrogen/Creatinine [Mass ratio] 23.9 mg/mg 10-20 [facility] Laboratory - Hematology and Cell countsOrdered By: Janine Miranda on 02-02-2023 Erythrocyte distribution width (RBC) [Entitic vol] 41.6 fL 35.1-43.[address] [facility] Erythrocyte distribution width (RBC) [Ratio] 13.2 % 11.6-14.6 [facility] Immature granulocytes/100 WBC (Bld) 0.500 % 0.0-0.9 [facility] Comment on above: IG% - Immature Granu locytes (promyelocytes, myelocytes and metamyelocytes) > 1% indicates that a LEFT SHIFT is Present. MCH (RBC) [Entitic mass] 26.8 pg 27.0-32.0 [facility] Nucleated RBC/100 WBC (Bld) [Ratio] 0 % 0-5 [facility] MCHC Auto (RBC) [Mass/Vol]Or dered By: Janine Miranda on 02-02-2023 MCHC (RBC) [Mass/Vol] 30.9 g/dL 32-36 [facility] No Panel InformationOrdered By: Janine Miranda on 02-02-2023 Estimated GFR (MDRD) Amer 103 mL/min >60 [facility] Comment on above: GFR Calc Estimated GFR (MDRD) Non-Af Amer 86 mL/min >60 [facility] Comment on above: Non- GFR Calc Thyroid Stimulating Hormone (TSH) 1.76 uIU/mL 0.358-3.74 [facility] Vitamin D 25-Hydroxy 25.9 ng/mL [facility] Comment on above: Vitamin D 25(OH) Sta tus Range Deficiency <20 ng/mL (50nmol/L) Insufficiency 20 - 30 ng/mL (50 - 75 nmol/L) Sufficiency 30 - 100 ng/mL (75 - 250 nmol/L) Toxicity >100 ng/mL (>250 nmol/L) Platelets bldOrdered By: Kyle Miranda on 02-02-2023 Platelets (Bld) [#/Vol] 356 10*3/uL 150-450 [facility] Serum or plasma albumin crow urement (mass/volume)Ordered By: Janine Miranda on 02-02-2023 Albumin [Mass/Vol] 3.4 g/dL 3.2-5.[address] [facility] Serum or plasma albumin/glob ulin mass ratioOrdered By: Janine Miranda on 02-02-2023 Albumin/Globulin [Mass ratio] 0.8 {ratio} 0.9-2.4 [facility] Serum or plasma calcium crow urement (mass/volume)Ordered By: Janine Miranda on 02-02-2023 Calcium [Mass/Vol] 9.1 mg/dL 8.5-10.[address] [facility] Serum or plasma cholesterol in HDL measurement (mass/volume)Ordered By: Janine Miranda on 02-02-2023 Cholesterol in HDL [Mass/Vol] 51 mg/dL >40 [facility] Comment on above: The drugs N-Acetylcy steine and Metamizole may falsely depress this assay. Reference Range HDL <40 mg/dL Low HDL Cholesterol HDL >or= 60 mg/dL High HDL Cholesterol Serum or plasma cholesterol in VLDL measurement (mass/volume)Ordered By: Janine Miranda on 02-02-2023 Cholesterol in VLDL [Mass/Vol] 16 mg/dL 5-40 [facility] Serum or plasma creatinine m easurement (mass/volume)Ordered By: Janine Miranda on 02-02-2023 Creatinine [Mass/Vol] 0.75 mg/dL 0.55-1.02 [facility] Comment on above: The validity of the calculated GFR & GFRAA in patients over 70 years has not been determined. Clinical correlation is essential. Serum or plasma low density lipoprotein (LDL) cholesterol measurement (mass/volume)Ordered By: Janine Miranda on 02-02-2023 Cholesterol in LDL [Mass/Vol] 135 mg/dL 0-130 [facility] Serum or plasma urea nitroge n measurement (mass/volume)Ordered By: Janine Miranda on 02-02-2023 Urea nitrogen [Mass/Vol] 18 mg/dL 7-18 [facility] Thin prep Papanicolaou smear with manual screeningOrdered By: Janine Miranda on 02-02-2023 Thin prep Papanicolaou smear with manual screening 14 U/L 15-37 [facility] Thin prep Papanicolaou smear with manual screening 4 5-15 [facility] Laboratory - Chemistry and C hemistry - challengeon 02-06-2022 Cobalamin (Vitamin B12) [Mass/Vol] 516 pg/mL 211-911 [facility] Work Phone: No Panel Informationon 02-06 Thyroid Stimulating Hormone (TSH) 3.45 uIU/mL 0.358-3.74 [facility] Work Phone: [phone] Vitamin D 25-Hydroxy 18.9 ng/mL [facility] Work Phone: [phone] Comment on above: Vitamin D 25(OH) Sta tus Range Deficiency <20 ng/mL (50nmol/L) Insufficiency 20 - 30 ng/mL (50 - 75 nmol/L) Sufficiency 30 - 100 ng/mL (75 - 250 nmol/L) Toxicity >100 ng/mL (>250 nmol/L) Serum or plasma ferritin lorena surement (mass/volume)on 02-06-2022 Ferritin [Mass/Vol] 50 ng/mL 8-252 [facility] Work Phone: [phone] Whole blood hemoglobin A1c/t otal hemoglobin ratio (mass fraction)on 02-06-2022 HbA1c (Bld) [Mass fraction] 5.6 % 3.8-5.6 [facility] Work Phone: Comment on above: Normal < 5.7 % Predi abetic 5.7 - 6.4 % Diabetic >or= 6.5 % Please note range changes. Absolute lymphocyte counton 01-11-2022 Lymphocytes Auto (Unsp spec) [#/Vol] 2.76 10*3/uL 0.83-4.51 [facility] Work Phone: [phone] Absolute reticulocyte counto n 01-11-2022 Reticulocytes (Bld) [#/Vol] 0.00 10*3/uL 0-5 [facility] Work Phone: Basophil percentageon 2021 Basophil percentage 3.7 mg/dL 2.5-4.9 [facility] Work Phone: [phone] Bilirubin [Mass/Vol] 0.60 mg/dL 0.20-1.00 [facility] Work Phone: Comment on above: For patients on eltr ombopag therapy, use of Dimension Sayre TBIL is not recommended. Chloride [Moles/Vol] 103 mmol/L 98-107 [facility] Work Phone: Cholesterol [Mass/Vol] 199 mg/dL <200 [facility] Work Phone: [phone] Comment on above: <200 mg/dL Desirable 200-240 mg/dL Borderline >240 mg/dL High Risk Glucose [Mass/Vol] 94 mg/dL 74-[address] [facility] Work Phone: [phone] Neutrophils (Bld) [#/Vol] 5.6 10*3/uL 2.0-7.7 [facility] Work Phone: [phone] Potassium [Moles/Vol] 4.2 mmol/L 3.5-5.1 [facility] Work Phone: [phone] Protein [Mass/Vol] 7.8 g/dL 6.4-8.[address] [facility] Work Phone: [phone] Sodium [Moles/Vol] 138 mmol/L 136-[address] [facility] Work Phone: [phone] Triglyceride [Mass/Vol] 81 mg/dL <199 [facility] Work Phone: [phone] Comment on above: The drugs N-Acetylcy steine and Metamizole may falsely depress this assay.Serum Triglycerides Reference Interval Normal <150 mg/dL Borderline high 150 - 199 mg/dL High 200 - 499 mg/dL Very High > or = 500 mg/dL WBC (Bld) [#/Vol] 8.9 10*3/uL 4.4-11.[address] [facility] Work Phone: [phone] Blood erythrocytes count (nu mber/volume)on 01-11-2022 RBC (Bld) [#/Vol] 4.60 10*6/uL 4.2-5.4 [facility] Work Phone: [phone] Blood hemoglobin measurement (mass/volume)on 01-11-2022 Hemoglobin (Bld) [Mass/Vol] 12.3 g/dL 12.0-15.0 [facility] Work Phone: [phone] Blood platelet mean volumeon 01-11-2022 Platelet mean volume (Bld) [Entitic vol] 9.8 fL 6.2-12.0 [facility] Work Phone: Determination of erythrocyte mean corpuscular volume (MCV)on 01-11-2022 MCV (RBC) [Entitic vol] 85.2 fL 81-99 [facility] Work Phone: Direct bilirubinon Bilirubin.direct [Mass/Vol] 0.11 mg/dL 0.00-0.30 [facility] Work Phone: [phone] Hematocrit Auto (Bld) [Volum e fraction]on 01-11-2022 Hematocrit (Bld) [Volume fraction] 39.2 % 37-47 [facility] Work Phone: [phone] Laboratory - Chemistry and C hemistry - challengeon 01-11-2022 ALP [Catalytic activity/Vol] 96 U/L 45-117 [facility] Work Phone: [phone] ALT [Catalytic activity/Vol] 25 U/L 13-56 [facility] Work Phone: [phone] Cholesterol.total/Cholest kati in HDL [Mass ratio] 3.60 {ratio} [facility] Work Phone: [phone] CO2 [Moles/Vol] 29.0 mmol/L 21.0-32.0 [facility] Work Phone: [phone] Globulin (S) [Mass/Vol] 4.4 g/dL 2.2-4.2 [facility] Work Phone: [phone] Urea nitrogen/Creatinine [Mass ratio] 17.3 mg/mg 10-20 [facility] Work Phone: [phone] Laboratory - Hematology and Cell countson 01-11-2022 Erythrocyte distribution width (RBC) [Entitic vol] 43.2 fL 35.1-43.[address] [facility] Work Phone: [phone] Erythrocyte distribution width (RBC) [Ratio] 13.9 % 11.6-14.6 [facility] Work Phone: [phone] MCH (RBC) [Entitic mass] 26.7 pg 27.0-32.0 [facility] Work Phone: [phone] Nucleated RBC/100 WBC (Bld) [Ratio] 0 % 0-5 [facility] Work Phone: MCHC Auto (RBC) [Mass/Vol]on 01-11-2022 MCHC (RBC) [Mass/Vol] 31.4 g/dL 32-36 [facility] Work Phone: No Panel Informationon 01-11 Estimated GFR (MDRD) Amer 104 mL/min >60 [facility] Work Phone: Comment on above: GFR Calc Estimated GFR (MDRD) Non-Af Amer 86 mL/min >60 [facility] Work Phone: Comment on above: Non- GFR Calc Platelets bldon 01-11-2022 Platelets (Bld) [#/Vol] 362 10*3/uL 150-450 [facility] Work Phone: [phone] Segmented neutrophils/100 WB C Auto (Bld)on 01-11-2022 Segmented neutrophils/100 WBC (Bld) 63.5 % 47-70 [facility] Work Phone: Serum or plasma albumin crow urement (mass/volume)on 01-11-2022 Albumin [Mass/Vol] 3.4 g/dL 3.2-5.[address] [facility] Work Phone: Serum or plasma albumin/glob ulin mass ratioon 01-11-2022 Albumin/Globulin [Mass ratio] 0.8 {ratio} 0.9-2.4 [facility] Work Phone: [phone] Serum or plasma calcium crow urement (mass/volume)on 01-11-2022 Calcium [Mass/Vol] 9.1 mg/dL 8.5-10.[address] [facility] Work Phone: [phone] Serum or plasma cholesterol in HDL measurement (mass/volume)on 01-11-2022 Cholesterol in HDL [Mass/Vol] 55 mg/dL >40 [facility] Work Phone: Comment on above: The drugs N-Acetylcy steine and Metamizole may falsely depress this assay. Reference Range HDL <40 mg/dL Low HDL Cholesterol HDL >or= 60 mg/dL High HDL Cholesterol Serum or plasma cholesterol in VLDL measurement (mass/volume)on 01-11-2022 Cholesterol in VLDL [Mass/Vol] 16 mg/dL 5-40 [facility] Work Phone: [phone] Serum or plasma creatinine m easurement (mass/volume)on 01-11-2022 Creatinine [Mass/Vol] 0.75 mg/dL 0.55-1.02 [facility] Work Phone: Comment on above: The validity of the calculated GFR & GFRAA in patients over 70 years has not been determined. Clinical correlation is essential. Serum or plasma low density lipoprotein (LDL) cholesterol measurement (mass/volume)on 01-11-2022 Cholesterol in LDL [Mass/Vol] 128 mg/dL 0-130 [facility] Work Phone: Serum or plasma urea nitroge n measurement (mass/volume)on 01-11-2022 Urea nitrogen [Mass/Vol] 13 mg/dL 7-18 [facility] Work Phone: [phone] Serum or plasma uric acid me asurement (mass/volume)on 01-11-2022 Urate [Mass/Vol] 4.7 mg/dL 2.6-6.0 [facility] Work Phone: Comment on above: The drugs N-Acetylcy steine and Metamizole may falsely depress this assay. Thin prep Papanicolaou smear with manual screeningon 01-11-2022 Thin prep Papanicolaou smear with manual screening 17 U/L 15-37 [facility] Work Phone: [phone] Thin prep Papanicolaou smear with manual screening 6 5-15 [facility] Work Phone: [phone] Thin prep Papanicolaou smear with manual screening 168 U/L 84-246 [facility] Work Phone: Laboratory - Microbiology an d Antimicrobial susceptibilityon 12-08-2021 SARS-CoV-2 (COVID-19) RNA ALENA+probe Ql (Unsp spec) Detected [facility] Work Phone: No Panel Informationon 12-08 POC Nasal Swab Influenza A,B Not detected [facility] Work Phone: POC Nasal Swab RSV Not detected [facility] Work Phone: Vital Signs Date Time Vital Sign Value Performing Clinician Faci mehnazy 01-26-2025 07:17-0400 Body height 162.56 cm Alfie Laura MD Work Phone: [facility] 01-26-2025 07:17-0400 Body mass index (BMI) [Ratio] 41 kg/m2 Alfie Laura MD Work Phone: [facility] 01-26-2025 07:17-0400 Body temperature 98.3 [degF] Alfie Laura MD Work Phone: [facility] 01-26-2025 07:17-0400 Body weight 108.4 kg Alfie Laura MD Work Phone: [facility] 01-26-2025 07:17-0400 Diastolic blood pressure 82 mm[Hg] Alfie Laura MD Work Phone: [facility] 01-26-2025 07:17-0400 Heart rate 104 /min Alfie Laura MD Work Phone: [facility] 01-26-2025 07:17-0400 SaO2% (BldA) [Mass fraction] 98 % Alfie Laura MD Work Phone: [facility] 01-26-2025 07:17-0400 Systolic blood pressure 116 mm[Hg] Alfie Laura MD Work Phone: [facility] 04-02-2023 14:54-0500 Body height 162.56 cm DO Janine Miranda Work Phone: [facility] 04-02-2023 14:54-0500 Body mass index (BMI) [Ratio] 41.3 kg/m2 DO Janine Miranda Work Phone: [facility] 04-02-2023 14:54-0500 Body weight 109.37 kg DO Janine Miranda Work Phone: [facility] Encounters Encounter Date Encounter Type Care Provider Facility Start: 02-02-2025 Registered [facility] Start: 02-02-2025 End: 02-02-2025 ambulatory Alfie Laura MD Work Phone: -Laboratory Start: 02-02-2025 End: 02-02-[address] Alfie Laura MD -Laboratory Work Phone: Start: 02-02-2025 End: 02-02-2025 ambulatory Chalon Valentín Facility:[facility] Start: 01-26-2025 End: 01-26-2025 Patient encounter procedure [facility]al[facility] Work Phone: Start: 01-26-2025 End: 01-26-2025 ambulatory Alfie Laura MD Work Phone: [facility] Start: 01-26-2025 End: 01-26-2025 Patient encounter procedure Leland TOLEDO [facility] Work Phone: Start: 01-26-2025 End: 01-26-2025 ambulatory Alfie Laura MD Work Phone: [facility] Start: 06-26-2024 End: 06-26-2024 ambulatory Chalon Valentín Facility:[facility] Start: 05-01-2024 End: 05-01-2024 ambulatory Chalon Valentín Facility:[facility] Start: 02-25-2024 ambulatory Health Risk Assessment Facility:[facility] Start: 04-05-2023 End: 04-05-2023 ambulatory DO Janine Miranda Work Phone: [facility] Work Phone: Start: 04-05-2023 End: 04-05-2023 Patient encounter procedure DO Janine Miranda Work Phone: [facility]-Outpatient Breast Imaging Work Phone: Start: 04-02-2023 End: 04-02-2023 Patient encounter procedure DO Janine Miranda Work Phone: [facility] Work Phone: Start: 03-20-2023 End: 03-20-2023 ambulatory [facility] Work Phone: Start: 03-20-2023 End: 03-20-2023 Patient encounter procedure [facility]Radiology, [facility] Work Phone: Start: 02-02-2023 End: 02-02-2023 ambulatory [facility] Work Phone: Start: 02-02-2023 End: 02-02-2023 Patient encounter procedure [facility]Laboratory Work Phone: Start: 02-06-2022 End: 02-06-[address] Dnota Negrete Work Phone: [facility] Work Phone: Start: 02-06-2022 End: 02-06-[address] Donta Negrete Work Phone: [facility]-Laboratory Start: 01-11-[address] Donta prakash Work Phone: [facility] Start: 12-08-2021 End: 12-08-[address] Donta Negrete Work Phone: [facility] Start: 12-07-[address] [facility] prakash [facility] Date Procedure Procedure Detail Performing Clinician Start: 02-02-2025 Serum inorganic phos phate measurement Alfie Laura MD Work Phone: Start: 02-02-2025 Serum progesterone measurement Alfie Laura MD Work Phone: Comment on above: Follicular phase 0.1 - 0.9 Luteal phase 1.8 - 23.9 Ovulation phase 0.1 - 12.0 First trimester 11.0 - 44.3 Second trimester 25.4 - 83.3 Third trimester 58.7 - 214.0 Postmenopausal 0.0 - 0.1Performed at: [address] [place] [id number] Director: Alan Coates PhD, Phone: [phone] Start: 02-02-2025 Urnls dip stick/tabl et reagent auto microscopy Alfie Laura MD Work Phone: Start: 02-02-2025 Follicle stimulating hormone measurement Alfie Laura MD Work Phone: Comment on above: FEMALE:Follicular: 1 .4 - 18.1 mIU/mLMidcycle: 3.4 - 33.4 mIU/mLLuteal: 1.5 - 9.1 mIU/mLPost Menopause: 23.0 - 116.3 mIU/mLMALE: 1.4 - 18.1 mIU/mL Start: 04-05-2023 Screening mammography D Samantha Miranda Work Phone: Start: 03-20-2023 Radiologic examinati on of knee Viral antigen assay Dr. Donta Negrete Work Phone: Plan of Treatment Date Care Activity Detail Author [facility] Immunizations Immunization Date Immunization Notes Care Provider Fa cili 03-06-2024 influenza, seasonal, injectable, preservative free Alfie Laura MD Work Phone: [facility] 03-08-2023 Covid (Spikevax) [facility] 02-15-2023 influenza, injectabl e, quadrivalent, preservative free [facility] 03-08-2022 influenza, injectabl e, quadrivalent, preservative free [facility] 12-02-2021 Covid (Pfizer) Dr. Donta moreira Work Phone: [facility] 03-15-2021 Covid (Moderna) Dr. Donta portillo Work Phone: [facility] 02-23-2021 influenza, injectabl e, quadrivalent, preservative free [facility] 02-23-2021 influenza, seasonal, injectable Dr. Donta Negrete Work Phone: [facility] Work Phone: 06-16-2020 Covid (Moderna) Dr. Donta portillo Work Phone: [facility] 05-19-2020 Covid (Moderna) Dr. Donta portillo Work Phone: [facility] 03-08-2020 influenza, injectabl e, quadrivalent, preservative free [facility] 03-08-2020 influenza, seasonal, injectable Dr. Donta Negrete Work Phone: [facility] Work Phone: 02-13-2019 influenza, injectabl e, quadrivalent, preservative free [facility] 02-13-2019 influenza, seasonal, injectable Dr. Donta Negrete Work Phone: [facility] Work Phone: 02-15-2018 influenza, injectabl e, quadrivalent, preservative free [facility] 02-15-2018 influenza, seasonal, injectable Dr. Donta Negrete Work Phone: [facility] Work Phone: 03-05-2017 influenza, injectabl e, quadrivalent, preservative free [facility] 03-05-2017 influenza, seasonal, injectable Dr. Donta Negrete Work Phone: [facility] Work Phone: 02-17-2016 influenza, injectabl e, quadrivalent, preservative free [facility] 02-17-2016 influenza, seasonal, injectable Dr. Donta Negrete Work Phone: [facility] Work Phone: 03-18-2015 influenza, injectabl e, quadrivalent, preservative free [facility] 03-18-2015 influenza, seasonal, injectable Dr. Donta Negrete Work Phone: [facility] Work Phone: 02-04-2014 influenza, injectabl e, quadrivalent, preservative free [facility] 02-04-2014 influenza, seasonal, injectable Dr. Donta Negrete Work Phone: [facility] Work Phone: 12-01-2013 hepatitis B vaccine, pediatric or pediatric/adolescent dosage Dr. Donta Negrete Work Phone: [facility] 07-01-2013 hepatitis B vaccine, pediatric or pediatric/adolescent dosage Dr. Donta Negrete Work Phone: [facility] Payers Date Payer Category Payer Unknown [id number] 2024 Self-pay [id number] Unknown [id number] Unknown [id number] Unknown [id number] Unknown [id number] 2.16.8 [id number] Unknown [id number] 2.16.8 [id number] Unknown [id number] 2.16.8 [id number] Unknown [id number] 2.16.8 [id number] Unknown [id number] 2.16.8 [id number] Unknown [id number] 2.16.8 [id number] Unknown [id number] 2.16.8 [id number] Unknown [id number] 2.16.8 [id number] Social History Date Type Detail Facility Start: 04-11-2021 End: 04-02-2023 Tobacco smoking status NHIS Unknown if ever smoked [facility] Start: 03-26-2020 Non-smoker [facility] Start: 1970 Sex Assigned At Female [facility] Start: 08-08-2023 Tobacco smoking stat us NHIS Never smoked tobacco (finding) [facility] Sex Female [facility] Goals Date Patient Goal Desired Activity /State Chief complaint+Reason for visit Narrative Note Date & Type Note Facility Chief complaint+Reason for v isit Narrative [facility] Work Phone: Evaluation note Note Date & Type Note Facility Evaluation note No assessment information availa ble [facility] Work Phone: Evaluation note Note Date & Type Note Facility Evaluation note Diagnosis Onset Date Osteoarthritis of right knee noneactive [facility] Work Phone: Reason for referral (narrative) Note Date & Type Note Facility Reason for referral (narrative) No reason for referral information available [facility] Work Phone: Family History No Family History [...] Date/ Time Living Will No April 11 021 4:28pm 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 No April 11, 2021 4:28pm Advance Directive Response Recorded Date/ Time Living Will No April 11 021 3:28pm Power of 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 No April 11, 2021 3:28pm Chief Complaint [...] EMPLOYEE COVID/ [facility] January 26, 2025 10:35am Chief Complaint Admit Date SORE THROAT, FEVER, COUGH, ACHES Septemb er 2024 7:13am EMPLOYEE COVID/ [facility] January 26, 2025 10:35am INT LABS February 02, 2025 6:42am EMPLOYEE LABS February 02, 2025 6:45am Summary Purpose Additional Source Comments Care Teams [...] 2025 End: January 26, 2025 Leland Escalante PA PA Attending Provider Active Start: January 26, 2025 End: January 26, 2025 Team Status: Active Member Role/Relationship Status Dates Dr. Pato Rodriguez MD Primary care physician Active Alfie Laura MD Primary care physician Active Team Status: Inactive Member Role/Relationship Status Dates Alfie Laura MD Primary care physician Active S tart: January 26, 2025 End: January 26, 2025 Alfie Laura MD Referring Provider Active Start : January 26, 2025 End: January 26, 2025 Leland TOLEDO PA Attending physician Active Start: January 26, 2025 End: January 26, 2025 Team Status: Inactive Member Role/Relationship Status Dates Alfie Laura MD Primary care physician Active S tart: January 26, 2025 End: January 26, 2025 Alfie Laura MD Referring Provider Active Start : January 26, 2025 End: January 26, 2025 Leland Escalante PA, PA Attending physician Active Start: January 26, 2025 End: January 26, 2025 Team Status: Inactive Member Role/Relationship Status Dates Alfie Laura MD Primary care physician Active S tart: February 02, 2025 End: February 02, 2025 Alfie Laura MD Attending physician Active Star t: February 02, 2025 End: February 02, 2025 Alfie Laura MD Referring Provider Active Start : February 02, 2025 End: February 02, 2025 Team Status: Active Member Role/Relationship Status Dates Alfie Laura MD Primary care physician Active S tart: February 02, 2025 Health Risk Assessment Attending physician Active Start: February 02, 2025 Health Risk Assessment Referring Provider Active Start: February 02, 2025 INFORMATION SOURCE (unrecogn ized section and content) DATE CREATED AUTHOR 02/21/2025 [facility] FOR RECORDS PERTAINING TO PATIENTS WHO ARE [...] BE BASED ON THE PRIMARY CLINICAL RECORDS. [employer] provides no warranty or guarantee of the accuracy or completeness of information in this document.
[2025-05-20 08:52] LABS: Vitamin D,25 Hydroxy 20.6 ng/mL (30-100)
== END | disposition home or self-care (01) ==
PROVIDERS: PCP Family Medicine; Referring Provider Family Medicine; Visit Provider Family Medicine
DX: E11.65 Type 2 diabetes mellitus with hyperglycemia (principal); I10 Essential (primary) hypertension; E78.2 Mixed hyperlipidemia; Z79.899 Other long term (current) drug therapy
CPT/HCPCS: 36415; 82306